=== PATIENT | female | born 1945 | race Caucasian/White ===

== ENCOUNTER 2018-03-21 14:32 | Inpatient (IN) ==
--- NOTE | 2018-03-21 14:42 | Emergency Department Note ---
Disposition Clinical Impression: Elevated troponin, Pulmonary edema, Pleural effusion CHF (congestive heart failure) Qualifiers: Heart failure type: unspecified Heart failure chronicity: acute Qualified Code( s): I50.9 - Heart failure, unspecified Renal failure Qualifiers: Renal failure chronicity: acute on chronic Acute renal failure type: unspecified Chronic kidney disease stage: unspecified stage Qualified Code(s): N17.9 - Acute kidney failure, unspecified; N18.9 - Chronic kidney disease, unspecified; N18.9 - Chronic kidney disease, unspecified Disposition: Admitted As Inpatient Condition: Fair Referrals: Fausto Gao DO [Primary Care Provider] - Time of Disposition: 16:29 SOB HPI - General Stated Complaint: LILIAM Time Seen by Provider: 03/21/18 14:34 Source: patient Mode of arrival: ambulatory Limitations: no limitations Nursing Notes Reviewed: Yes Vital Signs Reviewed: Yes - History of Present Illness Patient presents to the ED with the chief complaint of dyspnea. States that she has a history of COPD and it is been flaring up for about a month. States her shortness of breath worsened today and she has gotten to the point where she is having exertional symptoms, which she had not previously. Nonproductive cough. No fever, chest pain, abdominal pain, vomiting or diarrhea. Does complain of some chest tightness associated with her difficulty breathing. No history of DVT, PE or malignancy. States that she is on Plavix for some sort of aortic valve surgery, but she is unsure if this was a replacement or not and states that was many years ago. - Related Data Home Medications Medication Instructions Recorded Confirmed Aspirin [Lo-Dose Aspirin EC] 81 mg PO DAILY 06/15/16 06/15/16 Atenolol 100 mg PO DAILY 06/15/16 06/15/16 Clopidogrel [Plavix] 75 mg PO DAILY 06/15/16 06/15/16 Ergocalciferol (VITAMIN D2) 50,000 unit PO 3XW MDD mon, wed, 06/15/16 06/15/16 [Vitamin D2 (50,000 UNIT)] fri Isosorbide MONOnitrate (24 HR) 30 mg PO DAILY 06/15/16 06/15/16 [Imdur] Simvastatin [Zocor] 40 mg PO HS 06/15/16 06/15/16 amLODIPine [Norvasc] 10 mg PO DAILY 06/15/16 06/15/16 Previous Rx's Medication Instructions Recorded HYDROcodone/Acet 5/325 mg [[place] 1 tab PO Q6H PRN #14 tab 06/15/16 5-325 mg] Allergies Allergy/AdvReac Type Severity Reaction Status Date / Time Iodinated Contrast- Oral and AdvReac Nausea Verified 03/21/18 14:52 IV Dye Review of Systems: As reviewed in the HPI. All other systems reviewed are negative or normal. Past Medical History - Past Medical History Attestation: Yes The following information was validated with the patient. Source: patient Medical history: Reports: hyperlipidemia, hypertension, renal disease, valvular heart disease, other Surgical history: Reports: cholecystectomy, other Psychiatric history: Reports: no psych history - Social History Smoking Status: Never smoker Alcohol use: Reports: none Drug use: Reports: none Physical Exam - General Limitations: no limitations General appearance: alert, in distress (resp) - Head Head exam: atraumatic, normocephalic, normal inspection - ENT ENT exam: mucous membranes dry - Neck Neck exam: Present: normal inspection, full ROM, trachea midline - Chest Chest inspection: Present: normal inspection, symmetric chest wall rise - Respiratory Respiratory exam: Present: respiratory distress, accessory muscle use. Absent: normal lung sounds bilaterally, wheezes - Cardiovascular Cardiovascular exam: Present: tachycardia, normal heart sounds - Abdominal Exam Abdominal exam: Present: soft, Non-Tender. Absent: tenderness, distention, guarding, rebound, rigidity - Extremities Exam Extremities exam: Present: normal inspection, full ROM, normal capillary refill. Absent: tenderness, pedal edema - Neurological Exam Neurological exam: Present: alert, oriented X3 - Psychiatric Psychiatric exam: Present: normal affect, normal mood - Skin Skin exam: Present: warm, dry, intact, normal color Course Course Narrative: Patient presenting with dyspnea. Having chest tightness but no chest pain. States she has a history of COPD, but is not wheezing. We will check labs, EKG , chest x-ray. - Reevaluation(s) Reevaluation #1: Patient's family is now present and states that she is on peritoneal dialysis and has been for several years. She is followed by Dr. Lai. Her labs are coming back and does look like she is in acute congestive heart failure with pulmonary edema and a left-sided pleural effusion. Her lungs remained clear. There are no Rales, but her breath sounds are decreased at the bases. Her work of breathing. Has significantly improved. Her renal functions worse than usual , so I spoke with the on-call general accounting clerk, Dr. Cowan and we both agreed that the patient may eventually need temporary HD but that in the meantime, we should give her dose of Lasix. I also started her on a nitroglycerin drip due to her hypertension and congestive heart failure. We will admit to the hospitalist service for further workup. I do not think the patient needs BiPAP at this time, but a 2 North bed would likely be the best place for her in case she does not improve with IV medications. Patient family agreeable to plan. Vital Signs O2 Sat by Pulse Oximetry 98 03/21/18 14:52 Temperature 97.4 F L 03/21/18 14:57 Pulse Rate 93 03/21/18 15:00 Respiratory Rate 24 03/21/18 15:00 Blood Pressure 190/105 03/21/18 15:00 O2 Sat by Pulse Oximetry 98 03/21/18 15:00 Oxygen Delivery Oxygen Delivery Room Air Shortness of Breath/Dyspnea - Medical Records Medical records reviewed: Yes I reviewed the patient's medical records. - Lab Data Lab results reviewed: Yes I reviewed the patient's lab results. Result diagrams: 03/21/18 14:49 03/21/18 14:49 Lab Results 03/21/18 03/21/18 03/21/18 Range/Units 14:37 14:49 14:49 WBC 6.5 (4.3-11.1) K/mcL RBC 3.91 (3.82-4.97) M/mcL Hgb 11.8 (11.5-15.4) g/dL Hct 39.0 (35.3-44.9) % MCV 99.7 (83.0-100.0) fL MCH 30.2 (28.0-33.3) pg MCHC 30.3 L (31.6-35.5) g/dL RDW 15.7 H (11.5-14.5) % Plt Count 222 (140-400) K/mcL MPV 9.6 (9.4-12.4) fL Immature Gran % 0.3 (0-4) % Seg Neutrophils % 73.3 % Lymphocytes % 16.6 % Monocytes % 7.4 % Eosinophils % 1.6 % Basophils % 0.8 % Neutrophils # 4.7 (1.6-8.9) K/mcL Lymphocytes # 1.1 (0.6-4.6) K/mcL Monocytes # 0.5 (0.0-1.3) K/mcL Eosinophils # 0.1 (0.0-0.6) K/mcL Basophils # 0.1 (0.0-0.2) K/mcL PT 11.1 (9.4-12.1) Seconds INR 1.0 APTT 32.2 (26.0-36.0) Seconds Sodium 138 (136-145) mEq/L Potassium 5.9 H (3.5-5.1) mEq/L Chloride 112 H (98-107) mEq/L Carbon Dioxide 13 L (23-29) mEq/L BUN 79 H (8-23) mg/dL Creatinine 7.16 H (0.60-1.20) mg/dL Est GFR ( Amer) 7 L (> 60) Est GFR (Non-Af Amer) 6 L (> 60) BUN/Creatinine Ratio 11 (6-26) Glucose 98 (70-105) mg/dL Calculated Osmolality 310 H (280-300) Lactic Acid (0.5-2.2) mmol/L Calcium 9.2 (8.6-10.3) mg/dL Troponin I 0.18 H* (< 0.04) ng/mL B-Natriuretic Peptide (Less than 100) pg/mL 03/21/18 03/21/18 Range/Units 14:49 14:49 WBC (4.3-11.1) K/mcL RBC (3.82-4.97) M/mcL Hgb (11.5-15.4) g/dL Hct (35.3-44.9) % MCV (83.0-100.0) fL MCH (28.0-33.3) pg MCHC (31.6-35.5) g/dL RDW (11.5-14.5) % Plt Count (140-400) K/mcL MPV (9.4-12.4) fL Immature Gran % (0-4) % Seg Neutrophils % % Lymphocytes % % Monocytes % % Eosinophils % % Basophils % % Neutrophils # (1.6-8.9) K/mcL Lymphocytes # (0.6-4.6) K/mcL Monocytes # (0.0-1.3) K/mcL Eosinophils # (0.0-0.6) K/mcL Basophils # (0.0-0.2) K/mcL PT (9.4-12.1) Seconds INR APTT (26.0-36.0) Seconds Sodium (136-145) mEq/L Potassium (3.5-5.1) mEq/L Chloride (98-107) mEq/L Carbon Dioxide (23-29) mEq/L BUN (8-23) mg/dL Creatinine (0.60-1.20) mg/dL Est GFR ( Amer) (> 60) Est GFR (Non-Af Amer) (> 60) BUN/Creatinine Ratio (6-26) Glucose (70-105) mg/dL Calculated Osmolality (280-300) Lactic Acid 0.9 (0.5-2.2) mmol/L Calcium (8.6-10.3) mg/dL Troponin I (< 0.04) ng/mL B-Natriuretic Peptide 4901 H (Less than 100) pg/mL - Radiology Data Radiology results reviewed: Yes I reviewed the patient's radiology results. - EKG Data EKG attestation: Yes I reviewed and interpreted this EKG. EKG results narrative: Sinus rhythm, rate 99, NV interval 189, QRS 86, QTC 383, normal axis Critical Care Time Critical Care Time: Yes Total Critical Care Time: 30 Attestation: I personally spent ____30__ minutes devoted to the care of this critically ill patient. This time excludes the time for billable procedures.
[2018-03-21 14:59] LABS: Basophils # 0.1 K/mcL (0.0-0.2); Basophils % 0.8 %; Eosinophils # 0.1 K/mcL (0.0-0.6); Eosinophils % 1.6 %; Hemoglobin 11.8 g/dL (11.5-15.4); Immature Granulocytes % 0.3 % (0-4); Lymphocytes # 1.1 K/mcL (0.6-4.6); Lymphocytes % 16.6 %; Mean Corpuscular HGB Conc 30.3 g/dL (31.6-35.5); Mean Corpuscular Hemoglobin 30.2 pg (28.0-33.3); Mean Corpuscular Volume 99.7 fL (83.0-100.0); Mean Platelet Volume 9.6 fL (9.4-12.4); Monocytes # 0.5 K/mcL (0.0-1.3); Monocytes % 7.4 %; Neutrophils # 4.7 K/mcL (1.6-8.9); Platelet Count 222 K/mcL (140-400); Red Blood Count 3.91 M/mcL (3.82-4.97); Red Cell Distribution Width 15.7 % (11.5-14.5); Segmented Neutrophils % 73.3 %
[2018-03-21 15:07] LABS: Prothrombin Time 11.1 Seconds (9.4-12.1)
[2018-03-21 15:09] LABS: Activated Partial Thrombo Time 32.2 Seconds (26.0-36.0)
[2018-03-21 15:23] LABS: Calcium 9.2 mg/dL (8.6-10.3); Potassium 5.9 mEq/L (3.5-5.1)
[2018-03-21 15:30] LABS: Troponin I 0.18 ng/mL (< 0.04)
[2018-03-21] MEDS ORDERED: Aspirin 325 MG TABLET PO ONE (15:31)
[2018-03-21] MEDS ORDERED: Furosemide 40 MG/4 ML VIAL IVP ONE (15:48)
[2018-03-21] MEDS: Nitroglycerin 25 MG/250 ML INFUS..BTL IVC SCH (16:01)
--- NOTE | 2018-03-21 16:18 | Emergency Department Note ---
Disposition Clinical Impression: Elevated troponin, Pleural effusion CHF (congestive heart failure) Qualifiers: Heart failure type: unspecified Heart failure chronicity: acute Qualified Code( s): I50.9 - Heart failure, unspecified Renal failure Qualifiers: Renal failure chronicity: acute on chronic Acute renal failure type: unspecified Chronic kidney disease stage: unspecified stage Qualified Code(s): N17.9 - Acute kidney failure, unspecified Pulmonary edema Qualifiers: Qualified Code(s): J81.0 - Disposition: Admitted As Inpatient Condition: Fair General Adult HPI - General Stated complaint: LILIAM Time Seen by Provider: 03/21/18 14:34 Source: patient Mode of arrival: ambulatory Limitations: no limitations - History of Present Illness HPI Narrative: 72-year-old female with history of renal insufficiency presents ED because of difficulty breathing. She has had a to 3 progression of increasing dyspnea and orthopnea. Dyspnea is worse with exertion. Denies associated pain. She was seen today by her installation helper who sent her to the emergency department. Denies fevers, chills or rigors. No productive cough. No abdominal pain. No peripheral edema. She does do home peritoneal dialysis and has been doing so without any issues. Onset (ago): week(s) Location: chest Pain Severity: moderate Pain Scale: 0 Consistency: intermittent Improves with: immobilization Worsens with: other (Exertion) Associated symptoms: Denies: chest pain, cough - Related Data Home Medications Medication Instructions Recorded Confirmed Clopidogrel [Plavix] 75 mg PO DAILY 06/15/16 03/21/18 Ergocalciferol (VITAMIN D2) 50,000 unit PO 3XW MDD sat, sat, 06/15/16 03/21/18 [Vitamin D2 (50,000 UNIT)] fri Isosorbide MONOnitrate (24 HR) 60 mg PO DAILY 06/15/16 03/21/18 [Imdur] Simvastatin [Zocor] 40 mg PO HS 06/15/16 03/21/18 amLODIPine [Norvasc] 10 mg PO BID 06/15/16 03/21/18 Calcitriol [Rocaltrol] 0.25 mcg PO DAILY 03/21/18 03/21/18 Calcium Acetate [Phos-LO] 2 cap PO TID 03/21/18 03/21/18 Furosemide [Lasix] 40 mg PO 4XW 03/21/18 03/21/18 [place]-3/Dha/Epa/Fish Oil [Fish Oil 1 cap PO TID 03/21/18 03/21/18 1,000 mg Softgel] Sodium Bicarbonate 1,300 mg PO BID 03/21/18 03/21/18 hydrALAZINE [HydrALAZINE] 25 mg PO BID 03/21/18 03/21/18 Allergies Allergy/AdvReac Type Severity Reaction Status Date / Time Iodinated Contrast- Oral and AdvReac Nausea Verified 03/21/18 14:52 IV Dye All systems ED: reviewed and negative except as stated. Constitutional: Denies: fever Cardiovascular: Denies: chest pain Past Medical History - Past Medical History Attestation: Yes The following information was validated with the patient. Medical history: Reports: hyperlipidemia, hypertension, renal disease, valvular heart disease, other Surgical history: Reports: cholecystectomy, other Psychiatric history: Reports: no psych history - Social History Smoking Status: Never smoker Smokeless Tobacco Status: No Alcohol use: Reports: none Drug use: Reports: none Physical Exam - General Limitations: no limitations General appearance: alert, in distress (resp) - Eye Eye exam: Present: normal appearance - ENT ENT exam: normal exam, normal oropharynx - Neck Neck exam: Present: trachea midline - Chest Chest inspection: Present: symmetric chest wall rise - Respiratory Respiratory exam: Present: other (Breath sounds are diminished in the bases.) - Cardiovascular Cardiovascular exam: Present: irregular rhythm - Abdominal Exam Abdominal exam: Present: soft, Non-Tender - Extremities Exam Extremities exam: Absent: tenderness - Expanded Lower Extremity Exam Lower leg exam: Absent: tenderness, erythema Neurovascular/Tendon exam: Present: normal capillary refill - Back Exam Back exam: Present: normal inspection. Absent: CVA tenderness (R), CVA tenderness (L) - Neurological Exam Neurological exam: Present: alert, oriented X3 - Psychiatric Psychiatric exam: Present: normal affect, normal mood - Skin Skin exam: Present: warm, dry Course Course Narrative: Patient has a history of renal failure with a decline in her baseline renal function now with metabolic acidosis and a bicarbonate of 13. Potassium is 5.9 but without any hemodynamic effect or any widening of her cardiac complexes. She presents with pulmonary edema and bilateral pleural effusions. Case was discussed with nephrology. She will be admitted for attempts at diuresis and may require hemodialysis. Vital Signs O2 Sat by Pulse Oximetry 98 04/20/18 14:52 Temperature 97.4 F L 03/21/18 14:57 Pulse Rate 87 03/21/18 18:30 Respiratory Rate 24 03/21/18 18:30 Blood Pressure 181/108 03/21/18 18:30 O2 Sat by Pulse Oximetry 97 03/21/18 18:30 Oxygen Delivery Oxygen Delivery Room Air Medical Decision Making - Lab Data Result diagrams: 03/21/18 14:49 03/21/18 14:49 Lab Results 03/21/18 03/21/18 03/21/18 Range/Units 14:37 14:49 14:49 WBC 6.5 (4.3-11.1) K/mcL RBC 3.91 (3.82-4.97) M/mcL Hgb 11.8 (11.5-15.4) g/dL Hct 39.0 (35.3-44.9) % MCV 99.7 (83.0-100.0) fL MCH 30.2 (28.0-33.3) pg MCHC 30.3 L (31.6-35.5) g/dL RDW 15.7 H (11.5-14.5) % Plt Count 222 (140-400) K/mcL MPV 9.6 (9.4-12.4) fL Immature Gran % 0.3 (0-4) % Seg Neutrophils % 73.3 % Lymphocytes % 16.6 % Monocytes % 7.4 % Eosinophils % 1.6 % Basophils % 0.8 % Neutrophils # 4.7 (1.6-8.9) K/mcL Lymphocytes # 1.1 (0.6-4.6) K/mcL Monocytes # 0.5 (0.0-1.3) K/mcL Eosinophils # 0.1 (0.0-0.6) K/mcL Basophils # 0.1 (0.0-0.2) K/mcL PT 11.1 (9.4-12.1) Seconds INR 1.0 APTT 32.2 (26.0-36.0) Seconds Sodium 138 (136-145) mEq/L Potassium 5.9 H (3.5-5.1) mEq/L Chloride 112 H (98-107) mEq/L Carbon Dioxide 13 L (23-29) mEq/L BUN 79 H (8-23) mg/dL Creatinine 7.16 H (0.60-1.20) mg/dL Est GFR ( Amer) 7 L (> 60) Est GFR (Non-Af Amer) 6 L (> 60) BUN/Creatinine Ratio 11 (6-26) Glucose 98 (70-105) mg/dL Calculated Osmolality 310 H (280-300) Lactic Acid (0.5-2.2) mmol/L Calcium 9.2 (8.6-10.3) mg/dL Troponin I 0.18 H* (< 0.04) ng/mL B-Natriuretic Peptide (Less than 100) pg/mL Urine Color (Yellow) Urine Clarity (Clear) Urine pH (5.0-8.0) pH Units Ur Specific [place] (1.010-1.025) Urine Protein (Neg-Trace) mg/dL Urine Glucose (UA) (Normal) mg/dL Urine Ketones (Negative) mg/dL Urine Blood (Negative) Urine Nitrite (Negative) Urine Bilirubin (Negative) Urine Urobilinogen (Normal) mg/dL Ur Leukocyte Esterase (Negative) Urine Microscopic RBC (0-3) per hpf Urine Microscopic WBC (0-3) per hpf Ur Squamous Epith Cells (None-Few) per lpf Urine Bacteria (None-Few) per hpf Hyaline Casts (None-Few) per lpf Ur Culture Indicated? (NO) 03/21/18 03/21/18 03/21/18 Range/Units 14:49 14:49 16:47 WBC (4.3-11.1) K/mcL RBC (3.82-4.97) M/mcL Hgb (11.5-15.4) g/dL Hct (35.3-44.9) % MCV (83.0-100.0) fL MCH (28.0-33.3) pg MCHC (31.6-35.5) g/dL RDW (11.5-14.5) % Plt Count (140-400) K/mcL MPV (9.4-12.4) fL Immature Gran % (0-4) % Seg Neutrophils % % Lymphocytes % % Monocytes % % Eosinophils % % Basophils % % Neutrophils # (1.6-8.9) K/mcL Lymphocytes # (0.6-4.6) K/mcL Monocytes # (0.0-1.3) K/mcL Eosinophils # (0.0-0.6) K/mcL Basophils # (0.0-0.2) K/mcL PT (9.4-12.1) Seconds INR APTT (26.0-36.0) Seconds Sodium (136-145) mEq/L Potassium (3.5-5.1) mEq/L Chloride (98-107) mEq/L Carbon Dioxide (23-29) mEq/L BUN (8-23) mg/dL Creatinine (0.60-1.20) mg/dL Est GFR ( Amer) (> 60) Est GFR (Non-Af Amer) (> 60) BUN/Creatinine Ratio (6-26) Glucose (70-105) mg/dL Calculated Osmolality (280-300) Lactic Acid 0.9 (0.5-2.2) mmol/L Calcium (8.6-10.3) mg/dL Troponin I (< 0.04) ng/mL B-Natriuretic Peptide 4901 H (Less than 100) pg/mL Urine Color Yellow (Yellow) Urine Clarity Cloudy A (Clear) Urine pH 6.0 (5.0-8.0) pH Units Ur Specific [place] 1.015 (1.010-1.025) Urine Protein 100 H (Neg-Trace) mg/dL Urine Glucose (UA) Normal (Normal) mg/dL Urine Ketones Negative (Negative) mg/dL Urine Blood Small H (Negative) Urine Nitrite Negative (Negative) Urine Bilirubin Negative (Negative) Urine Urobilinogen Normal (Normal) mg/dL Ur Leukocyte Esterase Moderate H (Negative) Urine Microscopic RBC 0-3 (0-3) per hpf Urine Microscopic WBC 50-100 H (0-3) per hpf Ur Squamous Epith Cells None Seen (None-Few) per lpf Urine Bacteria Many H (None-Few) per hpf Hyaline Casts None Seen (None-Few) per lpf Ur Culture Indicated? YES A (NO) Attestation Statement - Attestation Attestation: I examined this patient and my medical decision-making was reviewed with the Resident Physician. I agree with the documented findings, disposition and treatment plan as described except to the extent set forth below.
[2018-03-21 17:16] LABS: Bilirubin,Urine Negative (Negative); Blood,Urine Small (Negative); Clarity,Urine Cloudy (Clear); Color,Urine Yellow (Yellow); Glucose,Urine (UA) Normal (Normal); Ketones,Urine Negative (Negative); Leukocyte Esterase,Urine Moderate (Negative); Nitrite,Urine Negative (Negative); Protein,Urine 100 mg/dL (Neg-Trace); Specific Gravity,Urine 1.015 (1.010-1.025); Urobilinogen,Urine Normal (Normal)
[2018-03-21 17:18] LABS: Bacteria,Urine Many per hpf (None-Few); Hyaline Casts,Urine None Seen per lpf (None-Few); RBC,Urine 0-3 per hpf (0-3); Squamous Epithelial Cell,Urine None Seen per lpf (None-Few); WBC,Urine 50-100 per hpf (0-3)
--- NOTE | 2018-03-21 17:45 | Nephrology Consult Note ---
Date of Encounter: 03/21/18 Time of Encounter: 17:30 Assessment and Plan (1) ESRD on peritoneal dialysis Current Visit: Yes Status: Chronic She has a hx of ESRD on PD for about 6-8 months and follows with my colleague Dr. Lai. PD has been via manual exchanges of 3 times per day, according to the pt, and was recently determined to be insufficient so she is being prepared for a home cycler, which has not yet occurred, she said. Due to her worsened volume status, she will need increased UF. PD can help achieve significant fluid removal by using 4.25% dextrose especially if she were to have 4 exchanges per 24hr. Plus to continue loop diuretics such as Lasix 40mg IV daily while hospitalized. I'll recommend starting this approach since she still makes urine. However, if she does not adequately respond to diuretics and / or have sufficient UF with PD, then she may need to be switched temporary to HD. I discussed this with the patient and her daughter was present in the ER room during the discussion. Hyperkalemia: diuretic will help and so will PD, which should provide clearance for correcting the hyperkalemia. I found outside labs from [facility] in their mobile [facility] EHR in which her SCr has been in the 6-7 range and her serum K+ has been near 5 if not sometimes higher. CHF: see above regarding fluid status recommendations. Should hold an JASON or ARB d/t the hyperkalemia. HTN: agree with the nitro gtt. The reported that she has had a long hx of elevated / uncontrolled BP and I also noted this in the [facility] EHR with typical BPs during visits with Dr. Lai near 160s-180s. Agree with nitro. Thank you for consulting the [facility] group. Will continue to follow with you. (2) CHF (congestive heart failure) Current Visit: Yes Status: Acute Qualifiers: Heart failure type: unspecified Heart failure chronicity: acute Qualified Code(s): I50.9 - Heart failure, unspecified (3) Pulmonary edema Current Visit: Yes Status: Acute Qualifiers: Qualified Code(s): J81.0 - Acute pulmonary edema (4) Hyperkalemia Current Visit: Yes Status: Acute History of Present Illness - Reason for Consult Consult date: 03/21/18 end stage renal disease Requesting physician: Frandy Billings - Chief Complaint ESRD, Edema/acute CHF - History of Present Illness Vera Norman is a very pleasant 72 y/o WF with a pmh of longstanding HTN, hx of Aortic dissection with resultant advanced CKD that recently progressed to ESRD requiring PD about 6-8 months ago, according to the patient while being interviewed and examined in the ER. Her primary nephrology is Dr. Lai, and this is the first time I've evaluated the pt. She affirmed that the etiology of he ESRD was primarily related to renovascular, and she denied having a hx of diabetic nephropathy. She has been receiving PD by manual exchanges about 3 times per day she said. Starting back in Nov, she and her daughter said that her shortness of breath was first noted, but has progressively worsened and culminated in the last few days to being severe. I logged into the [facility] EHR and then learned that the pt was seen by Dr. Lai today for a routine PD appt at [facility], and that she has instructed the pt to go to the ER. She voiced no new N/V/D, abd pain or problems with PD. She denied any recent PD problems such as blood in the PD drained fluid or fibrin in the PD fluid. She voiced that she's never had Peritonitis and not recent PD exit site problems either she affirmed. She affirmed that she still makes urine without any problem. She said that she does not have a PD dwelling currently instilled. Past Med Surg Social Fam HX - Past Medical History Medical history: hyperlipidemia, hypertension, renal disease, valvular heart disease, other Psychiatric history: no psych history - Past Surgical History Surgical History: cholecystectomy, other - Social History Smoking Status: Never smoker Smokeless Tobacco Status: No Alcohol use: none Drug use: none Medications and Allergies Clopidogrel [Plavix] 75 mg PO DAILY 06/15/16 [History] Ergocalciferol (VITAMIN D2) [Vitamin D2 (50,000 UNIT)] 50,000 unit PO 3XW MDD mon, wed, fri 06/15/16 [History] Isosorbide MONOnitrate (24 HR) [Imdur] 60 mg PO DAILY 06/15/16 [History] Simvastatin [Zocor] 40 mg PO HS 06/15/16 [History] amLODIPine [Norvasc] 10 mg PO BID 06/15/16 [History] Calcitriol [Rocaltrol] 0.25 mcg PO DAILY 03/21/18 [History] Calcium Acetate [Phos-LO] 2 cap PO TID 03/21/18 [History] Furosemide [Lasix] 40 mg PO 4XW 03/21/18 [History] [place]-3/Dha/Epa/Fish Oil [Fish Oil 1,000 mg Softgel] 1 cap PO TID 03/21/18 [ History] Sodium Bicarbonate 1,300 mg PO BID 03/21/18 [History] hydrALAZINE [HydrALAZINE] 25 mg PO BID 03/21/18 [History] 3 Allergy/AdvReac Type Severity Reaction Status Date / Time Iodinated Contrast- Oral and AdvReac Nausea Verified 03/21/18 14:52 IV Dye Review of Systems All Systems: reviewed and no additional remarkable complaints except as stated Exam - Vital Signs Vital signs: Initial Vital Signs Pulse Ox 98 03/21/18 14:52 Vital Signs - Last 8 Hours Temp Pulse Resp BP Pulse Ox 03/21/18 17:30 90 24 197/116 98 03/21/18 17:00 101 24 189/105 98 03/21/18 16:30 89 24 192/107 98 03/21/18 16:00 90 24 198/108 98 03/21/18 15:30 94 26 186/103 97 03/21/18 15:00 93 24 190/105 98 03/21/18 14:57 97.4 F L 97 28 191/111 98 03/21/18 14:52 98 Intake and Output 03/21/18 03/21/18 03/21/18 07:59 15:59 23:59 Other: Weight 63.957 kg Patient Weight 03/21/18 23:59 Weight 63.957 kg - General Appearance General appearance: well-developed, well-nourished, appears started age, obese EENT: ATNC, PERRL, mucous membranes moist Neck: no JVD, supple Respiratory: rales, course breath sounds Cardiology: edema (tense trace to 1+ pretibial pitting edema bilaterally), regular rate, regular rhythm, normal S1, normal S2 - Dialysis Access Additional Comments: PD catheter was C/D/I Gastrointestinal: normoactive bowel sounds, no tenderness, no guarding, obese Integumentary: no rash, warm and dry Neurologic: no focal deficit, no asterixis, alert and oriented x3 Musculoskeletal: no deformities, no erythema, no cyanosis, no clubbing Psychiatric: mood/affect appropriate, cooperative Results - Lab Results 03/21/18 14:49 03/21/18 14:49 Most recent lab results Calcium 9.2 mg/dL (8.6-10.3) 03/21/18 14:49 I reviewed the labs, med lists, vitals, imaging and progress notes of both inpt and outpt PD notes in the mobile [facility] [facility] EHR. Consult Discharge Plan - Plan Referrals: Fausto Gao DO [Primary Care Provider] -
[2018-03-21] MEDS ORDERED: Dextrose 50 % in Water (Vial) 110 ML in Perit. Dialysis with Dex 1.5 % 2,000 ML PERITONEAL SCH (20:00)
--- NOTE | 2018-03-21 22:10 | Internal Med History&Physical ---
Date of Encounter: 03/21/18 Time of Encounter: 22:00 Internal Medicine - H&P: HPI Chief complaint: shortness of breath Admitted From: Home History of present illness: Ms. Austin is a 72 year old female with prior medical history end-stage renal disease on peritoneal dialysis, hypertension, aortic dissection with resultant advanced chronic kidney disease requiring peritoneal dialysis 6-8 months ago, renovascular etiology of ESRD was seen for a routine appointment at the [facility] by Dr. Lai and advised to go to the emergency room. Apparently patient had chest x-ray in the emergency room suggestive of pulmonary edema and labs suggestive of decompensated renal failure with hyperkalemia and metabolic acidosis. Nephrology evaluated patient and made recommendations to change peritoneal dialysate and diuretics diuresis. Patient denies any other symptoms at this time. She wishes to go home soon. Past Med Surg Social Fam HX - Past Medical History Medical history: hyperlipidemia, hypertension, renal disease, valvular heart disease, other Psychiatric history: no psych history - Past Surgical History Surgical History: cholecystectomy, other - Social History Smoking Status: Never smoker Smokeless Tobacco Status: No Alcohol use: none Drug use: none Internal Medicine - H&P: Meds Clopidogrel [Plavix] 75 mg PO DAILY 06/15/16 [History] Ergocalciferol (VITAMIN D2) [Vitamin D2 (50,000 UNIT)] 50,000 unit PO 3XW MDD mon, wed, fri 06/15/16 [History] Isosorbide MONOnitrate (24 HR) [Imdur] 60 mg PO DAILY 06/15/16 [History] Simvastatin [Zocor] 40 mg PO HS 06/15/16 [History] amLODIPine [Norvasc] 10 mg PO BID 06/15/16 [History] Calcitriol [Rocaltrol] 0.25 mcg PO DAILY 03/21/18 [History] Calcium Acetate [Phos-LO] 2 cap PO TID 03/21/18 [History] Furosemide [Lasix] 40 mg PO 4XW 03/21/18 [History] Oreana-3/Dha/Epa/Fish Oil [Fish Oil 1,000 mg Softgel] 1 cap PO TID 03/21/18 [ History] Sodium Bicarbonate 1,300 mg PO BID 03/21/18 [History] hydrALAZINE [HydrALAZINE] 25 mg PO BID 03/21/18 [History] 3 Allergy/AdvReac Type Severity Reaction Status Date / Time Iodinated Contrast- Oral and AdvReac Nausea Verified 03/21/18 14:52 IV Dye All Systems PM: A 10-system review of systems was performed and is negative for pertinent findings except as documented above in the HPI. Review of systems: Negative except above - Constitutional Vitals: Temp Pulse Resp BP Pulse Ox 98.3 F 88 16 167/101 96 03/21/18 20:42 03/21/18 20:42 03/21/18 20:42 03/21/18 20:42 03/21/18 21:27 General appearance: Present: A&O X 3 Exam: Physical exam Gen: Comfortable, laying in bed, in no visible distress HEENT: Normocephalic, atraumatic. No conjunctival icterus. Moist oral mucosa. Neck: Supple Lungs: Clear to auscultation, no foreign sounds Heart: Normal S1-S2, no murmurs rubs or gallops Abdomen: Normoactive bowel sounds, no guarding rigidity or tenderness Extremities: No edema clubbing or cyanosis Neuro: Alert oriented 3, no focal deficits Skin: No skin lesions Internal Med - H&P Results - Labs CBC & Chem 7: 03/21/18 14:49 03/21/18 14:49 - Assessment and plan (1) Pulmonary edema Current Visit: Yes Status: Acute Assessment and plan: Pulmonary edema likely related to volume overload from decompensated renal failure and uncontrolled blood pressure causing diastolic heart failure. - Diuresis and peritoneal dialysis per nephrology recommendations (2) CHF (congestive heart failure) Current Visit: Yes Status: Acute Assessment and plan: Peritoneal dialysis and diuresis. Control blood pressure Qualifiers: Heart failure type: diastolic Heart failure chronicity: acute Qualified Code(s): I50.31 - Acute diastolic (congestive) heart failure (3) Elevated troponin Current Visit: Yes Status: Acute Assessment and plan: Likely from ESRD, will cycle. (4) Hyperkalemia Current Visit: Yes Status: Acute Assessment and plan: Likely from ESRD. (5) Renal failure Current Visit: Yes Status: Acute Qualifiers: Renal failure chronicity: acute on chronic Acute renal failure type: unspecified Chronic kidney disease stage: unspecified stage Qualified Code(s ): N17.9 - Acute kidney failure, unspecified; N18.9 - Chronic kidney disease, unspecified; N18.9 - Chronic kidney disease, unspecified (6) ESRD on peritoneal dialysis Current Visit: Yes Status: Chronic (7) Advance directive discussed with patient Current Visit: Yes Status: Acute Assessment and plan: Full code POA: daughter and son - Time Spent With Patient Total time spent is greater than 50% in coordination of care (as documented) at patient's floor/unit and/or counseling patient: 25 - 35 minutes
[2018-03-21] MEDS ORDERED: Naloxone 0.4 MG/ML INJ IVP PRN (22:13)
[2018-03-21] MEDS: Calcium Acetate 667 MG CAPSULE PO SCH (23:10)
[2018-03-21] MEDS: amLODIPine 5 MG TABLET PO SCH (23:10)
[2018-03-21] MEDS: Isosorbide MONOnitrate (24 HR) 30 MG TAB.ER.24H PO SCH (23:10)
[2018-03-21] MEDS: hydrALAZINE 25 MG TABLET PO SCH (23:11)
[2018-03-22] MEDS: Dextrose 50 % in Water (Vial) 110 ML in Perit. Dialysis with Dex 1.5 % 2,000 ML PERITONEAL SCH ×3 (00:19→12:34)
[2018-03-22 04:16] LABS: Basophils % 0.9 %; Eosinophils # 0.2 K/mcL (0.0-0.6); Eosinophils % 3.6 %; Hematocrit 31.2 % (35.3-44.9); Immature Granulocytes % 0.5 % (0-4); Lymphocytes # 0.9 K/mcL (0.6-4.6); Lymphocytes % 19.3 %; Mean Corpuscular HGB Conc 30.8 g/dL (31.6-35.5); Mean Corpuscular Hemoglobin 29.7 pg (28.0-33.3); Mean Corpuscular Volume 96.6 fL (83.0-100.0); Mean Platelet Volume 9.6 fL (9.4-12.4); Monocytes # 0.4 K/mcL (0.0-1.3); Monocytes % 9.3 %; Neutrophils # 2.9 K/mcL (1.6-8.9); Platelet Count 186 K/mcL (140-400); Red Blood Count 3.23 M/mcL (3.82-4.97); Red Cell Distribution Width 15.5 % (11.5-14.5); Segmented Neutrophils % 66.4 %
[2018-03-22 04:28] LABS: Hemoglobin 9.6 g/dL (11.5-15.4)
[2018-03-22 04:33] LABS: Albumin 3.3 g/dL (3.5-5.7); Calcium 8.5 mg/dL (8.6-10.3); Magnesium 1.7 mg/dL (1.6-2.6); Phosphorous 5.8 mg/dL (2.7-4.5); Potassium 5.1 mEq/L (3.5-5.1)
[2018-03-22] MEDS: amLODIPine 5 MG TABLET PO SCH ×2 (08:23→20:28)
[2018-03-22] MEDS: Isosorbide MONOnitrate (24 HR) 30 MG TAB.ER.24H PO SCH (08:23)
[2018-03-22] MEDS: hydrALAZINE 25 MG TABLET PO SCH ×2 (08:23→20:28)
[2018-03-22] MEDS: [Fish Oil 1,000 Mg PO SCH ×3 (08:24→20:34)
[2018-03-22] MEDS: Calcium Acetate 667 MG CAPSULE PO SCH ×3 (08:24→17:08)
[2018-03-22] MEDS ORDERED: Furosemide 40 MG/4 ML VIAL IVP SCH (09:00)
--- NOTE | 2018-03-22 10:14 | Nephrology Progress Note ---
Date of Encounter: 03/22/18 Time of Encounter: 08:30 - Assessment and Plan (1) ESRD on peritoneal dialysis Current Visit: Yes Status: Chronic Continue manual PD (she has never been on a Cycler according to the p), and to use 4.25% for added UF with each exchange. I also recommend continuing diuretics , and I will increase her to 40mg IV BID. After this admission, she will need to take Lasix 40mg po bid until she can be trained on a PD cycler. Would recommend a fluid restriction of <2L per day and sodium restriction. I do not think there is any acute renal decline, as I reviewed her outside labs dating back several weeks and months in the [facility] and she has been ESRD for about 6-8 months; her SCr and serum CO2 and serum K+ are at present within these ranges. Also, the SCr baseline is not relevant after patients progress into ESRD, just Kt/V. Hyperkalemia: trending better. Recommend a renal diet (i.e., now K+ and low Phos ) Hyperphosphatemia: counseled her to avoid foods that are rich in Phos. Continue to follow a renal protective strategy and dose renally cleared Rx by GFR. Will follow with you. (2) CHF (congestive heart failure) Current Visit: Yes Status: Acute As per primary. Does she need an Echo or the elevated trops addressed? Will defer to primary. In the meantime, from a volume perspective, I will continue UF via high dextrose based PD to remove more fluid than her standard PD, plus increase Lasix to 40mg IV BID. Qualifiers: Heart failure type: diastolic Heart failure chronicity: acute Qualified Code(s): I50.31 - Acute diastolic (congestive) heart failure (3) Pulmonary edema Current Visit: Yes Status: Acute She remains dyspneic, so see above. Qualifiers: Chronicity: acute Qualified Code(s): J81.0 - Acute pulmonary edema (4) Hyperkalemia Current Visit: Yes Status: Chronic See above. (5) Hyperphosphatemia Current Visit: Yes Status: Chronic see above Subjective Principal diagnosis: ESRD on PD, Acute CHF/dyspnea Interval history: Pt was s/e this AM, and she affirmed that she has made "lots" of UOP (though it was not captured and recorded in the I/Os it appears). She also reported no abd pain or fibrin or other problems with the PD manual exchanges. She said that she remains very short of breath. Objective - Vital Signs Vital signs: Vital Signs Temp Pulse Resp BP Pulse Ox 03/22/18 08:05 97.4 F L 94 21 136/80 97 03/22/18 07:44 94 03/22/18 04:04 97.5 F L 76 16 101/64 94 03/22/18 03:03 108/64 03/21/18 23:57 98 F 90 16 166/85 96 Intake and Output 03/21/18 03/22/18 03/22/18 23:59 07:59 15:59 Intake Total 150 / 150 Balance 150 / 150 Intake: IV Fluids 150 / 150 Nitroglycerin Premix 25 MG/250 150 / 150 ML 25 mg In 250 ml @ 10 MCG/MIN 6 mls/hr IVC .Q24H SRUTHI Rx#: [id number] Other: Total Peritoneal Dialysis -540 Output # Voids 1 Weight 65.68 kg Patient Weight 03/22/18 23:59 Weight 65.68 kg - General Appearance General appearance: Present: well-developed, well-nourished, appears started age , obese EENT: Present: ATNC, PERRL, mucous membranes moist Neck: Present: supple Respiratory: Present: course breath sounds Cardiology: Present: regular rate, regular rhythm, normal S1, normal S2 Additional Comments: PD catheter site was nontender to palpation. Gastrointestinal: Present: normoactive bowel sounds, no tenderness, no guarding Integumentary: Present: no rash, warm and dry Neurologic: Present: no focal deficit, no asterixis, alert and oriented x3 Musculoskeletal: Present: no deformities, no erythema, no clubbing Psychiatric: Present: mood/affect appropriate, cooperative - Lab 03/22/18 03:45 03/22/18 03:45 Most recent lab results Calcium 8.5 mg/dL (8.6-10.3) L 03/22/18 03:45 Phosphorus 5.8 mg/dL (2.7-4.5) H 03/22/18 03:45 Magnesium 1.7 mg/dL (1.6-2.6) 03/22/18 03:45 Consult Discharge Plan - Plan Referrals: Fausto Gao DO [Primary Care Provider] -
[2018-03-22] MEDS: Nitroglycerin 25 MG/250 ML INFUS..BTL IVC SCH (15:30)
--- NOTE | 2018-03-22 17:13 | Internal Med Progress Note ---
Date of Encounter: 03/22/18 Time of Encounter: 16:00 - Assessment and plan (1) ESRD on peritoneal dialysis Current Visit: Yes Status: Chronic (2) Pulmonary edema Current Visit: Yes Status: Acute Assessment and plan: Pulmonary edema likely related to volume overload from decompensated renal failure and uncontrolled blood pressure causing diastolic heart failure. - Diuresis and peritoneal dialysis per nephrology recommendations -Repeat EKG and echo (3) CHF (congestive heart failure) Current Visit: Yes Status: Acute Assessment and plan: Peritoneal dialysis and diuresis. Control blood pressure repeat EKG and echo.. Qualifiers: Heart failure type: diastolic Heart failure chronicity: acute Qualified Code(s): I50.31 - Acute diastolic (congestive) heart failure (4) Elevated troponin Current Visit: Yes Status: Acute Assessment and plan: Likely from ESRD, will stop cycling. (5) Hyperkalemia Current Visit: Yes Status: Chronic Assessment and plan: Improved with changes in peritoneal dialysate. (6) Renal failure Current Visit: Yes Status: Chronic Qualifiers: Renal failure chronicity: acute on chronic Acute renal failure type: unspecified Chronic kidney disease stage: unspecified stage Qualified Code(s ): N17.9 - Acute kidney failure, unspecified; N18.9 - Chronic kidney disease, unspecified; N18.9 - Chronic kidney disease, unspecified (7) Advance directive discussed with patient Current Visit: Yes Status: Acute Assessment and plan: Full code POA: daughter and son - Time Spent With Patient Total time spent is greater than 50% in coordination of care (as documented) at patient's floor/unit and/or counseling patient: 25 - 35 minutes - Subjective Interval history: No interval developments. She reports no new symptoms. - Constitutional Vitals: Temp Pulse Resp BP Pulse Ox 98.0 F 84 17 97/58 98 03/22/18 16:25 03/22/18 16:25 03/22/18 16:25 03/22/18 16:25 03/22/18 16:25 General appearance: Present: A&O X 3 Exam: Physical exam Gen: Comfortable, laying in bed, in no visible distress HEENT: Normocephalic, atraumatic. No conjunctival icterus. Moist oral mucosa. Neck: Supple Lungs: Clear to auscultation, no foreign sounds Heart: Normal S1-S2, no murmurs rubs or gallops Abdomen: Normoactive bowel sounds, no guarding rigidity or tenderness Extremities: No edema clubbing or cyanosis Neuro: Alert oriented 3, no focal deficits Skin: No skin lesions Internal Medicine: Result - Labs CBC & Chem 7: 03/22/18 03:45 03/22/18 03:45 Labs: Short CBC 03/22/18 Range/Units 03:45 WBC 4.4 (4.3-11.1) K/mcL Hgb 9.6 L D (11.5-15.4) g/dL Hct 31.2 L (35.3-44.9) % Plt Count 186 (140-400) K/mcL Neutrophils # 2.9 (1.6-8.9) K/mcL BMP 03/22/18 03:45 Sodium 140 Potassium 5.1 Chloride 113 H Carbon Dioxide 16 L BUN 70 H Creatinine 6.98 H Glucose 140 H Calcium 8.5 L Cardiac Enzymes 03/22/18 03/22/18 Range/Units 03:45 15:55 Troponin I 0.15 H* 0.13 H* (< 0.04) ng/mL Liver Function 03/22/18 Range/Units 03:45 Albumin 3.3 L (3.5-5.7) g/dL - ABG Interpretation ABG results: PT/INR, D-dimer PT 11.1 Seconds (9.4-12.1) 03/21/18 14:37 Consult Discharge Plan - Plan Referrals: Fausto Gao DO [Primary Care Provider] -
[2018-03-22] MEDS: WATER PERITONEAL SCH (18:03)
[2018-03-22] MEDS: DEX PERITONEAL SCH (18:03)
[2018-03-22] MEDS: PERIT DIALYSIS PERITONEAL SCH (18:03)
[2018-03-22] MEDS: DEXTROSE 50% PERITONEAL SCH (18:03)
[2018-03-22] MEDS: *HR* Heparin 5,000 UNIT/ML VIAL SQ SCH (18:03)
[2018-03-22] MEDS: Furosemide 40 MG/4 ML VIAL IVP SCH (20:29)
[2018-03-23] MEDS: DEXTROSE 50% PERITONEAL SCH ×4 (00:22→18:03)
[2018-03-23] MEDS: WATER PERITONEAL SCH ×4 (00:22→18:03)
[2018-03-23] MEDS: PERIT DIALYSIS PERITONEAL SCH ×4 (00:22→18:03)
[2018-03-23] MEDS: DEX PERITONEAL SCH ×4 (00:22→18:03)
[2018-03-23 04:49] LABS: Basophils % 0.8 %; Eosinophils # 0.2 K/mcL (0.0-0.6); Hematocrit 33.5 % (35.3-44.9); Hemoglobin 10.5 g/dL (11.5-15.4); Immature Granulocytes % 0.2 % (0-4); Lymphocytes % 19.2 %; Mean Corpuscular HGB Conc 31.3 g/dL (31.6-35.5); Mean Corpuscular Hemoglobin 29.7 pg (28.0-33.3); Mean Corpuscular Volume 94.9 fL (83.0-100.0); Mean Platelet Volume 9.7 fL (9.4-12.4); Monocytes # 0.6 K/mcL (0.0-1.3); Monocytes % 11.6 %; Neutrophils # 3.3 K/mcL (1.6-8.9); Platelet Count 199 K/mcL (140-400); Red Blood Count 3.53 M/mcL (3.82-4.97); Red Cell Distribution Width 15.7 % (11.5-14.5); Segmented Neutrophils % 65.2 %
[2018-03-23 05:11] LABS: Calcium 9.1 mg/dL (8.6-10.3)
[2018-03-23] MEDS: *HR* Heparin 5,000 UNIT/ML VIAL SQ SCH ×2 (06:15→18:19)
[2018-03-23] MEDS: amLODIPine 5 MG TABLET PO SCH (08:16)
[2018-03-23] MEDS: Isosorbide MONOnitrate (24 HR) 30 MG TAB.ER.24H PO SCH (08:16)
[2018-03-23] MEDS: hydrALAZINE 25 MG TABLET PO SCH ×2 (08:16→20:38)
[2018-03-23] MEDS: Furosemide 40 MG/4 ML VIAL IVP SCH ×2 (08:17→16:56)
[2018-03-23] MEDS: Calcium Acetate 667 MG CAPSULE PO SCH ×3 (08:17→16:55)
[2018-03-23] MEDS: [Fish Oil 1,000 Mg PO SCH ×3 (08:18→20:57)
--- NOTE | 2018-03-23 08:34 | Nephrology Progress Note ---
Date of Encounter: 03/23/18 Time of Encounter: 07:45 - Assessment and Plan (1) ESRD on peritoneal dialysis Current Visit: Yes Status: Chronic Continue manual PD 2L every 4 times per day with the 4.25% dextrat for added UF with each exchange. After this discharge, I recommend her oral Lasix be changed to Lasix 40mg PO BID. Additionally, now that her volume status is improving her dyspnea persists (she rated it today as a 6 out of 10 in terms of feeling short of breath), I recommend work up for other forms of dyspnea. 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 Consider starting a work up for COPD vs ILD vs other. I'll order a Pa/Lat CXR, which would give a better view than the initial one-view CXR as take when she was first admitted in the ER. I'll also start prn breathing treatments. CHF: her BNP is much improved. Will defer TTE if indicated to the primary team Hyperkalemia: trending better. Recommend a renal diet (i.e., now K+ and low Phos ) Hyperphosphatemia: counseled her to avoid foods that are rich in Phos. Continue the phos binder Phoslo. Continue to follow a renal protective strategy and dose renally cleared Rx by GFR. Will follow with you. (2) CHF (congestive heart failure) Current Visit: Yes Status: Acute As per primary. See above Qualifiers: Heart failure type: diastolic Heart failure chronicity: acute Qualified Code(s): I50.31 - Acute diastolic (congestive) heart failure (3) Pulmonary edema Current Visit: Yes Status: Acute She remains dyspneic, so see above. However, her volume status is improving. Also consider other DDx for the dyspnea. Qualifiers: Chronicity: acute Qualified Code(s): J81.0 - Acute pulmonary edema (4) Hyperkalemia Current Visit: Yes Status: Chronic See above. Improving. (5) Hyperphosphatemia Current Visit: Yes Status: Chronic see above. Subjective Principal diagnosis: ESRD on PD, Acute CHF/dyspnea Interval history: Pt was s/e this AM and I discussed her UF with PD exchanges with both the night and day shift RNs. The pt said her level of shortness of breath was rated today at "6" out of 10 in terms of severity. She did not affirm CP or N/V/F/C or dysuria; however, she voiced that she has a diminished appetite. 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 Objective - Vital Signs Vital signs: Vital Signs Temp Pulse Resp BP Pulse Ox 03/23/18 07:56 98.6 F 99 23 111/69 98 03/23/18 07:51 96 03/23/18 04:04 97.6 F 86 18 120/72 96 03/23/18 00:23 98 F 93 18 103/70 96 03/22/18 20:59 98.6 F 99 18 106/70 99 03/22/18 20:38 98 03/22/18 20:27 106/70 03/22/18 16:25 98.0 F 84 17 97/58 98 03/22/18 11:35 98.0 F 96 18 95/60 98 Intake and Output 03/22/18 03/23/18 03/23/18 23:59 07:59 15:59 Intake Total 120 / 120 Balance 120 / 120 Intake: Oral 120 / 120 Other: Meal Dinner Percent of Meal Consumed 25% Total Peritoneal Dialysis -220 50 Output Weight 65.8 kg 65.431 kg Patient Weight 03/23/18 23:59 Weight 65.431 kg - General Appearance General appearance: Present: well-developed, well-nourished, appears started age EENT: Present: ATNC, PERRL, mucous membranes moist Respiratory: Present: course breath sounds Cardiology: Present: no edema, normal S1, normal S2 Additional Comments: PD catheter with dressing C/D/I. Gastrointestinal: Present: normoactive bowel sounds, no tenderness, no guarding , distended (with PD fluid dwelling in place) Integumentary: Present: no rash, warm and dry Neurologic: Present: no focal deficit, no asterixis, alert and oriented x3 Musculoskeletal: Present: no deformities, no erythema, no clubbing Psychiatric: Present: mood/affect appropriate, cooperative - Lab 03/23/18 04:18 03/23/18 04:18 Most recent lab results Calcium 9.1 mg/dL (8.6-10.3) 03/23/18 04:18 Phosphorus 5.8 mg/dL (2.7-4.5) H 03/22/18 03:45 Magnesium 1.7 mg/dL (1.6-2.6) 03/22/18 03:45 Consult Discharge Plan - Plan Referrals: Fausto Gao DO [Primary Care Provider] -
[2018-03-23] MEDS ORDERED: Albuterol 2.5 MG/3 ML NEBULIZER IH PRN (08:39)
[2018-03-23] MEDS: Nitroglycerin 25 MG/250 ML INFUS..BTL IVC SCH (15:12)
--- NOTE | 2018-03-23 15:38 | Internal Med Progress Note ---
Date of Encounter: 03/23/18 Time of Encounter: 15:35 - Assessment and plan (1) ESRD on peritoneal dialysis Current Visit: Yes Status: Chronic Assessment and plan: Improving with adjustment of peritoneal dialysis and IV diuresis. Likely discharge tomorrow or day after. Acidemia has improved, so has hyperkalemia. (2) Pulmonary edema Current Visit: Yes Status: Acute Assessment and plan: Improved with diuresis and change in dialysate. With BNP of 1500+, her dyspnea is still due to volume overload. We should hold off on looking for COPD and other etiologies. X-ray shows persistent congestion and pleural effusion. (3) CHF (congestive heart failure) Current Visit: Yes Status: Acute Assessment and plan: Peritoneal dialysis and diuresis. Control blood pressure and follow echo results. Qualifiers: Heart failure type: diastolic Heart failure chronicity: acute Qualified Code(s): I50.31 - Acute diastolic (congestive) heart failure (4) Elevated troponin Current Visit: Yes Status: Acute Assessment and plan: Likely from ESRD (5) Hyperkalemia Current Visit: Yes Status: Resolved (6) Renal failure Current Visit: Yes Status: Chronic Qualifiers: Renal failure chronicity: acute on chronic Acute renal failure type: unspecified Chronic kidney disease stage: unspecified stage Qualified Code(s ): N17.9 - Acute kidney failure, unspecified; N18.9 - Chronic kidney disease, unspecified; N18.9 - Chronic kidney disease, unspecified (7) Advance directive discussed with patient Current Visit: Yes Status: Acute Assessment and plan: Full code POA: daughter and son - Time Spent With Patient Total time spent is greater than 50% in coordination of care (as documented) at patient's floor/unit and/or counseling patient: 25 - 35 minutes - Subjective Interval history: No interval developments. She reports no new symptoms. Dyspnea has improved - Constitutional Vitals: Temp Pulse Resp BP Pulse Ox 98.7 F 95 23 98/61 96 03/23/18 11:22 03/23/18 11:22 03/23/18 11:22 03/23/18 11:22 03/23/18 11:22 General appearance: Present: A&O X 3 Exam: Physical exam Gen: Comfortable, laying in bed, in no visible distress HEENT: Normocephalic, atraumatic. No conjunctival icterus. Moist oral mucosa. Neck: Supple Lungs: crackles Heart: Normal S1-S2, no murmurs rubs or gallops Abdomen: Normoactive bowel sounds, no guarding rigidity or tenderness Extremities: No edema clubbing or cyanosis Neuro: Alert oriented 3, no focal deficits Skin: No skin lesions Internal Medicine: Result - Labs CBC & Chem 7: 03/23/18 04:18 03/23/18 04:18 Labs: Short CBC 03/23/18 Range/Units 04:18 WBC 5.0 (4.3-11.1) K/mcL Hgb 10.5 L (11.5-15.4) g/dL Hct 33.5 L (35.3-44.9) % Plt Count 199 (140-400) K/mcL Neutrophils # 3.3 (1.6-8.9) K/mcL BMP 03/23/18 04:18 Sodium 138 Potassium 4.0 Chloride 106 Carbon Dioxide 20 L BUN 57 H Creatinine 6.33 H Glucose 129 H Calcium 9.1 Cardiac Enzymes 03/22/18 Range/Units 15:55 Troponin I 0.13 H* (< 0.04) ng/mL - ABG Interpretation ABG results: PT/INR, D-dimer PT 11.1 Seconds (9.4-12.1) 03/21/18 14:37 - Impressions Impressions Chest X-Ray 03/23/18 08:38 IMPRESSION: Improved appearance demonstrating decreased pulmonary vascular congestion. Persistent opacification the left lung base could represent a left pleural effusion and possibly atelectasis or pneumonia D/ / Ambrocio Medina MD / Ambrocio Medina MD Interpreting Provider: Ambrocio Medina MD Consult Discharge Plan - Plan Referrals: Fausto Gao DO [Primary Care Provider] -
[2018-03-24] MEDS: WATER PERITONEAL SCH ×3 (00:24→12:19)
[2018-03-24] MEDS: DEXTROSE 50% PERITONEAL SCH ×3 (00:24→12:19)
[2018-03-24] MEDS: DEX PERITONEAL SCH ×3 (00:24→12:19)
[2018-03-24] MEDS: PERIT DIALYSIS PERITONEAL SCH ×3 (00:24→12:19)
[2018-03-24 04:42] LABS: Calcium 8.9 mg/dL (8.6-10.3); Magnesium 1.4 mg/dL (1.6-2.6); Phosphorous 4.2 mg/dL (2.7-4.5); Potassium 3.7 mEq/L (3.5-5.1)
[2018-03-24] MEDS: *HR* Heparin 5,000 UNIT/ML VIAL SQ SCH (06:21)
--- NOTE | 2018-03-24 08:55 | Nephrology Progress Note ---
Date of Encounter: 03/24/18 Time of Encounter: 08:30 - Assessment and Plan (1) ESRD on peritoneal dialysis Current Visit: Yes Status: Chronic Her volume status is tato with cramping now. Will plan to add oral Mg. Cont lasix, but would change her to Lasix 40mg po BID at discharge. Will defer her systolic CHF to the primary team. LLL ?Pneumonia vs Atelectasis and E. coli UTI: will defer to primary. Okay to discharge from a PD perspective, and would have her resume her typical PD manual exchanges (but to change to four times per day instead of just thee times per day) until she can be trained for a cycler. Hyperkalemia has improved. Continue to follow a renal protective strategy and dose renally cleared Rx by GFR. Will follow with you. (2) CHF (congestive heart failure) Current Visit: Yes Status: Acute As per primary. I reviewed the echo demonstrating an LVEF of 25-30%, so this would be an acute on chronic Systolic CHF event. Will defer to the primary team. Qualifiers: Heart failure type: diastolic Heart failure chronicity: acute Qualified Code(s): I50.31 - Acute diastolic (congestive) heart failure (3) Pulmonary edema Current Visit: Yes Status: Acute She remains dyspneic, so see above. However, her volume status is improving. Also consider other DDx for the dyspnea. Qualifiers: Chronicity: acute Qualified Code(s): J81.0 - Acute pulmonary edema (4) Hyperkalemia Current Visit: Yes Status: Resolved See above. Improving. (5) Hyperphosphatemia Current Visit: Yes Status: Chronic see above. (6) Hypomagnesemia Current Visit: Yes Status: Acute Likely from the excellent Clearance provided this weekend. I recommend she start Mag oxide 400mg po bid, and to continue this for 1 month, to be reassessed by her outside eligibility examiner. (7) Hypertension Current Visit: Yes Status: Chronic Generally I would not recommend amlodipine with simvastatin, but since this pt was on it chronically, I'll defer it to her primary eligibility examiner. Qualifiers: Hypertension type: renovascular hypertension Qualified Code(s): I15.0 - Renovascular hypertension Subjective Principal diagnosis: ESRD on PD, Acute CHF/dyspnea Interval history: Pt was s/e this AM. She reported that her appetite was starting to improve and that she has more strength for walking to the restroom, and that her level of shortness of breath was described as "4" out of 10. She voiced having discomfort of the left lung base, that she thinks has been there for weeks. She did not affirm any problems with her PD fluid: i.e., she denied fibrin and blood , or abd pain with the PD exchanges. She voiced having a "twing" of urinary discomfort chronically, but denied flank pains, urgency or burning. Objective - Vital Signs Vital signs: Vital Signs Temp Pulse Resp BP Pulse Ox 03/24/18 04:53 98.1 F 78 16 93/53 94 03/23/18 23:56 98.3 F 89 17 111/73 96 03/23/18 20:04 98.1 F 91 17 97/67 90 03/23/18 16:11 98.6 F 83 20 106/68 96 03/23/18 11:22 98.7 F 95 23 98/61 96 Intake and Output 03/23/18 03/24/18 03/24/18 23:59 07:59 15:59 Other: Total Peritoneal Dialysis -80 -40 Output # Voids 1 Weight 65.7 kg 65.7 kg Patient Weight 03/24/18 23:59 Weight 65.7 kg - General Appearance General appearance: Present: well-developed, well-nourished, appears started age EENT: Present: ATNC, PERRL, mucous membranes moist Neck: Present: supple Additional Comments: left baslilar rhonchi Cardiology: Present: no edema, regular rate, regular rhythm, normal S1, normal S2 Additional Comments: PD catheter was nontender to palpation. Gastrointestinal: Present: no tenderness, no guarding Integumentary: Present: warm and dry Neurologic: Present: no focal deficit, no asterixis Musculoskeletal: Present: no erythema, no cyanosis, no clubbing Psychiatric: Present: depressed, cooperative - Lab 03/23/18 04:18 03/24/18 04:09 Most recent lab results Calcium 8.9 mg/dL (8.6-10.3) 03/24/18 04:09 Phosphorus 4.2 mg/dL (2.7-4.5) 03/24/18 04:09 Magnesium 1.4 mg/dL (1.6-2.6) L 03/24/18 04:09 Consult Discharge Plan - Plan Referrals: Fausto Gao DO [Primary Care Provider] -
[2018-03-24] MEDS ORDERED: amLODIPine 5 MG TABLET PO SCH (09:00)
[2018-03-24] MEDS: Isosorbide MONOnitrate (24 HR) 30 MG TAB.ER.24H PO SCH (09:16)
[2018-03-24] MEDS: Calcium Acetate 667 MG CAPSULE PO SCH ×2 (09:17→12:17)
[2018-03-24] MEDS: Furosemide 40 MG/4 ML VIAL IVP SCH (09:17)
[2018-03-24] MEDS: hydrALAZINE 25 MG TABLET PO SCH (09:18)
[2018-03-24] MEDS ORDERED: Magnesium Oxide 400 MG TABLET PO SCH (10:45)
--- NOTE | 2018-03-24 11:11 | Discharge Summary ---
- NOTES TO OUTPATIENT PROVIDER Notes to Outpatient Provider: Follow up with PCP in 2-3 days after discharge. Check BMP (hyperkalemia) and Mag (hypomagnesemia) at that time. Adjust lasix and magnesium oxide supplementation as needed. Follow up with nephrology as directed. Orders not resulted at time of discharge: Pending orders 03/22/18 15:44 EKG [ECG 12 lead ECG] [ECG] Routine 03/25/18 04:00 BMP [Basic Metabolic Panel] AM 0400 Date of Encounter: 03/24/18 Time of Encounter: 11:09 - Discharge Diagnosis (1) CHF (congestive heart failure) Priority: Primary Status: Acute Qualifiers: Heart failure type: diastolic Heart failure chronicity: acute Qualified Code(s): I50.31 - Acute diastolic (congestive) heart failure (2) Elevated troponin Priority: Secondary Status: Acute (3) Pulmonary edema Priority: Secondary Status: Acute (4) Renal failure Priority: Secondary Status: Chronic Qualifiers: Renal failure chronicity: acute on chronic Acute renal failure type: unspecified Chronic kidney disease stage: unspecified stage Qualified Code(s ): N17.9 - Acute kidney failure, unspecified; N18.9 - Chronic kidney disease, unspecified; N18.9 - Chronic kidney disease, unspecified (5) ESRD on peritoneal dialysis Priority: Secondary Status: Chronic (6) Hyperkalemia Priority: Secondary Status: Resolved (7) Advance directive discussed with patient Priority: Secondary Status: Acute (8) Hypomagnesemia Priority: Secondary Status: Acute Hospital course: Ms. Austin is a 72 year old white female admitted for CHF/pulmonary edema, elevated troponin, and hyperkalemia. She was admitted to nephrology floor with telemetry. Nephrology was consulted. It was thought that her pulmonary edema was likely related to volume overload from decompensated renal failure and uncontrolled blood pressure causing diastolic heart failure. She was started on diuresis. She was continued on peritoneal dialysis. Her elevated troponin was thought to be from ESRD, and it trended down and stabilized. She remained chest pain-free throughout hospitalization. Hyperkalemia improved and normalized on day of discharged. Nephrology recommended that she be discharged home on lasix 40 mg PO BID and magnesium oxide 400 mg PO BID (for hypomagnesemia. On day of discharge, she states that she is feeling back to her normal self and wants to go home. She denies any SOB, chest pain, or other issues. She will follow up with PCP in 2-3 days after discharge, at which time BMP and magnesium can be rechecked. Lasix and magnesium oxide doses can then be adjusted as needed. She will keep follow up with nephrology as directed. Patient has met maximum benefit of this hospitalization and will be discharged home in stable condition. Discharge discussed with: patient, nurse - Time Spent with Patient Total time spent providing and/or coordinating discharge services: Greater than 30 minutes - Discharge Medications Prescriptions: RX: Furosemide [Lasix] 40 mg PO BID 7 Days #14 tablet RX: Magnesium Oxide [Mag-Ox] 400 mg PO BID 7 Days #14 tablet Home Medications: RX: Clopidogrel [Plavix] 75 mg PO DAILY 06/15/16 [History] RX: Ergocalciferol (VITAMIN D2) [Vitamin D2 (50,000 UNIT)] 50,000 unit PO 3XW MDD mon, wed, fri 06/15/16 [History] RX: Isosorbide MONOnitrate (24 HR) [Imdur] 60 mg PO DAILY 06/15/16 [History] RX: Simvastatin [Zocor] 40 mg PO HS 06/15/16 [History] RX: amLODIPine [Norvasc] 10 mg PO BID 06/15/16 [History] RX: Calcitriol [Rocaltrol] 0.25 mcg PO DAILY 03/21/18 [History] RX: Calcium Acetate [Phos-LO] 2 cap PO TID 03/21/18 [History] RX: [place]-3/Dha/Epa/Fish Oil [Fish Oil 1,000 mg Softgel] 1 cap PO TID 03/21/18 [ History] RX: Sodium Bicarbonate 1,300 mg PO BID 03/21/18 [History] RX: hydrALAZINE [HydrALAZINE] 25 mg PO BID 03/21/18 [History] RX: Furosemide [Lasix] 40 mg PO BID 7 Days #14 tablet 03/24/18 [Rx] RX: Magnesium Oxide [Mag-Ox] 400 mg PO BID 7 Days #14 tablet 03/24/18 [Rx] Allergies/Adverse Reactions: 3 Allergy/AdvReac Type Severity Reaction Status Date / Time Iodinated Contrast- Oral and AdvReac Nausea Verified 03/21/18 14:52 IV Dye Date of admission: 03/21/18 22:13 Primary care physician: Mallika Li Consults: Nephrology Discharging clinician: Scott Mejia Anticipated date of discharge: 03/24/18 - Constitutional Vitals: Temp Pulse Resp BP Pulse Ox 98.1 F 78 16 93/53 94 03/24/18 04:53 03/24/18 04:53 03/24/18 04:53 03/24/18 04:53 03/24/18 04:53 General appearance: Present: cooperative, A&O X 3, pleasant, no acute distress, answers questions appropriately - Respiratory Respiratory exam: Present: CTAB. Absent: accessory muscle use, rales, rhonchi, wheezes Additional comments: Normal WOB - Cardiovascular Cardiovascular exam: Present: RRR, +S1, +S2. Absent: diastolic murmur, gallop, rubs, systolic murmur Additional comments: No BLE edema - GI/Abdominal GI/Abdominal exam: Present: normal bowel sounds, soft. Absent: distended, hepatomegaly, mass, splenomegaly, tenderness - Psychiatric Psychiatric exam: Present: normal affect, normal mood. Absent: agitated, anxious, depressed - Skin Skin exam: Present: dry, intact, warm. Absent: cyanosis, rash - Patient Status Disposition: Home, Self-Care Condition: Good Functional capacity at discharge: independent ambulation Overall status at discharge: patient is progressing back to baseline - Discharge Instructions Follow Up With: Fausto Gao DO [Primary Care Provider] - Additional Instructions: Follow up with PCP in 2-3 days after discharge. Check BMP (hyperkalemia) and Mag (hypomagnesemia) at that time. Adjust lasix and magnesium oxide supplementation as needed. Follow up with nephrology as directed. - Diet and Activity Activity: resume usual activities as tolerated Diet: low fat, low cholesterol, low salt diet, other (Cardiac)
[2018-03-24 11:21] VITALS: BP 109/68
[2018-03-24] MEDS ORDERED: Furosemide 40 MG TABLET PO SCH (17:00)
--- NOTE | 2018-03-25 05:13 | Electrocardiograph Report ---
[address] [place] [address] Test Date: 2018-03-21 Pat Name: Ksenia Austin Department: 103 Room: 2A43 Gender: F [employer] Poultry: SUZETTE : 1945 Requested By: [id number] Order Number: [id number] Reading MD: Timothy Quick Measurements Intervals [place] Rate: 99 P: 65 VA: 189 QRS: -9 QRSD: 86 T: -26 QT: 327 QTc: 383 Interpretive Statements SINUS RHYTHM ANTEROSEPTAL MYOCARDIAL INFARCTION, OF INDETERMINATE AGE Electronically Signed On 03-25-2018 5:11:16 EDT by Timothy Quick
== END 2018-03-24 13:21 | disposition home or self-care (01) | DRG 291 ==
LOC: EMEROO 14:32 → 2ANU 14:32
PROVIDERS: ADMIT Family Medicine; ATTEND Family Medicine

== ENCOUNTER 2019-03-12 15:45 | Inpatient (IN) ==
[~2019-03-12 15:45] MED LIST: *HR* Heparin 5,000 UNIT/ML VIAL IVP ONE; Aspirin 325 MG TABLET PO ONE; HEPARIN 25000 UNIT/250 ML IVC ONE; [UNRECOGNIZED DRUG - OTHER] IVC ONE
--- NOTE | 2019-03-12 16:21 | Emergency Department Note ---
Disposition Clinical Impression: Elevated troponin, Hyperkalemia, ESRD (end stage renal disease), Uremia, ST segment changes on electrocardiogram Disposition: Admitted As Inpatient Condition: Fair General Adult HPI - General Chief complaint: ED Weakness Stated complaint: decreased intake,"uremic" Time Seen by Provider: 03/12/19 16:20 Source: family Limitations: no limitations - History of Present Illness Pain Scale: 0 - Related Data Home Medications Medication Instructions Recorded Confirmed Clopidogrel [Plavix] 75 mg PO DAILY 06/15/16 03/21/18 Ergocalciferol (VITAMIN D2) 50,000 unit PO 3XW MDD mon, sat, 06/15/16 03/21/18 [Vitamin D2 (50,000 UNIT)] fri Isosorbide MONOnitrate (24 HR) 60 mg PO DAILY 06/15/16 03/21/18 [Imdur] Simvastatin [Zocor] 40 mg PO HS 06/15/16 03/21/18 amLODIPine [Norvasc] 10 mg PO BID 06/15/16 03/21/18 Calcitriol [Rocaltrol] 0.25 mcg PO DAILY 03/21/18 03/21/18 Calcium Acetate [Phos-LO] 2 cap PO TID 03/21/18 03/21/18 [place]-3/Dha/Epa/Fish Oil [Fish Oil 1 cap PO TID 03/21/18 03/21/18 1,000 mg Softgel] Sodium Bicarbonate 1,300 mg PO BID 03/21/18 03/21/18 hydrALAZINE [HydrALAZINE] 25 mg PO BID 03/21/18 03/21/18 Previous Rx's Medication Instructions Recorded Furosemide [Lasix] 40 mg PO BID 7 Days #14 tablet 03/24/18 Magnesium Oxide [Mag-Ox] 400 mg PO BID 7 Days #14 tablet 03/24/18 Allergies Allergy/AdvReac Type Severity Reaction Status Date / Time Iodinated Contrast- Oral and AdvReac Nausea Verified 03/21/18 14:52 IV Dye Past Medical History - Past Medical History Medical history: Reports: hyperlipidemia, hypertension, renal disease, valvular heart disease, other Surgical history: Reports: cholecystectomy, other Psychiatric history: Reports: no psych history - Social History Smoking Status: Never smoker Smokeless Tobacco Status: No Alcohol use: Reports: none Drug use: Reports: none Physical Exam - General Limitations: no limitations General appearance: anxious Course Vital Signs Temperature 97.9 F 03/12/19 16:07 Pulse Rate 102 03/12/19 16:07 Respiratory Rate 16 03/12/19 16:07 Blood Pressure 116/69 03/12/19 16:07 O2 Sat by Pulse Oximetry 92 03/12/19 16:07 Temperature 97.9 F 03/12/19 16:07 Pulse Rate 102 03/12/19 16:07 Respiratory Rate 21 03/12/19 23:33 Blood Pressure 149/70 03/12/19 23:33 O2 Sat by Pulse Oximetry 92 03/12/19 16:07 Oxygen Delivery Oxygen Delivery Nasal Cannula Medical Decision Making - Lab Data Result diagrams: 03/12/19 20:30 03/12/19 20:30 Lab Results 03/12/19 03/12/19 03/12/19 Range/Units 16:38 16:38 17:22 WBC 15.8 H (4.3-11.1) K/mcL RBC 3.46 L (3.82-4.97) M/mcL Hgb 10.1 L (11.5-15.4) g/dL Hct 32.4 L (35.3-44.9) % MCV 93.6 (83.0-100.0) fL MCH 29.2 (28.0-33.3) pg MCHC 31.2 L (31.6-35.5) g/dL RDW 14.9 H (11.5-14.5) % Plt Count 369 (140-400) K/mcL MPV 9.3 L (9.4-12.4) fL Immature Gran % 0.7 (0-4) % Seg Neutrophils % 92.8 % Lymphocytes % 3.0 % Monocytes % 3.4 % Eosinophils % 0.0 % Basophils % 0.1 % Neutrophils # 14.7 H (1.6-8.9) K/mcL Lymphocytes # 0.5 L (0.6-4.6) K/mcL Monocytes # 0.5 (0.0-1.3) K/mcL Eosinophils # 0.0 (0.0-0.6) K/mcL Basophils # 0.0 (0.0-0.2) K/mcL Sodium 132 L (136-145) mEq/L Potassium 6.1 H (3.5-5.1) mEq/L Chloride 106 (98-107) mEq/L Carbon Dioxide 7 L* (23-29) mEq/L BUN > 130 H (8-23) mg/dL Creatinine 11.99 H (0.60-1.20) mg/dL Est GFR ( Amer) 4 L (> 60) Est GFR (Non-Af Amer) 3 L (> 60) BUN/Creatinine Ratio TNP Glucose 93 (70-105) mg/dL Calculated Osmolality TNP Calcium 9.1 (8.6-10.3) mg/dL Phosphorus 11.0 H (2.7-4.5) mg/dL Magnesium 1.8 (1.6-2.6) mg/dL Total Bilirubin 0.3 (0.3-1.0) mg/dL AST 14 (13-39) Units/L ALT 7 (7-52) Units/L Alkaline Phosphatase 146 H (34-104) Units/L Troponin I 5.73 H* (< 0.04) ng/mL B-Natriuretic Peptide 2110 H (Less than 100) pg/mL Serum Total Protein 5.7 L (6.4-8.9) g/dL Albumin 3.0 L (3.5-5.7) g/dL Globulin 2.7 (2.4-3.5) g/dL Albumin/Globulin Ratio 1.1 (1.1-2.2) Critical Care Time Critical Care Time: Yes Total Critical Care Time: 45 Attestation: Critical care performed: Time is exclusive of separately billable procedures. Time includes: direct patient care, patient reassessment, coordination of patient care, interpretation of data (laboratory data, radiology data, and respiratory data), review of patient's medical records, medical consultation and documentation of patient care. Procedures included in critical care time: Procedures excluded from critical care time: Attestation Statement - Attestation Attestation: I examined this patient and my medical decision-making was reviewed with the Resident Physician. I agree with the documented findings, disposition and treatment plan as described except to the extent set forth below. Patient was sent to the ED by her [place] driver. There are concern for worsening uremia. Patient is supposed to be doing peritoneal dialysis home. Family is unsure when she did it last. Patient was sent in for admission and likely starting on hemodialysis. Patient denies being in any pain she denies being short of breath. She is in no acute distress on examination. Lungs sounds diminished. Abdomen soft. Patient is noted to have erythematous areas under her breasts consistent with [place]. Plan. Uremia evaluation. Patient with elevations in her high lateral leads. Inferior inversions. Changes on EKG or chronic but worse. Patient denied chest pain. Dyspnea is chronic. Critical troponin called. Patient reevaluated. Patient again denies chest pain. She denies any worsening dyspnea. Patient states she is ready to go home. We will discuss with cardiology. Dr Ca states not a sleep lab technologist candidate at this time. Placing central line as nursing staff was unable to get any ultrasound-guided IVs. Patient is on Plavix, however I felt the benefit of IV access at this time outweighs the risk. Central line placed. Xray is abnormal. Will CT. Line in hemiazygous vein. WIll pull and place in groin. Line placed in right groin by Dr. Luis with my supervision. Chest X-Ray 03/12/19 16:38 IMPRESSION: 1. Interval improvement in the degree of aeration at the left lung base in comparison with the prior study from 03/23/2018. 2. Persistent blunting of the left costophrenic angle, either on the basis of atelectasis, pleural effusion or an infectious/inflammatory process. This could be further evaluated via dedicated PA and lateral views of the chest when the patient is better able to tolerate imaging. 3. Stable cardiomegaly. D/ / Tim Sterling / Tim Sterling Interpreting Provider: Tim Sterling Plan. Basic workup with troponin and EKG. Electrolytes. Chest X-Ray 03/12/19 19:52 IMPRESSION: Atypical appearance of the line, of uncertain depth. The tip is favored to be within the brachiocephalic vein at the midline but indeterminate. Correlate with the functionality of the catheter. A repeat/follow-up chest x-ray without rotation is recommended, and reposition of the catheter should be considered, by withdrawing the catheter 15 cm, and reinserting the same depth. D/ / Albert Carey MD / Albert Carey MD Interpreting Provider: Albert Carey MD
--- NOTE | 2019-03-12 16:34 | Emergency Department Note ---
Addendum entered and electronically signed by Wilner Bray DO 03/12/19 23:07: Insert ECG: Patient has [address] elevation in lead 1 that is new. She has [address] elevation in lead aVL, V2 has elevation that is unchanged. There is new ST depression in the inferior leads as well as lateral leads. I discussed these ECG findings with both Dr. Ca and Dr. Rivas. Original Note: Disposition Clinical Impression: Elevated troponin, Hyperkalemia, ESRD (end stage renal disease), Uremia, ST segment changes on electrocardiogram Disposition: Admitted As Inpatient Condition: Serious General Adult HPI - General Chief complaint: ED Weakness Stated complaint: decreased intake,"uremic" Time Seen by Provider: 03/12/19 16:20 Source: family Limitations: no limitations Nursing Notes Reviewed: Yes Vital Signs Reviewed: Yes - History of Present Illness HPI Narrative: 73-year-old female presents emergency department with concern for increased shortness of breath and fatigue over the last few days. Family brought patient in. States that she is not doing her peritoneal dialysis as she should. N ephrology sent her in for concern for increasing uremia. Patient supposed to do. The dialysis 4 times a day, she has been doing this 3 times a day for an unknown amount of time. Patient states that she does not have time for that. Patient denies any cough, fever, congestion, abdominal pain. She does report some increased abdominal swelling, but no lower extremity edema. Family reports that the patient is fluid overloaded, she never has lower extremity edema. Patient still makes urine, has no dysuria, urinary frequency or urgency. Pain Scale: 0 - Related Data Home Medications Medication Instructions Recorded Confirmed Clopidogrel [Plavix] 75 mg PO DAILY 06/15/16 03/21/18 Ergocalciferol (VITAMIN D2) 50,000 unit PO 3XW MDD mon, wed, 06/15/16 03/21/18 [Vitamin D2 (50,000 UNIT)] fri Isosorbide MONOnitrate (24 HR) 60 mg PO DAILY 06/15/16 03/21/18 [Imdur] Simvastatin [Zocor] 40 mg PO HS 06/15/16 03/21/18 amLODIPine [Norvasc] 10 mg PO BID 06/15/16 03/21/18 Calcitriol [Rocaltrol] 0.25 mcg PO DAILY 03/21/18 03/21/18 Calcium Acetate [Phos-LO] 2 cap PO TID 03/21/18 03/21/18 [place]-3/Dha/Epa/Fish Oil [Fish Oil 1 cap PO TID 03/21/18 03/21/18 1,000 mg Softgel] Sodium Bicarbonate 1,300 mg PO BID 03/21/18 03/21/18 hydrALAZINE [HydrALAZINE] 25 mg PO BID 03/21/18 03/21/18 Previous Rx's Medication Instructions Recorded Furosemide [Lasix] 40 mg PO BID 7 Days #14 tablet 03/24/18 Magnesium Oxide [Mag-Ox] 400 mg PO BID 7 Days #14 tablet 03/24/18 Allergies Allergy/AdvReac Type Severity Reaction Status Date / Time Iodinated Contrast- Oral and AdvReac Nausea Verified 03/21/18 14:52 IV Dye All systems ED: reviewed and negative except as stated. Review of Systems: As Per HPI Constitutional: Denies: fever Cardiovascular: Denies: chest pain Respiratory: Reports: dyspnea Gastrointestinal: Denies: nausea, vomiting Genitourinary: Denies: dysuria Neurological: Denies: headache Past Medical History - Past Medical History Medical history: Reports: hyperlipidemia, hypertension, renal disease, valvular heart disease, other Surgical history: Reports: cholecystectomy, other Psychiatric history: Reports: no psych history - Social History Smoking Status: Never smoker Smokeless Tobacco Status: No Alcohol use: Reports: none Drug use: Reports: none Physical Exam - General Limitations: no limitations General appearance: anxious - Head Head exam: normocephalic - Eye Eye exam: Present: EOMI - ENT ENT exam: mucous membranes moist - Neck Neck exam: Present: trachea midline - Chest Chest inspection: Present: symmetric chest wall rise - Respiratory Respiratory exam: Present: normal lung sounds bilaterally. Absent: respiratory distress, accessory muscle use - Cardiovascular Cardiovascular exam: Present: normal rhythm, tachycardia - Abdominal Exam Abdominal exam: Present: soft, Non-Tender. Absent: distention, guarding, rebound, rigidity - Extremities Exam Extremities exam: Present: full ROM - Back Exam Back exam: Present: full ROM - Neurological Exam Neurological exam: Present: alert, oriented X3 - Psychiatric Psychiatric exam: Present: normal affect, normal mood - Skin Skin exam: Present: warm, dry, intact, normal color. Absent: rash Course Vital Signs Temperature 97.9 F 0411/19 16:07 Pulse Rate 102 03/12/19 16:07 Respiratory Rate 16 03/12/19 16:07 Blood Pressure 116/69 03/12/19 16:07 O2 Sat by Pulse Oximetry 92 03/12/19 16:07 Temperature 97.9 F 03/12/19 16:07 Pulse Rate 102 03/12/19 16:07 Respiratory Rate 16 03/12/19 16:07 Blood Pressure 116/69 03/12/19 16:07 O2 Sat by Pulse Oximetry 92 03/12/19 16:07 Oxygen Delivery Oxygen Delivery Room Air Procedures - Central Line Placement Left IJ Central Line Inserted*: Yes Central Line Catheter Replacement*: Yes Central Line Insertion: emergent Consent Obtained: written consent Procedural Pause: verify patient name and date of , timeout performed per policy, beth and assess the site, assemble equipment and verify supplies, perform hand hygiene Patient Placed on Monitor/Pulse Ox: Yes During the Procedure: clinician is wearing sterile gloves, cap, mask,& gown during insertion, sterile field and sterile technique are maintained, patient's face is covered with drape or mask and wearing a cap, everyone in room is wearing a mask Central Line Prep: Chlorhexidine scrub Local Anesthetic: lidocaine 1% Ultrasound Used for Placement: Yes Central Line Lumen Inserted: triple Post Procedure: sutured in place, good blood return, all ports aspirated, flushed, capped, sterile dressing applied, guide wire removed and visualized Post Procedure X-Ray: other (Concern on chest x-ray that line was not in good position. We obtained chest CT that revealed that it was in a vein, but not a central vein. Line was removed. ) Name of Clinician Inserting Central Line: Adilene Morfin DO, Wilner Bray DO Clinician Assisting/Completing Checklist: Maren Fletcher DO Right Femoral Central Line Inserted*: Yes Central Line Catheter Replacement*: Yes Central Line Insertion: emergent Consent Obtained: written consent Procedural Pause: verify patient name and date of , timeout performed per policy, beth and assess the site, assemble equipment and verify supplies, perform hand hygiene Patient Placed on Monitor/Pulse Ox: Yes During the Procedure: clinician is wearing sterile gloves, cap, mask,& gown during insertion, sterile field and sterile technique are maintained Central Line Prep: Chlorhexidine scrub Ultrasound Used for Placement: Yes Central Line Lumen Inserted: triple Post Procedure: sutured in place, good blood return, all ports aspirated, flushed, capped, sterile dressing applied, guide wire removed and visualized Post Procedure X-Ray: tip of catheter in good position, no pneumothorax seen Patient Tolerated Procedure: well, no complications Name of Clinician Inserting Central Line: Wilner Bray D.O. Clinician Assisting/Completing Checklist: Maren Fletcher D.O. Medical Decision Making - [facility] Narrative Medical decision making narrative: 73-year-old female presents to the emergency department with concern from nephrology. Patient initially was hemodynamically stable not in acute distress. We did obtain labs, EKG, troponin. Electrocardiogram that we obtained revealed concern for elevation of lead 1, aVL, V2. Patient chronically has elevations in aVL and V2, however, he ones in lead 1 or new from previous. Patient also had ST depressions in the inferior leads that are new as well. Q waves were also noted. Spoke with both her congressional assistant and pocketed spring machine operator. He recommended both aspirin and heparin, but no heart catheterization at this time as patient did not have chest pain. I spoke to patient and family members again after her troponin came back elevated. They stated that she has not reported any symptoms of chest pain. Patient had elevated potassium of 6.1. I spoke with Dr. Hamilton, the [employer] portal consultant. He was okay with us providing an amp of sodium bicarbonate, albuterol, Kayexalate, and calcium gluconate. He also wanted an order for interventional radiology to place a hemodialysis catheter tomorrow. Patient had difficulty with vascular access. We placed a left internal jugular central venous catheter under ultrasound. There was reported atypical appearance of the central line via chest x-ray. We obtained a CT of the chest without contrast. It was reported to be in the azygous vein. Per radiology, this vein is not typically located in this anatomical space. There was also concern from radiology about structures within the aorta. Patient reported having an aortic dissection in the past that would explain this abnormality. Spoke with family simply at bedside regarding this. They agreed. Patient chest pain-free, hemodynamically stable, and not in any acute distress at time of admission from the emergency department. Chest X-Ray 03/12/19 19:52 IMPRESSION: Atypical appearance of the line, of uncertain depth. The tip is favored to be within the brachiocephalic vein at the midline but indeterminate. Correlate with the functionality of the catheter. A repeat/follow-up chest x-ray without rotation is recommended, and reposition of the catheter should be considered, by withdrawing the catheter 15 cm, and reinserting the same depth. D/ / Albert Carey MD / Albert Carey MD Interpreting Provider: Albert Carey MD - Lab Data Result diagrams: 03/12/19 20:30 03/12/19 20:30 Lab Results 03/12/19 03/12/19 03/12/19 Range/Units 16:38 16:38 17:22 WBC 15.8 H (4.3-11.1) K/mcL RBC 3.46 L (3.82-4.97) M/mcL Hgb 10.1 L (11.5-15.4) g/dL Hct 32.4 L (35.3-44.9) % MCV 93.6 (83.0-100.0) fL MCH 29.2 (28.0-33.3) pg MCHC 31.2 L (31.6-35.5) g/dL RDW 14.9 H (11.5-14.5) % Plt Count 369 (140-400) K/mcL MPV 9.3 L (9.4-12.4) fL Immature Gran % 0.7 (0-4) % Seg Neutrophils % 92.8 % Lymphocytes % 3.0 % Monocytes % 3.4 % Eosinophils % 0.0 % Basophils % 0.1 % Neutrophils # 14.7 H (1.6-8.9) K/mcL Lymphocytes # 0.5 L (0.6-4.6) K/mcL Monocytes # 0.5 (0.0-1.3) K/mcL Eosinophils # 0.0 (0.0-0.6) K/mcL Basophils # 0.0 (0.0-0.2) K/mcL Sodium 132 L (136-145) mEq/L Potassium 6.1 H (3.5-5.1) mEq/L Chloride 106 (98-107) mEq/L Carbon Dioxide 7 L* (23-29) mEq/L BUN > 130 H (8-23) mg/dL Creatinine 11.99 H (0.60-1.20) mg/dL Est GFR ( Amer) 4 L (> 60) Est GFR (Non-Af Amer) 3 L (> 60) BUN/Creatinine Ratio TNP Glucose 93 (70-105) mg/dL Calculated Osmolality TNP Calcium 9.1 (8.6-10.3) mg/dL Phosphorus 11.0 H (2.7-4.5) mg/dL Magnesium 1.8 (1.6-2.6) mg/dL Total Bilirubin 0.3 (0.3-1.0) mg/dL AST 14 (13-39) Units/L ALT 7 (7-52) Units/L Alkaline Phosphatase 146 H (34-104) Units/L Troponin I 5.73 H* (< 0.04) ng/mL B-Natriuretic Peptide 2110 H (Less than 100) pg/mL Serum Total Protein 5.7 L (6.4-8.9) g/dL Albumin 3.0 L (3.5-5.7) g/dL Globulin 2.7 (2.4-3.5) g/dL Albumin/Globulin Ratio 1.1 (1.1-2.2) - EKG Data EKG #1 EKG attestation: Yes I reviewed and interpreted this EKG.
[2019-03-12] MEDS ORDERED: Nystatin POWDER 30 GM BOTTLE TP STA (17:22)
[2019-03-12 17:41] LABS: Basophils % 0.1 %; Hematocrit 32.4 % (35.3-44.9); Hemoglobin 10.1 g/dL (11.5-15.4); Immature Granulocytes % 0.7 % (0-4); Lymphocytes # 0.5 K/mcL (0.6-4.6); Mean Corpuscular HGB Conc 31.2 g/dL (31.6-35.5); Mean Corpuscular Hemoglobin 29.2 pg (28.0-33.3); Mean Corpuscular Volume 93.6 fL (83.0-100.0); Mean Platelet Volume 9.3 fL (9.4-12.4); Monocytes # 0.5 K/mcL (0.0-1.3); Monocytes % 3.4 %; Neutrophils # 14.7 K/mcL (1.6-8.9); Platelet Count 369 K/mcL (140-400); Red Blood Count 3.46 M/mcL (3.82-4.97); Red Cell Distribution Width 14.9 % (11.5-14.5); Segmented Neutrophils % 92.8 %
[2019-03-12 18:02] LABS: Alanine Aminotransferase 7 Units/L (7-52); Albumin/Globulin Ratio 1.1 (1.1-2.2); Alkaline Phosphatase 146 Units/L (34-104); Aspartate Amino Transferase 14 Units/L (13-39); Bilirubin,Total 0.3 mg/dL (0.3-1.0); Blood Urea Nitrogen > 130 mg/dL (8-23); Calcium 9.1 mg/dL (8.6-10.3); Carbon Dioxide 7 mEq/L (23-29); Chloride 106 mEq/L (98-107); Globulin 2.7 g/dL (2.4-3.5); Glucose 93 mg/dL (70-105); Magnesium 1.8 mg/dL (1.6-2.6); Potassium 6.1 mEq/L (3.5-5.1); Sodium 132 mEq/L (136-145); Total Protein 5.7 g/dL (6.4-8.9); Troponin I 5.73 ng/mL (< 0.04); eGFR For Non-African Americans 3 (> 60)
[2019-03-12] MEDS ORDERED: Albuterol 2.5 MG/3 ML NEBULIZER IH ONE ×2 (18:10→22:00)
[2019-03-12] MEDS ORDERED: Sodium Bicarbonate 50 MEQ/50 ML VIAL IVP ONE (18:10)
[2019-03-12] MEDS ORDERED: Aspirin 325 MG TABLET PO ONE (18:18)
[2019-03-12] MEDS ORDERED: *HR* Heparin 5,000 UNIT/ML VIAL IVP ONE (20:00)
[2019-03-12] MEDS ORDERED: *HR* Heparin 5,000 UNIT/ML VIAL IVP PRN (20:00)
[2019-03-12 20:48] LABS: Hematocrit 29.7 % (35.3-44.9); Hemoglobin 9.2 g/dL (11.5-15.4); Mean Corpuscular Hemoglobin 29.6 pg (28.0-33.3); Mean Corpuscular Volume 95.5 fL (83.0-100.0); Mean Platelet Volume 9.4 fL (9.4-12.4); Platelet Count 348 K/mcL (140-400); Red Blood Count 3.11 M/mcL (3.82-4.97)
[2019-03-12 20:58] LABS: INR 1.2
[2019-03-12 21:00] LABS: VBG HCO3 6 mEq/L (21-27); VBG PCO2 22 mmHg (41-51); VBG PH 7.02 pH Units (7.32-7.42); VBG PO2 141 mmHg (25-50)
[2019-03-12 21:10] LABS: Potassium 6.3 mEq/L (3.5-5.1)
[2019-03-12 21:15] LABS: Troponin I 5.47 ng/mL (< 0.04)
[2019-03-12] MEDS ORDERED: *HR* Dextrose 50 % in Water (Syg) 50 ML SYRINGE IVP ONE (21:18)
[2019-03-12] MEDS ORDERED: Insulin Human Regular 10 UNIT in 0.9 % Sodium Chloride 10 ML IV ONE (21:18)
[2019-03-12] MEDS ORDERED: Furosemide 40 MG/4 ML VIAL IVP ONE (21:19)
[2019-03-12] MEDS ORDERED: Sodium Bicarbonate 150 MEQ in D5% in Water 1,000 ML IVC SCH (21:30)
[2019-03-12] MEDS ORDERED: Perflutren Lipid Microsphere 1.3 ML in 0.9 % Sodium Chloride 8.7 ML IVP ONE (22:22)
[2019-03-12] MEDS ORDERED: *HR* Heparin 5,000 UNIT/ML VIAL ONE (22:40)
[2019-03-12] MEDS ORDERED: Heparin 25,000 UNIT/250 ML D5W 25,000 UNIT/250 ML IV.SOLN IVC ONE (22:40)
[2019-03-12] MEDS ORDERED: Aspirin 325 MG TABLET ONE (22:40)
[2019-03-12] MEDS: Heparin 25,000 UNIT/250 ML D5W 25,000 UNIT/250 ML IV.SOLN IVC SCH (22:46)
[2019-03-13 00:47] LABS: Blood Urea Nitrogen > 130 mg/dL (8-23); Carbon Dioxide 6 mEq/L (23-29); Chloride 106 mEq/L (98-107); Glucose 110 mg/dL (70-105); Sodium 134 mEq/L (136-145); eGFR For Non-African Americans 3 (> 60)
--- NOTE | 2019-03-13 01:10 | Internal Med History&Physical ---
Date of Encounter: 03/13/19 Time of Encounter: 01:07 Internal Medicine - H&P: HPI Chief complaint: weakness Admitted From: Home Plans for Post Hospital Care: Home History of present illness: Ksenia Austin is a 73 year old woman with a history of aortic dissection with resultant advanced chronic kidney disease leading to peritoneal dialysis for the past 1 year, hypertension and heart failure with reduced ejection fraction who has been rather asthenic over the past few weeks with generalized malaise, fatigue and anorexia. As per family members she has been non-adherent to her home PD sessions and does them infrequently. Her chandelier maker was concerned that she may be becoming uremic and would need an alternative form of CHILDREN'S PROGRAM COORDINATOR and therefore recommended for evaluation. In the ER her labs revealed leuko cytosis, high anion gap metabolic acidosis, hyperkalemia and a significant troponin elevation. Her EKG did reveal anteroseptal lead ST elevations with lateral lead ST depressions which were discussed with the cardiology service. She denies chest pain or dyspnea however. She was started on heparin gtt and also given temporizing measures for hyperkalemia. She is admitted for further care. Family history reviewed and found non-contributory. Vitals: Reviewed General: Asthenic and fatigued appearing elderly woman Skin: Dry, warm HEENT: Dry mucous membranes. (+) conjunctivae pallor. Neck: No lymphadenopathy. No JVD. No carotid bruits. No palpable thyroid. Chest: Normal thoracic expansion. Normal breath sounds. Clear to auscultation. Heart: Normal S1 & S2; rhythmic. No rubs or murmurs. Abdomen: Non-distended, soft and non-tender to palpation. No peritoneal reaction. Extremities: No clubbing, cyanosis. Trace edema. No calf tenderness. Normal distal pulses. Neurological: Awake, alert and oriented to person, place and time. No focal deficits. Psych: Affect flat. Assessment/Plan Uremic syndrome: based on clinical presentation and findings of azotemia secondary to non-adherence to her CHILDREN'S PROGRAM COORDINATOR regimen. -Nephrology & interventional radiology consults placed as she will need an alternate access to begin regular hemodialysis. We discussed at length the current high risk state she is in with inadequate CHILDREN'S PROGRAM COORDINATOR. Hyperkalemia: Secondary to ESRD. -Calcium gluconate administered due to the EKG changes noted. -Will give 2 doses of kayexalate but in the interim administer high dose albuterol nebulizer, dextrose/insulin and furosemide. Unfortunately none of these measures were started in the ER and there was a significant delay in pharmacologic initiation. Hyperphosphatemia: Secondary to ESRD. -Will start high dose sevelamer. High anion gap metabolic acidosis: -Will start sodium bicarb drip to be given overnight. Troponin elevation: My concern is that it is more renal in etiology rather than cardiac given her lack of clinical symptoms suggesting otherwise although her EKG changes are rather notable and renal patients can have accelerated CAD. -Will give ASA loading dose and start heparin drip for now. -Obtain TTE for evaluation and cardiology consultation. Leukocytosis: No signs of infection present at this time. -Will order a UA for evaluation. Anemia: Likely of chronic disease. -Will check iron studies and start supplementation as needed. Past Med Surg Social Fam HX - Past Medical History Medical history: hyperlipidemia, hypertension, renal disease, valvular heart disease, other Psychiatric history: no psych history - Past Surgical History Surgical History: cholecystectomy, other Additional surgical history: 13 years ago aortic heart surgery - Social History Smoking Status: Never smoker Smokeless Tobacco Status: No Alcohol use: none Drug use: none - Family History Father Hx Family Respiratory Disorders: Yes Sister Hx Family Respiratory Disorders: Yes Internal Medicine - H&P: Meds Clopidogrel [Plavix] 75 mg PO DAILY 06/15/16 [History] Ergocalciferol (VITAMIN D2) [Vitamin D2 (50,000 UNIT)] 50,000 unit PO 3XW MDD mon, wed, fri 06/15/16 [History] Isosorbide MONOnitrate (24 HR) [Imdur] 60 mg PO DAILY 06/15/16 [History] Simvastatin [Zocor] 40 mg PO HS 06/15/16 [History] amLODIPine [Norvasc] 10 mg PO BID 06/15/16 [History] Calcitriol [Rocaltrol] 0.25 mcg PO DAILY 03/21/18 [History] Calcium Acetate [Phos-LO] 2 cap PO TID 03/21/18 [History] [place]-3/Dha/Epa/Fish Oil [Fish Oil 1,000 mg Softgel] 1 cap PO TID 03/21/18 [History] Sodium Bicarbonate 1,300 mg PO BID 03/21/18 [History] hydrALAZINE [HydrALAZINE] 25 mg PO BID 03/21/18 [History] Furosemide [Lasix] 40 mg PO BID 7 Days #14 tablet 03/24/18 [Rx] Magnesium Oxide [Mag-Ox] 400 mg PO BID 7 Days #14 tablet 03/24/18 [Rx] Allergy/AdvReac Type Severity Reaction Status Date / Time Iodinated Contrast- Oral and AdvReac Nausea Verified 03/21/18 14:52 IV Dye All Systems PM: A 10-system review of systems was performed and is negative for pertinent findings except as documented above in the HPI. - Constitutional Vitals: Temp Pulse Resp BP Pulse Ox 97.7 F 92 25 136/83 100 03/13/19 00:31 03/13/19 00:31 03/13/19 00:31 03/13/19 00:31 03/13/19 00:31 Exam: . Internal Med - H&P Results - Labs CBC & Chem 7: 03/12/19 20:30 03/13/19 00:13 Labs: Short CBC 03/12/19 03/12/19 Range/Units 17:22 20:30 WBC 15.8 H 14.8 H (4.3-11.1) K/mcL Hgb 10.1 L 9.2 L (11.5-15.4) g/dL Hct 32.4 L 29.7 L (35.3-44.9) % Plt Count 369 348 (140-400) K/mcL Neutrophils # 14.7 H (1.6-8.9) K/mcL BMP 03/12/19 03/12/19 03/13/19 16:38 20:30 00:13 Sodium 132 L 134 L Potassium 6.1 H 6.3 H 6.0 H Chloride 106 106 Carbon Dioxide 7 L* 6 L* BUN > 130 H > 130 H Creatinine 11.99 H 12.07 H Glucose 93 110 H Calcium 9.1 9.0 Cardiac Enzymes 03/12/19 03/12/19 Range/Units 16:38 20:30 Troponin I 5.73 H* 5.47 H* (< 0.04) ng/mL Liver Function 03/12/19 Range/Units 16:38 Total Bilirubin 0.3 (0.3-1.0) mg/dL AST 14 (13-39) Units/L ALT 7 (7-52) Units/L Alkaline Phosphatase 146 H (34-104) Units/L Albumin 3.0 L (3.5-5.7) g/dL - ABG Interpretation ABG results: 03/12/19 20:47 VBG pH 7.02 L* VBG pCO2 22 L VBG pO2 141 H VBG HCO3 6 L - Impressions ITS Impressions Chest X-Ray 03/12/19 16:38 IMPRESSION: 1. Interval improvement in the degree of aeration at the left lung base in comparison with the prior study from 03/23/2018. 2. Persistent blunting of the left costophrenic angle, either on the basis of atelectasis, pleural effusion or an infectious/inflammatory process. This could be further evaluated via dedicated PA and lateral views of the chest when the patient is better able to tolerate imaging. 3. Stable cardiomegaly. D/ / Tim Sterling / Tim Sterling Interpreting Provider: Tim Sterling Chest X-Ray 03/12/19 19:52 IMPRESSION: Atypical appearance of the line, of uncertain depth. The tip is favored to be within the brachiocephalic vein at the midline but indeterminate. Correlate with the functionality of the catheter. A repeat/follow-up chest x-ray without rotation is recommended, and reposition of the catheter should be considered, by withdrawing the catheter 15 cm, and reinserting the same depth. D/ / Albert Carey MD / Albert Carey MD Interpreting Provider: Albert Carey MD Chest CT 03/12/19 20:38 IMPRESSION: 1. The left internal jugular venous catheter courses into the accessory hemiazygous vein. This has already been removed. 2. Unusual contour of the ascending aorta and aortic arch, possibly postoperative. Correlation with surgical history is recommended. A repeat study with intravenous contrast may also be of benefit. Critical results were called by Dr. Abel Garcia MD to Wilner Bray on 03/12/2019 at 22:48. D/ / Abel Garcia MD / Abel Garcia MD Interpreting Provider: Abel Garcia MD X-Ray 03/12/19 22:00 IMPRESSION: Right femoral vascular catheter placement. D/ / Jaime Blankenship MD / Jaime Blankenship MD Interpreting Provider: Jaime Blankenship MD - Time Spent With Patient Total time spent is greater than 50% in coordination of care (as documented) at patient's floor/unit and/or counseling patient: Greater than 35 minutes
[2019-03-13] MEDS ORDERED: Sodium Bicarbonate 50 MEQ/50 ML VIAL IVP ONE (01:45)
[2019-03-13 04:49] LABS: Basophils % 0.2 %; Eosinophils % 0.1 %; Hematocrit 27.6 % (35.3-44.9); Hemoglobin 8.7 g/dL (11.5-15.4); Lymphocytes # 0.5 K/mcL (0.6-4.6); Lymphocytes % 3.4 %; Mean Corpuscular HGB Conc 31.5 g/dL (31.6-35.5); Mean Corpuscular Hemoglobin 29.7 pg (28.0-33.3); Mean Corpuscular Volume 94.2 fL (83.0-100.0); Mean Platelet Volume 9.6 fL (9.4-12.4); Monocytes # 0.8 K/mcL (0.0-1.3); Monocytes % 5.4 %; Platelet Count 349 K/mcL (140-400); Red Blood Count 2.93 M/mcL (3.82-4.97); Red Cell Distribution Width 14.7 % (11.5-14.5); Segmented Neutrophils % 89.9 %
[2019-03-13] MEDS: Ondansetron 4 MG/2 ML VIAL IVP PRN (05:06)
[2019-03-13 05:09] LABS: % Iron Saturation 74 % (15-50); Blood Urea Nitrogen > 130 mg/dL (8-23); Calcium 8.9 mg/dL (8.6-10.3); Carbon Dioxide 8 mEq/L (23-29); Chloride 105 mEq/L (98-107); Glucose 96 mg/dL (70-105); Iron 82 mcg/dL (50-170); Magnesium 1.8 mg/dL (1.6-2.6); Phosphorous 10.8 mg/dL (2.7-4.5); Sodium 139 mEq/L (136-145); Transferrin 79 mg/dL (203-362); eGFR For Non-African Americans 3 (> 60)
[2019-03-13 05:34] LABS: Ferritin > 1500 ng/mL (10-120)
[2019-03-13] MEDS ORDERED: 0.9 % Sodium Chloride 250 ML IVC PRN (07:16)
[2019-03-13] MEDS ORDERED: 0.9 % Sodium Chloride 1,000 ML PRIME SCH (07:30)
[2019-03-13] MEDS ORDERED: Calcium Acetate 667 MG CAPSULE PO SCH (09:00)
[2019-03-13] MEDS ORDERED: amLODIPine 5 MG TABLET PO SCH (09:00)
[2019-03-13] MEDS ORDERED: Furosemide 40 MG TABLET PO SCH (09:00)
[2019-03-13] MEDS ORDERED: (Fish Oil 1,000 Mg Softgel) PO SCH (09:00)
--- NOTE | 2019-03-13 11:24 | Nephrology Consult Note ---
Date of Encounter: 03/13/19 Time of Encounter: 07:30 Assessment and Plan (1) ESRD (end stage renal disease) Current Visit: Yes Status: Chronic 2 months ago as documented in the [facility] EHR, I had strongly recommended she be changed from PD to in-center HD; she had refused and then a family meeting was arranged with Dr. Lai and the pt continued on PD, albeit with continued non-adherence. Over the last few weeks, without adequately performing her PD at home, she has become very uremic. She will need to transition to HD going forward, and she has now consented for HD. I've made her NPO this Saturday morning and consulted with as well as and spoke with IR to request a Permcath. She will have her first HD today, which is highly medically necessary due to her uremic condition. Next HD will be planned for tomorrow. She will need a slow increase in the Qb and Qd flows with back to back dialysis to avoid dialysis disequilibrium. She will need an outpt referral to Dr. Lock for PD catheter removal after this hospitalization. She is very high risk, and though converting her to dialysis is necessary at this time, she still remains at high risk for potentially expiring. Thank you for consulting the [facility]. (2) Hyperkalemia Current Visit: Yes Status: Acute (3) Uremia Current Visit: Yes Status: Acute (4) Hypertension Current Visit: No Status: Chronic Qualifiers: Hypertension type: renovascular hypertension Qualified Code(s): I15.0 - Renovascular hypertension History of Present Illness - Reason for Consult Consult date: 03/13/19 end stage renal disease, hyperkalemia Requesting physician: Wilner Bray - Chief Complaint Uremia, PD noncompliance and need to transition to HD - History of Present Illness 73-year-old female with a past medical history of ESRD previously on PVD who presented with progressive fatigue, nausea and vomiting, and reported ongoing noncompliance with PD. She had previously informed me that she would "rather " than do hemodialysis. Today she reports a change of heart and wants hemodialysis. I spoke to the floor nurse regarding this issue very early this morning. Past Med Surg Social Fam HX - Past Medical History Medical history: hyperlipidemia, hypertension, renal disease, valvular heart disease, other Psychiatric history: no psych history - Past Surgical History Surgical History: cholecystectomy, other Additional surgical history: 13 years ago aortic heart surgery - Social History Smoking Status: Never smoker Smokeless Tobacco Status: No Alcohol use: none Drug use: none - Family History Father Hx Family Respiratory Disorders: Yes Sister Hx Family Respiratory Disorders: Yes Medications and Allergies Clopidogrel [Plavix] 75 mg PO DAILY 06/15/16 [History] Ergocalciferol (VITAMIN D2) [Vitamin D2 (50,000 UNIT)] 50,000 unit PO 3XW MDD mon, wed, fri 06/15/16 [History] Isosorbide MONOnitrate (24 HR) [Imdur] 60 mg PO DAILY 06/15/16 [History] Simvastatin [Zocor] 40 mg PO HS 06/15/16 [History] amLODIPine [Norvasc] 10 mg PO BID 06/15/16 [History] Calcitriol [Rocaltrol] 0.25 mcg PO DAILY 03/21/18 [History] Calcium Acetate [Phos-LO] 2 cap PO TID 03/21/18 [History] [place]-3/Dha/Epa/Fish Oil [Fish Oil 1,000 mg Softgel] 1 cap PO TID 03/21/18 [History] Sodium Bicarbonate 1,300 mg PO BID 03/21/18 [History] hydrALAZINE [HydrALAZINE] 25 mg PO BID 03/21/18 [History] Furosemide [Lasix] 40 mg PO BID 7 Days #14 tablet 03/24/18 [Rx] Magnesium Oxide [Mag-Ox] 400 mg PO BID 7 Days #14 tablet 03/24/18 [Rx] Allergy/AdvReac Type Severity Reaction Status Date / Time Iodinated Contrast- Oral and AdvReac Nausea Verified 03/21/18 14:52 IV Dye Review of Systems All Systems: reviewed and no additional remarkable complaints except as stated Exam - Vital Signs Vital signs: Initial Vital Signs Temp Pulse Resp BP Pulse Ox 97.9 F 102 16 116/69 92 03/12/19 16:07 03/12/19 16:07 03/12/19 16:07 03/12/19 16:07 03/12/19 16:07 Vital Signs - Last 8 Hours Temp Pulse Resp BP Pulse Ox 03/13/19 06:39 98.1 F 89 22 139/83 100 Intake and Output 03/12/19 03/13/19 03/13/19 23:59 07:59 15:59 Intake Total 39 / 39 0 / 0 Output Total 50 / 50 Balance - / -11 0 / 0 Intake: IV Fluids / 39 Heparin 25,000 UNIT/250 ML D5W / 39 25,000 unit In 250 ml @ 12 UNIT /KG/HR 6.389 mls/hr IVC .Q24H [facility] Rx#:[id number] Oral 0 / 0 0 / 0 Output: Urine 0 / 0 Emesis 50 / 50 Other: Meal NPO Stool Size Moderate Stool Consistency loose liquid Stool Characteristics Normal for Patient Stool Color Brown # Bowel Movements 2 Weight 53.24 kg 56.9 kg Patient Weight 03/13/19 23:59 Weight 56.9 kg - General Appearance General appearance: moderate distress, fatigue, frail EENT: ATNC, mucous membranes moist Neck: supple Respiratory: course breath sounds Cardiology: edema, regular rate, normal S1, normal S2 - Dialysis Access Additional Comments: LLQ PD catheter: exit site was not erythematous appearing Gastrointestinal: normoactive bowel sounds, no tenderness Integumentary: warm and dry Neurologic: alert and oriented x3 (but very fatigued and slowed conversation) Musculoskeletal: no cyanosis Psychiatric: mood/affect appropriate, cooperative Results - Lab Results 03/13/19 03:55 03/13/19 03:55 Most recent lab results Calcium 8.9 mg/dL (8.6-10.3) 03/13/19 03:55 Phosphorus 10.8 mg/dL (2.7-4.5) H 03/13/19 03:55 Magnesium 1.8 mg/dL (1.6-2.6) 03/13/19 03:55 Consult Discharge Plan - Plan Referrals: Fausto Gao DO [Primary Care Provider] -
[2019-03-13] MEDS: Isosorbide MONOnitrate (24 HR) 30 MG TAB.ER.24H PO SCH (11:31)
[2019-03-13] MEDS: Furosemide 40 MG TABLET PO SCH ×2 (11:31→18:02)
[2019-03-13] MEDS: hydrALAZINE 25 MG TABLET PO SCH ×2 (11:31→21:33)
[2019-03-13] MEDS: Folic Acid 1 MG TABLET PO SCH (11:31)
[2019-03-13 11:35] LABS: Hepatitis B Surface Antibody < 3.10 mIU/mL
[2019-03-13 11:46] LABS: Hepatitis B Surface Antigen Nonreactive (Nonreactive)
[2019-03-13] MEDS ORDERED: Heparin 1,000 UNITS/500 mL 500 ML ONE (15:32)
--- NOTE | 2019-03-13 15:35 | IR Procedure Note ---
Date of procedure: 03/13/19 Consent Obtained: Written consent Timeout: Correct patient and procedure verified, Correct site verified, Time out performed, Skin prep completed Local anesthetic: Lidocaine 1% Indications: needs dialysis Procedure Performed: right IJ tempcath Was there an insurance claims assistant present: Lilia Hot Pipe Gauger: Luis Barbosa Site/Technique: right IJ Results/Findings: 16 cm long tempcath Estimated blood loss (cc): 0 Complications: None; Tolerated procedure well Post Procedure Treatment Plan: ok to use. Specimen: NA
[2019-03-13] MEDS ORDERED: *HR* Heparin 5,000 UNIT/ML VIAL ONE (15:42)
[2019-03-13] MEDS: *HR* Heparin 5,000 UNIT/ML VIAL IVP PRN (19:29)
--- NOTE | 2019-03-13 20:59 | Event Note ---
Date of Encounter: 03/13/19 Time of Encounter: 20:40 In reviewing pts. chart, pts. troponin notably elevated w/initial at 5.73, second at 5.47, and third at 4.42. Troponin elevation likely d/t renal dysfunction status versus cardiac. Echocardiogram ordered today which showed LVEF 25-30% with no improvement compared to 03/23/18 study. Severe global and segmental left ventricular systolic dysfunction. Moderate concentric left ventricular hypertrophy. Normal right ventricular size and function. Mild tricuspid regurgitation. Mild pulmonic regurgitation. No pulmonary hypertension. Patient is currently ESRD on PD but is noncompliant in performing her PD at home with continued nonadherence according to family. Patient now uremic. Patient has consented to HD today with next HD plan for tomorrow. Due to concern for current increased troponin and reduced LVEF, consulted Cardiology and spoke with Dr. Gauri Brooks with recommendation that Cardiology is willing to see patient if needed given current status. No formal Cardiology consult has been placed yet and I appreciate the recommendations as always.
--- NOTE | 2019-03-13 23:44 | Internal Med Progress Note ---
Hospitalist Progress Note - Encounter Date of Encounter: 03/13/19 Time of Encounter: 19:00 - Subjective Interval History: SUBJECTIVE: The patient was admitted to the severe weakness secondary to uremic syndrome/ESRD. She was taking peritoneal dialysis at home. He developed severe hyperkalemia/metabolic acidosis. With phosphorus of 11.0. She got temporary hemodialysis today. She could not complete 100% of scheduled hemodialysis. Feels weak. Denies pain and difficulty breathing. OBJECTIVE: Skin: Free of rash and discoloration. ENMT: Oral/pharyngeal mucosa is normal in appearance. Eyes: Sclera is white. There is no discharge from eyes. Respiratory: Normal breath sounds; no crackles or wheezes. CV: Heart is regular; no gallop or murmur. GI: Abdomen is soft and not tender. There is no palpable mass or visceromegaly. Neuro: There is no focal deficits. The patient has low attention span. Falls asleep, shortly after stopping conversation. ADDITIONAL DATA: Echocardiogram from today shows ejection fraction of 25-30% with severe global and segmental left ventricular systolic dysfunction. She has moderate concentric left ventricular hypertrophy suggesting underlying diastolic dysfunction. The patient has elevated troponin. They are 5.73, 5.47 and 4.42. They may represent NSTEMI. They may be elevated due to congestive heart failure with end-stage renal disease/metabolic acidosis. Hemoglobin is 8.7 with WBC of 14.5 thousand and normal platelet count. Electrolytes are showing bicarb of 8 (with potassium of 5.0). One is 12.73. Fasting glucose is 96. ASSESSMENT AND PLAN: End-stage renal disease/uremic syndrome. Failed treatment at home with peritoneal dialysis. Has underlying severe systolic heart failure (likely is chemic cardiomyopathy). His elevated troponin due to CHF/ESRD/metabolic acidosis with superimposed NSTEMI. Hemodialysis, as ordered by renal service. I will keep her on IV heparin. The patient is not currently a candidate for any Cardiologic interventions. We will consult cardiology, when she is medically stable. She will get low-dose beta- eloy and low-dose aspirin. Dysphagia. Swallowing evaluation has been ordered. I will keep her on mechanical soft diet and honey consistency liquids. xxx. I had quite extensive conversation with the patients daughter about her mothers medical problems. I made her aware about the possibility of NSTEMI. I told her, that we will consult cardiology when the patient is stable. - Exam Vitals: Temp Pulse Resp BP Pulse Ox 98.5 F 88 20 99/58 99 03/13/19 23:06 03/13/19 23:06 03/13/19 23:06 03/13/19 23:06 03/13/19 23:06 Exam: xx - Assessment and Plan (1) Uremia Current Visit: Yes Status: Acute (2) ESRD on peritoneal dialysis Current Visit: No Status: Chronic (3) Hypertensive renal disease with renal failure Current Visit: Yes Status: Chronic (4) Chronic systolic heart failure Current Visit: Yes Status: Chronic (5) Elevated troponin Current Visit: Yes Status: Acute (6) Ischemic cardiomyopathy Current Visit: Yes Status: Acute - Time Spent with Patient Total time spent is greater than 50% in coordination of care (as documented) at patient's floor/unit and/or counseling patient: 25 - 35 minutes Plan of Care Discussed with: patient (and her daughter...) Internal Medicine: Result - Labs CBC & Chem 7: 03/13/19 03:55 03/13/19 03:55 Labs: Short CBC 03/13/19 Range/Units 03:55 WBC 14.5 H (4.3-11.1) K/mcL Hgb 8.7 L (11.5-15.4) g/dL Hct 27.6 L (35.3-44.9) % Plt Count 349 (140-400) K/mcL Neutrophils # 13.0 H (1.6-8.9) K/mcL BMP 03/13/19 03/13/19 00:13 03:55 Sodium 134 L 139 Potassium 6.0 H 5.0 Chloride 106 105 Carbon Dioxide 6 L* 8 L* BUN > 130 H > 130 H Creatinine 12.07 H 12.73 H Glucose 110 H 96 Calcium 9.0 8.9 Cardiac Enzymes 03/13/19 Range/Units 09:51 Troponin I 4.42 H* (< 0.04) ng/mL - ABG Interpretation ABG results: PT/INR, D-dimer PT 14.0 Seconds (9.4-12.1) H 03/12/19 20:30 - Impressions Impressions Guidance Ultrasound 03/13/19 00:00 FINDINGS/IMPRESSION: Successful ultrasound and fluoroscopy guided non tunneled dialysis catheter placement with catheter tip in the right atrium. Catheter is okay for use. D/ / William Gibson / William Gibson Interpreting Provider: William Gibson Insertion Non-Tunneled Catheter 03/13/19 00:00 FINDINGS/IMPRESSION: Successful ultrasound and fluoroscopy guided non tunneled dialysis catheter placement with catheter tip in the right atrium. Catheter is okay for use. D/ / William Gibson / William Gibson Interpreting Provider: William Gibson Echocardiogram 03/13/19 09:00 Impressions: LVEF 25-30%, no improvement compared to 03/23/2018 study. Severe global and segmental left ventricular systolic dysfunction. Moderate concentric left ventricular hypertrophy. Normal right ventricular size and function. Mild tricuspid regurgitation. Mild pulmonic regurgitation. No pulmonary hypertension. Left Ventricular Wall Motion: Rest Echo Findings The apical inferior, mid inferior, basal inferior, basal anterior, mid inferior septal, basal inferior septal, apical lateral, mid anterior lateral, basal anterior lateral, mid inferior lateral, basal anterior septal and basal inferior lateral jacobsen were hypokinetic. The apex, mid anterior, apical septal and mid anterior septal jacobsen were akinetic. The apical anterior wall was not visualized. Findings: Study Quality * Technically sub-optimal due to clinical status. ECG Findings * Sinus rhythm with PVCs. Left Ventricle * LVEF 25-30%. * Normal LV chamber size. * Severe global and segmental left ventricular systolic dysfunction. * Moderate concentric left ventricular hypertrophy. * Mild left ventricular diastolic dysfunction. Right Ventricle * Normal right ventricular structure and function. Left Atrium * Normal left atrial size. Right Atrium * Normal right atrial size. Interatrial Septum * Interatrial septum not well evaluated. Aortic Valve * Trileaflet aortic valve. * No aortic stenosis. * Mild aortic regurgitation. Mitral Valve * Moderate posterior mitral annular calcification * No mitral stenosis. * Trace mitral regurgitation. Tricuspid Valve * Normal tricuspid valve structure. * No tricuspid stenosis. * Mild tricuspid regurgitation. * Estimated RVSP is 27 mmHg. * Estimated RA pressure is 3 mmHg. * No pulmonary hypertension. Pulmonic Valve * Pulmonic valve is not well visualized. * No pulmonic stenosis. * Mild pulmonic regurgitation. Aorta * Normally sized aortic root. Pericardium * The pericardium appears normal. IVC * The IVC is not dilated. * > 50% respiratory change Consult Discharge Plan - Plan Referrals: Fausto Gao DO [Primary Care Provider] -
[2019-03-14 01:30] LABS: Basophils % 0.1 %; Eosinophils % 0.2 %; Hematocrit 21.8 % (35.3-44.9); Immature Granulocytes % 0.7 % (0-4); Lymphocytes # 0.3 K/mcL (0.6-4.6); Lymphocytes % 2.9 %; Mean Corpuscular HGB Conc 32.1 g/dL (31.6-35.5); Mean Corpuscular Hemoglobin 29.2 pg (28.0-33.3); Mean Corpuscular Volume 90.8 fL (83.0-100.0); Mean Platelet Volume 9.5 fL (9.4-12.4); Monocytes # 0.5 K/mcL (0.0-1.3); Monocytes % 4.3 %; Neutrophils # 10.6 K/mcL (1.6-8.9); Platelet Count 251 K/mcL (140-400); Red Cell Distribution Width 14.5 % (11.5-14.5); Segmented Neutrophils % 91.8 %
[2019-03-14 01:52] LABS: Blood Urea Nitrogen > 130 mg/dL (8-23); Calcium 7.7 mg/dL (8.6-10.3); Carbon Dioxide 18 mEq/L (23-29); Chloride 103 mEq/L (98-107); Glucose 118 mg/dL (70-105); Potassium 3.7 mEq/L (3.5-5.1); Sodium 140 mEq/L (136-145); eGFR For Non-African Americans 4 (> 60)
[2019-03-14 04:32] LABS: Hematocrit 21.3 % (35.3-44.9)
[2019-03-14] MEDS: Heparin 25,000 UNIT/250 ML D5W 25,000 UNIT/250 ML IV.SOLN IVC SCH (05:29)
[2019-03-14] MEDS ORDERED: 0.9 % Sodium Chloride 250 ML IVC PRN (07:06)
[2019-03-14] MEDS ORDERED: Albumin 25% 25gram/100mL 25 GM/100 ML IV.SOLN IVPB PRN (07:06)
[2019-03-14] MEDS: Folic Acid 1 MG TABLET PO SCH (08:29)
[2019-03-14 09:13] LABS: Hematocrit 24.9 % (35.3-44.9); Hemoglobin 8.2 g/dL (11.5-15.4)
[2019-03-14] MEDS ORDERED: Albumin 25% 12.5gm/50mL 25.0 GM/100 ML IV.SOLN ONE (09:40)
[2019-03-14] MEDS ORDERED: *HR* Heparin 10,000 UNIT/10 ML VIAL IV PRN (10:09)
--- NOTE | 2019-03-14 10:21 | Nephrology Progress Note ---
Date of Encounter: 03/14/19 Time of Encounter: 07:45 - Assessment and Plan (1) ESRD (end stage renal disease) Current Visit: Yes Status: Chronic Yesterday, she did not tolerate dialysis well. I have again ordered very gentle blood flows, cold dialysate, and minimal fluid removal, as well as use of 25 g of albumin to minimize intradialytic hypotension. I see on exam today a surprise. I had taken great efforts to work with the interventional radiology department yesterday early in the morning to have the patient get a Permacath for dialysis. However, there is a triple-lumen temporary dialysis catheter quite my surprise in the RIJ. Ultimately, she will need to have this upgraded to a Permacath, before discharge. Unclear why a temporary line was placed instead of the Permacath. I have also placed a director of social work consult, to help arrange a dialysis chair time, since she will no longer continue on PD. If she does not tolerate HD well enough again today, then she may need a palliative care/hospice consult. (2) Hyperkalemia Current Visit: Yes Status: Acute (3) Uremia Current Visit: Yes Status: Acute (4) Hypertension Current Visit: No Status: Chronic Qualifiers: Hypertension type: renovascular hypertension Qualified Code(s): I15.0 - Renovascular hypertension Subjective Principal diagnosis: ESRD, Switching from PD to HD Interval history: The patient was seen and examined earlier this morning. She reported feeling a good appetite, and was getting ready to eat breakfast. We discussed the events of dialysis yesterday, and now she did not tolerate it. Reported to her that we will again try very gentle dialysis today. She had no other major complaints. Objective - Vital Signs Vital signs: Vital Signs Temp Pulse Resp BP Pulse Ox 03/14/19 07:07 97.4 F L 92 18 109/58 99 03/14/19 03:51 97.8 F 90 18 106/61 100 03/13/19 23:06 98.5 F 88 20 99/58 99 03/13/19 19:45 98.8 F 98 25 111/56 100 03/13/19 17:00 96.2 F L 19 96/55 03/13/19 16:45 74/40 03/13/19 16:40 79/51 03/13/19 16:25 96.8 F L 18 99/47 03/13/19 11:26 97.6 F 86 22 129/77 100 Intake and Output 03/13/19 03/14/19 03/14/19 23:59 07:59 15:59 Intake Total 525 / 525 124 / 124 120 / 120 Output Total 321 / 321 0 / 0 Balance 204 / 204 124 / 124 120 / 120 Intake: IV Fluids 25 / 25 124 / 124 Heparin 25,000 UNIT/250 ML D5W 25 / 25 124 / 124 25,000 unit In 250 ml @ 12 UNIT /KG/HR 6.389 mls/hr IVC .Q24H SRUTHI Rx#:[id number] Oral 0 / 0 120 / 120 Intake, Rinseback and Flushes 500 / 500 Output: Urine 200 / 200 0 / 0 Total Dialysis (HD) Output 121 / 121 Other: Meal Breakfast Percent of Meal Consumed 30% Stool Size Small Large Stool Consistency soft loose Stool Color Brown Brown Yellow Chaves Green White # Voids 1 # Bowel Movements 1 # Bowel Movement Diapers 1 Weight 57.7 kg Hemodialysis Net Fluid Removed 0 (mL) Patient Weight 03/14/19 23:59 Weight 57.7 kg - General Appearance General appearance: Present: well-developed, appears started age, chronically ill, fatigue, frail EENT: Present: ATNC, PERRL, mucous membranes moist Neck: Present: supple Respiratory: Present: course breath sounds Cardiology: Present: no edema, regular rate, regular rhythm, normal S1, normal S2 Dialysis Vascular Access: Venous Catheter (actually a temporary HD triple lume HD catheter) Gastrointestinal: Present: normoactive bowel sounds, no guarding, obese Additional Comments: PD catheter without TTP Integumentary: Present: warm and dry Neurologic: Present: no focal deficit, no asterixis Musculoskeletal: Present: no cyanosis Psychiatric: Present: mood/affect appropriate, cooperative - Lab 03/14/19 08:48 03/14/19 01:15 Most recent lab results Calcium 7.7 mg/dL (8.6-10.3) L 03/14/19 01:15 Phosphorus 10.8 mg/dL (2.7-4.5) H 03/13/19 03:55 Magnesium 1.8 mg/dL (1.6-2.6) 03/13/19 03:55 Consult Discharge Plan - Plan Referrals: Fausto Gao DO [Primary Care Provider] -
[2019-03-14] MEDS: Isosorbide MONOnitrate (24 HR) 30 MG TAB.ER.24H PO SCH (13:45)
--- NOTE | 2019-03-14 15:46 | Electrocardiograph Report ---
[place] [id number] Test Date: 2019-03-12 Pat Name: Ksenia Austin Department: EXAM7 Room: 2A13 Gender: F [place] Hand: : 1945 Requested By: Maren See Order Number: [id number] Reading MD: Gauri Brooks Measurements Intervals [place] Rate: 91 P: 73 RI: 192 QRS: 58 QRSD: 117 T: -33 QT: 348 QTc: 429 Interpretive Statements Sinus rhythm Nonspecific intraventricular conduction delay Lateral infarct, recent Probable anteroseptal infarct, recent Electronically Signed On 03-14-2019 15:45:21 EDT by Gauri Brooks
[2019-03-14] MEDS: Ondansetron 4 MG/2 ML VIAL IVP PRN (15:52)
[2019-03-14] MEDS: *HR* Promethazine 25 MG/ML VIAL IVP PRN (19:45)
--- NOTE | 2019-03-14 22:44 | Internal Med Progress Note ---
Hospitalist Progress Note - Encounter Date of Encounter: 03/14/19 Time of Encounter: 19:00 - Subjective Interval History: SUBJECTIVE: The patient is stronger. She tolerated 2-hour hemodialysis today. Denies chest pain. Denies difficulty breathing. Denies coughing and wheezing. Denies abdominal pain, nausea and vomiting. The patient was admitted to the severe [facility] secondary to uremic syndrome/ESRD. She was taking peritoneal dialysis at home. He developed severe hyperkalemia/metabolic acidosis. With phosphorus of 11.0. OBJECTIVE: Skin: Free of rash and discoloration. ENMT: Oral/pharyngeal mucosa is normal in appearance. Eyes: Sclera is white. There is no discharge from eyes. Respiratory: Normal breath sounds; no crackles or wheezes. CV: Heart is regular; no gallop or murmur. GI: Abdomen is soft and not tender. There is no palpable mass or visceromegaly. Neuro: There is no focal deficits. The patient has low attention span. Falls asleep, shortly after stopping conversation. ADDITIONAL DATA: Echocardiogram from yesterday showed ejection fraction of 25-30% with severe global and segmental left ventricular systolic dysfunction. She has moderate concentric left ventricular hypertrophy suggesting underlying diastolic dysfunc tion. The patient has elevated troponin. They are 5.73, 5.47 and 4.42. They may represent NSTEMI. They may be elevated due to congestive heart failure with end-stage renal disease/metabolic acidosis. Hemoglobin is 7.0 (8.7 yesterday) with WBC of 11.5 thousand (14.5 thousand yesterday) and normal platelet count. She has normal sodium and potassium. Bicarb is 18; was 7 at admission. ASSESSMENT AND PLAN: End-stage renal disease/uremic syndrome. Failed treatment at home with peritoneal dialysis. Has underlying severe systolic heart failure (likely ischemic cardiomyopathy). His elevated troponin is due to CHF/ESRD/metabolic acidosis with likely superimposed NSTEMI. To continue hemodialysis, as ordered by renal service. I will keep her on IV heparin. The patient is not currently a candidate for any cardiologic interventions. We will consult cardiology, when she is medically stable. She is on Lopressor, Zocor and Plavix. Dysphagia. Swallowing evaluation has been ordered. I will keep her on mechanical soft diet and honey consistency liquids. She seems to be doing okay with that diet. Anemia. Secondary to end-stage renal disease. I will transfuse her, if needed. xxx. I had quite extensive conversation with the patients daughter about her mothers medical problems. I made her aware about the possibility of NSTEMI. I told her, that we will consult cardiology when the patient is stable. - Exam Vitals: Temp Pulse Resp BP Pulse Ox 98.6 F 92 16 123/69 99 03/14/19 18:44 03/14/19 18:44 03/14/19 18:44 03/14/19 18:44 03/14/19 18:44 Exam: xx - Assessment and Plan (1) Uremia Current Visit: Yes Status: Acute (2) ESRD on peritoneal dialysis Current Visit: No Status: Chronic (3) Hypertensive renal disease with renal failure Current Visit: Yes Status: Chronic (4) Chronic systolic heart failure Current Visit: Yes Status: Chronic (5) Elevated troponin Current Visit: Yes Status: Acute (6) Ischemic cardiomyopathy Current Visit: Yes Status: Acute (7) Dysphagia Current Visit: Yes Status: Acute - Time Spent with Patient Total time spent is greater than 50% in coordination of care (as documented) at patient's floor/unit and/or counseling patient: 25 - 35 minutes Plan of Care Discussed with: patient Internal Medicine: Result - Labs CBC & Chem 7: 03/14/19 08:48 03/14/19 01:15 Labs: Short CBC 03/14/19 03/14/19 03/14/19 Range/Units 01:15 04:10 08:48 WBC 11.5 H (4.3-11.1) K/mcL Hgb 7.0 L D 7.0 L 8.2 L (11.5-15.4) g/dL Hct 21.8 L 21.3 L 24.9 L (35.3-44.9) % Plt Count 251 (140-400) K/mcL Neutrophils # 10.6 H (1.6-8.9) K/mcL BMP 03/14/19 01:15 Sodium 140 Potassium 3.7 D Chloride 103 Carbon Dioxide 18 L BUN > 130 H Creatinine 9.79 H Glucose 118 H Calcium 7.7 L Cardiac Enzymes 03/14/19 Range/Units 15:56 Troponin I 3.51 H* (< 0.04) ng/mL - ABG Interpretation ABG results: PT/INR, D-dimer PT 14.0 Seconds (9.4-12.1) H 03/12/19 20:30 Consult Discharge Plan - Plan Referrals: Fausto Gao DO [Primary Care Provider] -
[2019-03-15 00:54] LABS: Hematocrit 20.3 % (35.3-44.9); Mean Corpuscular Hemoglobin 29.7 pg (28.0-33.3); Mean Corpuscular Volume 92.7 fL (83.0-100.0); Mean Platelet Volume 9.5 fL (9.4-12.4); Platelet Count 222 K/mcL (140-400); Red Blood Count 2.19 M/mcL (3.82-4.97); Red Cell Distribution Width 14.4 % (11.5-14.5)
[2019-03-15 01:02] LABS: Hemoglobin 6.5 g/dL (11.5-15.4)
[2019-03-15 01:07] LABS: Calcium 7.9 mg/dL (8.6-10.3); Potassium 3.1 mEq/L (3.5-5.1)
[2019-03-15 01:12] LABS: Troponin I 2.93 ng/mL (< 0.04)
[2019-03-15] MEDS ORDERED: 0.9 % Sodium Chloride 250 ML ONE ×2 (02:00→09:22)
--- NOTE | 2019-03-15 06:35 | Event Note ---
Date of Encounter: 03/15/19 Time of Encounter: 01:19 Alerted by patient's nurse GURWINDER marshall the patient's hemoglobin was now 6.5 this a.m. Transfusion order for 3 units of PBRCs placed and confirmed w/blood bank who stated pt. already had 3 units ready. Nurse reported patient resting comfortably in bed with no symptoms. Will transfuse the patient as ordered. Nurse instructed to continue monitoring patient very closely and keep me updated of any adverse changes.
[2019-03-15] MEDS: Heparin 25,000 UNIT/250 ML D5W 25,000 UNIT/250 ML IV.SOLN IVC SCH (07:59)
--- NOTE | 2019-03-15 08:01 | Nephrology Progress Note ---
Date of Encounter: 03/15/19 Time of Encounter: 08:30 - Assessment and Plan (1) ESRD (end stage renal disease) Current Visit: Yes Status: Chronic She tolerated HD much better yesterday. Will rest her today (Saturday) and plan for another treatment of HD on Saturday. Meanwhile, agree with transfusion, but monitor her respiratory status and volume status while getting the units. I am okay with just one unit of PRBCs of transfusion, which would limit the total volume burden in an ESRD patient. Awaiting SW to arrange for a dialysis chair time (she was previous on PD). See my note regarding the temporary HD catheter from yesterday; she will need to be made NPO tonight and again request a Permacath tomorrow. Okay to replace with oral KCl x1. (2) Uremia Current Visit: Yes Status: Resolved (3) Hypertension Current Visit: No Status: Chronic Qualifiers: Hypertension type: renovascular hypertension Qualified Code(s): I15.0 - Renovascular hypertension (4) Hypokalemia Current Visit: Yes Status: Acute She was hyperkalemic, but with HD both the uremia and hyperkalemia have corrected. Now slightly hypokalemic. See above. (5) Anemia Current Visit: Yes Status: Acute Worsening. See above. Qualifiers: Anemia type: unspecified type Qualified Code(s): D64.9 - Anemia, unspecified Subjective Principal diagnosis: ESRD, Switching from PD to HD Interval history: The patient was seen and examined earlier this morning. She affirmed having mild nausea. She was found to have worsened anemia. She reported ongoing shortness of breath. Objective - Vital Signs Vital signs: Vital Signs Temp Pulse Resp BP Pulse Ox 03/15/19 06:36 98.1 F 91 16 131/73 97 03/15/19 06:34 98.1 F 90 16 107/70 96 03/15/19 03:56 97.9 F 95 16 106/64 100 03/15/19 03:50 98.4 F 97 16 110/66 03/15/19 03:37 97.9 F 96 16 117/79 03/15/19 03:22 99.2 F 99 17 97/67 99 03/14/19 22:32 99 F 99 17 125/72 99 03/14/19 18:44 98.6 F 92 16 123/69 99 03/14/19 15:47 98.2 F 92 17 115/66 98 03/14/19 13:42 97 119/70 03/14/19 12:55 97 F L 18 120/64 03/14/19 12:40 100/59 03/14/19 12:25 106/60 03/14/19 12:10 98/58 03/14/19 11:55 102/61 03/14/19 11:40 100/65 03/14/19 11:25 93/59 03/14/19 11:10 87/53 03/14/19 10:55 97/57 03/14/19 10:40 97.6 F 23 110/55 Intake and Output 03/14/19 03/14/19 03/15/19 15:59 23:59 07:59 Intake Total 900 / 900 120 / 120 350 / 350 Output Total 275 / 275 Balance 625 / 625 120 / 120 350 / 350 Intake: IV Fluids 40 / 40 Heparin 25,000 UNIT/250 ML D5W 40 / 40 25,000 unit In 250 ml @ 12 UNIT /KG/HR 6.389 mls/hr IVC .Q24H [facility] Rx#:[id number] Oral 360 / 360 120 / 120 0 / 0 Blood Product 350 / 350 Rbcs Leuko Poor As-1 Unit 350 / 350 [id number] Intake, Rinseback and Flushes 500 / 500 Output: Urine 0 / 0 Total Dialysis (HD) Output 275 / 275 Other: Meal Lunch Dinner Percent of Meal Consumed 65% 5% Stool Size Large Moderate Stool Consistency loose loose Stool Color Brown Chaves # Voids 1 # Urine Diapers 1 # Bowel Movements 1 # Bowel Movement Diapers 1 1 Weight 58.1 kg Hemodialysis Net Fluid Removed 0 (mL) - General Appearance General appearance: Present: appears started age, chronically ill, fatigue, frail EENT: Present: ATNC, PERRL, mucous membranes moist Neck: Present: supple Respiratory: Present: course breath sounds Cardiology: Present: holosystolic murmur, no edema, irregular rhythm, normal S1, normal S2 Dialysis Vascular Access: Venous Catheter (Right IJ temporary HD catheter with dressing C/D/I and excellently applied) Gastrointestinal: Present: normoactive bowel sounds, no guarding Integumentary: Present: warm and dry Neurologic: Present: no focal deficit, no asterixis Musculoskeletal: Present: no cyanosis Psychiatric: Present: cooperative - Lab 03/15/19 00:30 03/15/19 00:14 Most recent lab results Calcium 7.9 mg/dL (8.6-10.3) L 03/15/19 00:14 Phosphorus 10.8 mg/dL (2.7-4.5) H 03/13/19 03:55 Magnesium 1.8 mg/dL (1.6-2.6) 03/13/19 03:55 Consult Discharge Plan - Plan Referrals: Fausto Gao DO [Primary Care Provider] -
[2019-03-15] MEDS: *HR* Promethazine 25 MG/ML VIAL IVP PRN (09:43)
[2019-03-15] MEDS: *HR* Heparin 5,000 UNIT/ML VIAL IVP PRN ×2 (10:22→23:57)
[2019-03-15] MEDS: Folic Acid 1 MG TABLET PO SCH (11:40)
[2019-03-15] MEDS: Isosorbide MONOnitrate (24 HR) 30 MG TAB.ER.24H PO SCH (11:40)
[2019-03-15 13:24] LABS: Hematocrit 34.4 % (35.3-44.9)
[2019-03-15] MEDS ORDERED: Potassium Chloride Elixir 20 MEQ/15 ML UDC PO ONE (17:56)
--- NOTE | 2019-03-15 21:25 | Internal Med Progress Note ---
Hospitalist Progress Note - Encounter Date of Encounter: 03/15/19 Time of Encounter: 19:00 - Subjective Interval History: SUBJECTIVE: The patient is getting stronger. She tolerated 2-hour hemodialysis yesterday. Denies chest pain. Denies difficulty breathing. Denies coughing and wheezing. Denies abdominal pain, nausea and vomiting. OBJECTIVE: Skin: Free of rash and discoloration. ENMT: Oral/pharyngeal mucosa is normal in appearance. Eyes: Sclera is white. There is no discharge from eyes. Respiratory: Normal breath sounds; no crackles or wheezes. CV: Heart is regular; no gallop or murmur. GI: Abdomen is soft and not tender. There is no palpable mass or visceromegaly. Neuro: There is no focal deficits. The patients attention span is good today. ADDITIONAL DATA: Echocardiogram from 03/13 showed ejection fraction of 25-30% with severe global and segmental left ventricular systolic dysfunction. She has moderate concentric left ventricular hypertrophy suggesting underlying diastolic dysfunction. The patient has elevated troponin. They are 5.73, 5.47 and 4.42, 3.51 and 2.93. They may represent NSTEMI. They may be elevated due to congestive heart failure with end-stage renal disease/metabolic acidosis. Her hemoglobin was only 6.5 today morning. We ordered 3 units of packed red blood cells. We checked her hemoglobin after the second unit of packed red blood cells. It was 11.0. Yesterday hemoglobin was 8.2. Her potassium is 3.1; 3.7 yesterday. Bicarb is 23; 18 yesterday and 7 at admission. ASSESSMENT AND PLAN: End-stage renal disease/uremic syndrome. Failed treatment at home with peritoneal dialysis. Has underlying severe systolic heart failure (likely ischemic cardiomyopathy). His elevated troponin is due to CHF/ESRD/metabolic acidosis with likely superimposed NSTEMI. To continue hemodialysis, as ordered by renal service. I will keep her on IV heparin. The patient is not currently a candidate for any cardiologic interventions. We will consult cardiology, when she is medically stable. She is on Lopressor and Zocor. I would substitute her Plavix with low-dose aspirin. She needs a permacath inserted. Dysphagia. Swallowing evaluation has been ordered. I will keep her on mechanical soft diet and honey consistency liquids. She seems to be doing okay with that diet. Anemia. Secondary to end-stage renal disease. He received 2 units of packed red blood cells. There is no evidence for GI bleeding GERD this time. Debility/deconditioning. I am ordering physical therapy. Xxx. I had quite extensive conversation with the patients daughter about her mothers medical problems. I made her aware about the possibility of NSTEMI. I told her, that we will consult cardiology, when the patient is stable. - Exam Vitals: Temp Pulse Resp BP Pulse Ox 100.6 F H 96 18 113/70 94 03/15/19 19:05 03/15/19 19:05 03/15/19 19:05 03/15/19 19:05 03/15/19 19:05 Exam: xx - Assessment and Plan (1) Uremia Current Visit: Yes Status: Resolved (2) ESRD on peritoneal dialysis Current Visit: No Status: Chronic (3) Hypertensive renal disease with renal failure Current Visit: Yes Status: Chronic (4) Chronic systolic heart failure Current Visit: Yes Status: Chronic (5) Elevated troponin Current Visit: Yes Status: Acute (6) Ischemic cardiomyopathy Current Visit: Yes Status: Acute (7) Dysphagia Current Visit: Yes Status: Acute (8) Debility Current Visit: Yes Status: Acute - Time Spent with Patient Total time spent is greater than 50% in coordination of care (as documented) at patient's floor/unit and/or counseling patient: 25 - 35 minutes Plan of Care Discussed with: patient Internal Medicine: Result - Labs CBC & Chem 7: 03/15/19 12:49 03/15/19 00:14 Labs: Short CBC 03/15/19 03/15/19 Range/Units 00:30 12:49 WBC 13.5 H (4.3-11.1) K/mcL Hgb 6.5 L D 11.0 L D (11.5-15.4) g/dL Hct 20.3 L 34.4 L (35.3-44.9) % Plt Count 222 (140-400) K/mcL BMP 03/15/19 00:14 Sodium 137 Potassium 3.1 L Chloride 101 Carbon Dioxide 23 BUN 80 H Creatinine 5.94 H Glucose 129 H Calcium 7.9 L Cardiac Enzymes 03/15/19 Range/Units 00:14 Troponin I 2.93 H* (< 0.04) ng/mL - ABG Interpretation ABG results: PT/INR, D-dimer PT 14.0 Seconds (9.4-12.1) H 03/12/19 20:30 Consult Discharge Plan - Plan Referrals: Fausto Gao DO [Primary Care Provider] -
[2019-03-16] MEDS: Heparin 25,000 UNIT/250 ML D5W 25,000 UNIT/250 ML IV.SOLN IVC SCH ×2 (05:45→21:20)
[2019-03-16] MEDS ORDERED: 0.9 % Sodium Chloride 250 ML IVC PRN (06:46)
[2019-03-16 06:58] LABS: Hematocrit 30.7 % (35.3-44.9); Hemoglobin 10.1 g/dL (11.5-15.4); Mean Corpuscular HGB Conc 32.9 g/dL (31.6-35.5); Mean Corpuscular Hemoglobin 29.5 pg (28.0-33.3); Mean Corpuscular Volume 89.8 fL (83.0-100.0); Mean Platelet Volume 9.7 fL (9.4-12.4); Platelet Count 201 K/mcL (140-400); Red Blood Count 3.42 M/mcL (3.82-4.97); Red Cell Distribution Width 14.8 % (11.5-14.5)
[2019-03-16 07:22] LABS: Calcium 8.1 mg/dL (8.6-10.3); Potassium 4.4 mEq/L (3.5-5.1)
[2019-03-16] MEDS ORDERED: 0.9 % Sodium Chloride 2,000 ML ONE (07:38)
[2019-03-16] MEDS: Folic Acid 1 MG TABLET PO SCH (08:07)
[2019-03-16] MEDS: Potassium Chloride Elixir 20 MEQ/15 ML UDC PO SCH ×2 (08:08→17:07)
[2019-03-16] MEDS: Isosorbide MONOnitrate (24 HR) 30 MG TAB.ER.24H PO SCH (08:08)
--- NOTE | 2019-03-16 08:58 | Electrocardiograph Report ---
[address] [place], [place] [address] Test Date: 2019-03-13 Pat Name: Ksenia Austin Department: 112 Room: 2A13 Gender: F [employer] Production Manager: SMITA : 1945 Requested By: Mulugeta Canales Order Number: [id number] Reading MD: Timothy Quick Measurements Intervals [place] Rate: 100 P: 51 NV: 171 QRS: 28 QRSD: 113 T: -32 QT: 366 QTc: 423 Interpretive Statements SINUS TACHYCARDIA WITH FREQUENT SUPRAVENTRICULAR PREMATURE COMPLEXES LEFT VENTRICULAR HYPERTROPHY AND ST-T CHANGE ANTEROSEPTAL MYOCARDIAL INFARCTION, POSSIBLY ACUTE LATERAL MYOCARDIAL INFARCTION, PROBABLY RECENT ACUTE NE Electronically Signed On 03-16-2019 8:56:53 EDT by Timothy Quick
--- NOTE | 2019-03-16 09:31 | Nephrology Progress Note ---
Date of Encounter: 03/16/19 Time of Encounter: 07:40 - Assessment and Plan (1) ESRD (end stage renal disease) Current Visit: Yes Status: Chronic HD today and now will plan for HD every MWF. Awaiting 5 days after the last dose of Plavix is given (see my addendum from yesterday to hold the Plavix, if able), which is the [facility] protocol to then allow for placement of a Permacath. Awaiting SW to help with HD chair assignment. I will be available tomorrow if needed, but I will plan to see her every MWF for her dialysis. Thank you. (2) Uremia Current Visit: Yes Status: Resolved (3) Hypertension Current Visit: No Status: Chronic Qualifiers: Hypertension type: renovascular hypertension Qualified Code(s): I15.0 - Renovascular hypertension (4) Hypokalemia Current Visit: Yes Status: Acute (5) Anemia Current Visit: Yes Status: Acute Qualifiers: Anemia type: unspecified type Qualified Code(s): D64.9 - Anemia, unspecified Subjective Principal diagnosis: ESRD, Switching from PD to HD Interval history: The patient was seen and examined earlier this morning. She affirmed having mild nausea but has been able to eat and drink, she said. Objective - Vital Signs Vital signs: Vital Signs Temp Pulse Resp BP Pulse Ox 03/16/19 08:16 90 03/16/19 06:54 98.0 F 88 18 130/79 90 03/16/19 04:17 97.9 F 86 18 127/75 94 03/15/19 23:21 99.9 F H 82 18 126/85 96 03/15/19 19:05 100.6 F H 96 18 113/70 94 03/15/19 15:25 99.0 F 82 18 119/69 94 03/15/19 12:33 98.2 F 92 20 154/90 99 03/15/19 10:42 97.5 F L 95 18 134/85 96 03/15/19 09:46 98.0 F 89 18 135/87 100 03/15/19 09:31 98.9 F 90 16 141/86 100 Intake and Output 03/15/19 03/16/19 03/16/19 23:59 07:59 15:59 Intake Total 263.4 / 263.4 84.5 / 84.5 290 / 290 Balance 263.4 / 263.4 84.5 / 84.5 290 / 290 Intake: IV Fluids 143.4 / 143.4 84.5 / 84.5 20 / 20 Heparin 25,000 UNIT/250 ML D5W 143.4 / 143.4 84.5 / 84.5 20 / 20 25,000 unit In 250 ml @ 12 UNIT /KG/HR 6.389 mls/hr IVC .Q24H [facility] Rx#:[id number] Oral 120 / 120 270 / 270 Other: Meal Dinner Breakfast Percent of Meal Consumed 10% 60% Stool Size Small Moderate # Urine Diapers 1 # Bowel Movements 1 1 Weight 58.3 kg Patient Weight 03/16/19 23:59 Weight 58.3 kg - General Appearance General appearance: Present: well-nourished, appears started age EENT: Present: ATNC, PERRL, mucous membranes moist Neck: Present: supple Respiratory: Present: rhonchi Cardiology: Present: edema (trace pedal edema b/l), regular rate, normal S1, normal S2 Dialysis Vascular Access: Venous Catheter (Rt IJ temporary HD catheter with trace bleeding at exit site) Gastrointestinal: Present: normoactive bowel sounds, no guarding Additional Comments: LLQ PD catheter without pt complaint of tenderness Integumentary: Present: warm and dry Neurologic: Present: no focal deficit, no asterixis, alert and oriented x3 Musculoskeletal: Present: no erythema, no cyanosis Psychiatric: Present: mood/affect appropriate, cooperative - Lab 03/16/19 06:50 03/16/19 06:50 Most recent lab results Calcium 8.1 mg/dL (8.6-10.3) L 03/16/19 06:50 Phosphorus 10.8 mg/dL (2.7-4.5) H 03/13/19 03:55 Magnesium 1.8 mg/dL (1.6-2.6) 03/13/19 03:55 Consult Discharge Plan - Plan Referrals: Fausto Gao DO [Primary Care Provider] -
--- NOTE | 2019-03-16 16:30 | Electrocardiograph Report ---
[address] [address] Test Date: 2019-03-15 Pat Name: Ksenia Austin Department: 112 Room: 2A13 Gender: F Manager Sign: : 1945 Requested By: Fausto Strickland Order Number: [id number] Reading MD: Timothy Quick Measurements Intervals [place] Rate: 101 P: 42 MS: 136 QRS: 19 QRSD: 113 T: -40 QT: 353 QTc: 411 Interpretive Statements SINUS TACHYCARDIA SEPTAL MYOCARDIAL INFARCTION, POSSIBLY RECENT LATERAL MYOCARDIAL INFARCTION, PROBABLY RECENT ACUTE [place] Electronically Signed On 03-16-2019 16:28:26 EDT by Timothy Quick
[2019-03-16] MEDS: *HR* Promethazine 25 MG/ML VIAL IVP PRN (21:16)
--- NOTE | 2019-03-16 22:30 | Internal Med Progress Note ---
Hospitalist Progress Note - Encounter Date of Encounter: 03/16/19 Time of Encounter: 19:00 - Subjective Interval History: SUBJECTIVE: I had a good conversation with the patient today. Her mental status is baseline (according to her family). She denies chest pain and difficulty breathing. Denies coughing and wheezing. He denies abdominal pain, nausea and vomiting. She gets hemodialysis. She got 2 units of packed red blood cells yesterday. OBJECTIVE: Skin: Free of rash and discoloration. ENMT: Oral/pharyngeal mucosa is normal in appearance. Eyes: Sclera is white. There is no discharge from eyes. Respiratory: Normal breath sounds; no crackles or wheezes. CV: Heart is regular; no gallop or murmur. GI: Abdomen is soft and not tender. There is no palpable mass or visceromegaly. Neuro: There is no focal deficits. The patients attention span is good today. ADDITIONAL DATA: Echocardiogram from 03/13 showed ejection fraction of 25-30% with severe global and segmental left ventricular systolic dysfunction. She has moderate concentric left ventricular hypertrophy suggesting underlying diastolic dysfunction. The patient elevated troponin at admission. They were 5.73, 5.47 and 4.42, 3.51 and 2.93. They may represent NSTEMI. They may be elevated due to congestive heart failure with end-stage renal disease/metabolic acidosis. Hemoglobin is 10.1; the lowest one from yesterday was 6.5. WBC is 15.8 thousand with normal platelet count. Her lites are normal. Creatinine 6.78. Calcium is 8.1. ASSESSMENT AND PLAN: End-stage renal disease/uremic syndrome. Failed treatment at home with peritoneal dialysis. Has underlying severe systolic heart failure (likely ischemic cardiomyopathy). His elevated troponin is due to CHF/ESRD/metabolic acidosis with likely superimposed NSTEMI. To continue hemodialysis, as ordered by renal service. I will keep her on IV heparin. She is on Lopressor and Zocor. Her Plavix is on hold due to pending permacath insertion. I decided to consult cardiology. Dysphagia. Evaluated by speech therapy. The patient was put on regular liquids. Anemia. Secondary to end-stage renal disease. She received 2 units of packed red blood cells. There is no evidence for GI bleeding GERD this time. - Exam Vitals: Temp Pulse Resp BP Pulse Ox 99.7 F H 101 16 106/64 93 03/16/19 19:27 03/16/19 19:27 03/16/19 19:27 03/16/19 19:27 03/16/19 19:27 Exam: xx - Assessment and Plan (1) Uremia Current Visit: Yes Status: Resolved (2) ESRD on peritoneal dialysis Current Visit: No Status: Chronic (3) Hypertensive renal disease with renal failure Current Visit: Yes Status: Chronic (4) Chronic systolic heart failure Current Visit: Yes Status: Chronic (5) Elevated troponin Current Visit: Yes Status: Acute (6) Ischemic cardiomyopathy Current Visit: Yes Status: Acute (7) Dysphagia Current Visit: Yes Status: Acute (8) Debility Current Visit: Yes Status: Acute - Time Spent with Patient Total time spent is greater than 50% in coordination of care (as documented) at patient's floor/unit and/or counseling patient: 25 - 35 minutes Plan of Care Discussed with: patient (and family) Internal Medicine: Result - Labs CBC & Chem 7: 03/16/19 06:50 03/16/19 06:50 Labs: Short CBC 03/16/19 Range/Units 06:50 WBC 15.8 H (4.3-11.1) K/mcL Hgb 10.1 L (11.5-15.4) g/dL Hct 30.7 L (35.3-44.9) % Plt Count 201 (140-400) K/mcL BMP 03/16/19 06:50 Sodium 137 Potassium 4.4 Chloride 102 Carbon Dioxide 24 BUN 95 H Creatinine 6.78 H Glucose 109 H Calcium 8.1 L - ABG Interpretation ABG results: PT/INR, D-dimer PT 14.0 Seconds (9.4-12.1) H 03/12/19 20:30 Consult Discharge Plan - Plan Referrals: Fausto Gao DO [Primary Care Provider] -
[2019-03-17] MEDS: Heparin 25,000 UNIT/250 ML D5W 25,000 UNIT/250 ML IV.SOLN IVC SCH ×2 (04:00→20:00)
[2019-03-17 04:33] LABS: Hematocrit 32.6 % (35.3-44.9); Hemoglobin 10.4 g/dL (11.5-15.4); Mean Corpuscular HGB Conc 31.9 g/dL (31.6-35.5); Mean Corpuscular Hemoglobin 29.6 pg (28.0-33.3); Mean Corpuscular Volume 92.9 fL (83.0-100.0); Mean Platelet Volume 9.7 fL (9.4-12.4); Platelet Count 214 K/mcL (140-400); Red Blood Count 3.51 M/mcL (3.82-4.97); Red Cell Distribution Width 14.9 % (11.5-14.5)
[2019-03-17 04:53] LABS: Calcium 8.2 mg/dL (8.6-10.3); Potassium 4.5 mEq/L (3.5-5.1)
[2019-03-17] MEDS: Isosorbide MONOnitrate (24 HR) 30 MG TAB.ER.24H PO SCH (09:30)
[2019-03-17] MEDS: Folic Acid 1 MG TABLET PO SCH (09:30)
[2019-03-17] MEDS: Potassium Chloride Elixir 20 MEQ/15 ML UDC PO SCH ×2 (09:30→17:06)
--- NOTE | 2019-03-17 13:12 | Cardiology Consult Note ---
<Gauri Broderick - Last Filed: 03/17/19 13:55> Date of Encounter: 03/17/19 Time of Encounter: 13:01 Assessment and Plan (1) Elevated troponin Current Visit: Yes Status: Acute Patient presented with complaint of uremia from nephrology office after noncompliance with peritoneal dialysis Denies chest pain at presentation or during hospitalization Suspect secondary to CHF, ESRD, metabolic acidosis vs NSTEMI EKG showed sinus tachycardia, HR 101, normal axis, AR 136, QRS 113, QT 351, QTC 411, septal TX possibly acute, lateral TX probably recent. Troponins decreasing- 5.73, 5.47, 4.42, 3.51, 2.93 Continue heparin drip Plavix on hold in anticipation of permacath placement Continue lopressor, simvastatin Begin aspirin Recommend lisinopril 2.5 mg if nephrology in agreement Will continue to follow peripherally, patient undecided on further evaluation with LHC, unable to do LHC until after permacath placement as will need to restart plavix. We will see and reevaluate patient at that time. If patient does decide on LHC, she will need to be premedicated as she has a history of allergy to dye. (2) CHF (congestive heart failure) Current Visit: Yes Status: Acute History of reduced ejection fraction heart failure ECHO: LVEF 25-30%, severe global and segmental LV systolic dysfunction and moderate concentric LV hypertrophy. Mild tricuspid and pulmonic dysfunction ECHO is unchanged from prior done 03/23/18. Clinically, not fluid overloaded Continue hemodialysis Continue lopressor, simvastatin, start aspirin, recommend 2.5 mg lisinopril if nephrology agrees Qualifiers: Heart failure type: combined systolic and diastolic Heart failure chronicity: chronic Qualified Code(s): I50.42 - Chronic combined systolic (congestive) and diastolic (congestive) heart failure (3) Coronary artery disease Current Visit: Yes Status: Acute History of CAD, s/p stenting to LAD in 2002 Home medications: plavix, imdur, simvastatin Plavix currently on hold as permacath pending Unclear reason why she is not on aspirin, however will start aspirin now as plavix on hold Unclear reason why she is not on acei/arb Recommend starting lisinopril 2.5 mg qd if nephrology is in agreement Qualifiers: Coronary Disease-Associated Artery/Lesion type: [place] artery [place] vs. transplanted heart: [place] heart Associated angina: without angina Qualified Code(s): I25.10 - Atherosclerotic heart disease of [place] coronary artery without angina pectoris (4) Hypertension Current Visit: Yes Status: Chronic History of hypertension Continue lopressor Qualifiers: Hypertension type: renovascular hypertension Qualified Code(s): I15.0 - Renovascular hypertension (5) ESRD (end stage renal disease) Current Visit: Yes Status: Chronic History of non compliance with peritoneal dialysis Has now been transitioned to hemodialysis with temporary catheter Plavix on hold for 5 day duration before permacath can be placed, believe it will be placed on Saturday As unable to take plavix until after permacath is placed, will have patient consider LHC which will have to be done after permacath placed in order to restart plavix at that time Continue hemodialysis- managment per nephrology (6) Anemia in chronic kidney disease (CKD) Current Visit: Yes Status: Acute History of anemia secondary to chronic kidney disease S/P 2 units PRBCs Continue to monitor Qualifiers: Chronic kidney disease stage: on chronic dialysis Qualified Code(s): N18.6 - End stage renal disease; D63.1 - Anemia in chronic kidney disease; Z99.2 - Dependence on renal dialysis (7) DVT prophylaxis Current Visit: Yes Status: Acute Heparin drip Discussion w patient/family: The assessment and plan as outlined above was discussed with the patient and/or family members who expressed understanding and agreement. All questions were answered. Thank you for involving us in the care of your patient. Please call with any questions. History of Present Illness Consult date: 03/17/19 Consult reason: Elevated troponins Chief complaint: Uremia History of present illness: Ms. Austin is a 73 year old female who presented several days ago from cashier host/hostess office due to concern for uremia. She has a past medical history o f CAD s/p stenting to LAD in 2002 on plavix, Type A aortic dissection which occurred in 2004, ESRD with non compliance of peritoneal dialysis, heart failure with reduced ejection fraction of 25-30%, HTN, ESRD, and anemia. Upon presentation, she had hyperkalemia, hyperphosphatemia, anion gap metabolic acidosis, leukocytosis, anemia and elevated troponins. She was not a candidate upon presentation for [facility] for further evaluation of elevated troponins. She has been transitioned from peritoneal dialysis to hemodialysis and currently has triple lumen temporary dialysis catheter in [facility]. She has her plavix held in order to do permacath placement possibly on Saturday. She states that she will think about LHC and will discuss it further with daughter. If she decides to have LHC then it must be after permacath placement as she will need to be back on plavix if any intervention is performed. She states that she is doing well today. She states that she is no longer feeling weak and denies chest pain during presentation or while hospitalized. She denies nausea, vomiting, fever, chills, dysphagia, chest pain, palpitations, orthopnea, shortness of breath, cough, pleuritic pain, abdominal pain, diarrhea, constipation, melena, hematochezia, dysuria, hematuria, calf pain, parasthesias, lightheadedness. Past Med Surg Social Fam HX - Past Medical History Medical history: hyperlipidemia, hypertension, renal disease, valvular heart disease, other Psychiatric history: no psych history - Past Surgical History Surgical History: cholecystectomy, other Additional surgical history: 13 years ago aortic heart surgery - Social History Smoking Status: Never smoker Smokeless Tobacco Status: No Alcohol use: none Drug use: none - Family History Father Hx Family Respiratory Disorders: Yes Sister Hx Family Respiratory Disorders: Yes Medications and Allergies Clopidogrel [Plavix] 75 mg PO DAILY 06/15/16 [History] Ergocalciferol (VITAMIN D2) [Vitamin D2 (50,000 UNIT)] 50,000 unit PO 3XW MDD mon, wed, fri 06/15/16 [History] Isosorbide MONOnitrate (24 HR) [Imdur] 60 mg PO DAILY 06/15/16 [History] Simvastatin [Zocor] 40 mg PO HS 06/15/16 [History] amLODIPine [Norvasc] 10 mg PO BID 06/15/16 [History] Calcitriol [Rocaltrol] 0.25 mcg PO DAILY 03/21/18 [History] Calcium Acetate [Phos-LO] 2 cap PO TID 03/21/18 [History] [place]-3/Dha/Epa/Fish Oil [Fish Oil 1,000 mg Softgel] 1 cap PO TID 03/21/18 [ History] Sodium Bicarbonate 1,300 mg PO BID 03/21/18 [History] hydrALAZINE [HydrALAZINE] 25 mg PO BID 03/21/18 [History] Magnesium Oxide [Mag-Ox] 400 mg PO BID 7 Days #14 tablet 03/24/18 [Rx] Ascorbate Calcium [Vitamin C] 500 mg PO DAILY 03/14/19 [History] Furosemide [Lasix] 40 mg PO 4XW 03/14/19 [History] Allergy/AdvReac Type Severity Reaction Status Date / Time Iodinated Contrast- Oral and AdvReac Nausea Verified 03/21/18 14:52 IV Dye All Systems Review: The remainder of the systems were reviewed and are negative - Constitutional Constitutional: no chills, no fatigue, no fever(s), no frequent falls, no weakness - EENT Eyes: no blurred vision Nose, mouth and throat: no dysphagia - Cardiovascular Cardiovascular: no chest pain at rest, no chest pain with exertion, no diaphoresis, no dyspnea at rest, no dyspnea on exertion, no leg edema, no lightheadedness, no orthopnea, no palpitations - Respiratory Respiratory: no cough, no dyspnea - Gastrointestinal Gastrointestinal: no abdominal pain, no constipation, no diarrhea, no hematochezia, no melena, no nausea - Genitourinary Genitourinary: no dysuria, no hematuria - Musculoskeletal Musculoskeletal: no arthralgias, no myalgias - Integumentary Integumentary: no erythema, no rash - Neurological Neurological: no dizziness, no focal weakness, no numbness, no syncope - Psychiatric Psychiatric: no anxiety, no depression - Hematological/Lymphatic Hematologic/Lymphatic: easy bleeding, easy bruising Physical Examination Vital Signs, Last 4 Hours Temp Pulse Resp BP Pulse Ox 03/17/19 11:00 98.0 F 75 16 115/73 93 03/17/19 09:35 90 General: Conversant, No Apparent Distress HEENT: Atraumatic, Normocephaly, Mucus Membranes Moist Neck: No JVD, Normal carotid pulses Cardiac: Reg Rate and Rhythm, Normal S1 and S2, No Murmur Lungs: No Wheeze, Rales, Rhonchi, Other (diminished breath sounds bilaterally) Neuro: Alert and responsive, No focal deficits noted Abdomen: Soft, Non-Tender Skin: Other (eccymosis noted on extremities, no bleeding) Musculoskeletal: No Chest Wall Tenderness Extremities: No Clubbing, No Cyanosis, No Edema, Normal Pulses Results 03/17/19 04:10 03/17/19 04:10 Lab Results 03/17/19 03/17/19 04:10 04:10 WBC 16.1 H Hgb 10.4 L Hct 32.6 L Plt Count 214 Sodium 135 L Potassium 4.5 Chloride 99 Carbon Dioxide 28 BUN 46 H Creatinine 4.33 H Glucose 108 H Calcium 8.2 L Consult Discharge Plan - Plan Referrals: Fausto Gao DO [Primary Care Provider] - <Ben Soriano - Last Filed: 03/17/19 14:53> Date of Encounter: 03/17/19 - Attending Attestation Patient was seen and evaluated independently by me. Findings, assessment and plan were discussed at length with patient, questions answered. Agree with nurse practitioner's/resident's documentation. Addition as follows, 73 yoCF ho LAD stent 2002, type A aortic dissection repair 2004, ESRD non- complaint with PD, HFrEF, HTN. P/w weakness. IMP TX, trop up 5s, ECG anteroseptal and lateral TX, TTE EF 25-30% with anteroseptal WMA. Pt refused LHC initially. After starting HD, pt is open for LHC now. No chest pain, O2 requirement, BP ok, CTA, RR, no LE edema. Leukocytosis, chronic naemia Plan for tunneled HD catheter (Saturday) and plavix held. Ho iodinated contrast allergy. A: Subacute TX, regional WMA HFrEF EF 25-30% close to euvolemia CAD remote LAD stent ESRD on HD via temp HD catheter Iodinated contrast allergy Ho type A Ao dissection repair P: - Discussed with pt regarding LHC with possible PCI after placement of tunneled HD catheter, pt agreeable to plan. - Please contact cardiology consult team again when HD catheter in place and can be placed back on plavix. - Will need pre-medication for IVP contrast allergy prior to LHC - Start ASA 81, c/w heparin drip - Resume plavix after HD catheter placement - Start lisinopril 2.5 if ok from nephrology - c/w BB Ben Soriano MD, PhD Assessment and Plan Discussion w patient/family: The assessment and plan as outlined above was discussed with the patient and/or family members who expressed understanding and agreement. All questions were answered. Thank you for involving us in the care of your patient. Please call with any questions. History of Present Illness History of present illness: Ms. Austin is a 73 year old female All Systems Review: The remainder of the systems were reviewed and are negative Physical Examination Vital Signs, Last 4 Hours Temp Pulse Resp BP Pulse Ox 03/17/19 11:00 98.0 F 75 16 115/73 93 Results 03/17/19 04:10 03/17/19 04:10 Lab Results 03/17/19 03/17/19 04:10 04:10 WBC 16.1 H Hgb 10.4 L Hct 32.6 L Plt Count 214 Sodium 135 L Potassium 4.5 Chloride 99 Carbon Dioxide 28 BUN 46 H Creatinine 4.33 H Glucose 108 H Calcium 8.2 L
[2019-03-17] MEDS: Aspirin 81 MG TAB.CHEW PO SCH (15:25)
[2019-03-17] MEDS: *HR* Promethazine 25 MG/ML VIAL IVP PRN (20:21)
--- NOTE | 2019-03-17 23:23 | Internal Med Progress Note ---
Hospitalist Progress Note - Encounter Date of Encounter: 03/17/19 Time of Encounter: 19:00 - Subjective Interval History: SUBJECTIVE: I found this patient sitting next to her bed today afternoon. She feels good. Denies chest pain and difficulty breathing. Her last hemodialysis her heparin therapy yesterday. She has had total of 3. She was transfused with 2 units of regular blood cells the day before yesterday. OBJECTIVE: Skin: Free of rash and discoloration. ENMT: Oral/pharyngeal mucosa is normal in appearance. Eyes: Sclera is white. There is no discharge from eyes. Respiratory: Normal breath sounds; no crackles or wheezes. CV: Heart is regular; no gallop or murmur. GI: Abdomen is soft and not tender. There is no palpable mass or visceromegaly. Neuro: There is no focal deficits. The patients attention span is good today. ADDITIONAL DATA: Echocardiogram from 03/13 showed ejection fraction of 25-30% with severe global and segmental left ventricular systolic dysfunction. She has moderate concentric left ventricular hypertrophy suggesting underlying diastolic dysfunction. The patient had elevated troponins at admission. They were 5.73, 5.47 and 4.42, 3.51 and 2.93. They may represent NSTEMI. They may be elevated due to alicja estive heart failure with end-stage renal disease/metabolic acidosis. Hemoglobin is 10.4; 10.1 yesterday. WBC 16.1 thousand; 15.8 thousand yesterday. Her electrolyte are normal. Creatinine 4.33. Calcium is 8.2. ASSESSMENT AND PLAN: End-stage renal disease/uremic syndrome. Failed treatment at home with peritoneal dialysis. Has underlying severe systolic heart failure (likely ischemic cardiomyopathy). His elevated troponins is due to CHF/ESRD/metabolic acidosis with likely superimposed NSTEMI. To continue hemodialysis, as ordered by renal service. I will keep her on IV heparin. She is on Lopressor and Zocor. Her Plavix is on hold due to pending permacath insertion. Cardiology consult has been obtained. They will reevaluate this patient after permacath placement. Dysphagia. Evaluated by speech therapy. The patient is on cardiac/renal diet Anemia. Secondary to end-stage renal disease. She received 2 units of packed red blood cells. There is no evidence for GI bleeding at this time. xxx. Her permacath will be likely inserted on Saturday. - Exam Vitals: Temp Pulse Resp BP Pulse Ox 98.9 F 82 16 121/78 93 03/17/19 19:36 03/17/19 19:36 03/17/19 19:36 03/17/19 19:36 03/17/19 20:25 Exam: xx - Assessment and Plan (1) Uremia Current Visit: Yes Status: Resolved (2) ESRD on peritoneal dialysis Current Visit: No Status: Chronic (3) Hypertensive renal disease with renal failure Current Visit: Yes Status: Chronic (4) Chronic systolic heart failure Current Visit: Yes Status: Chronic (5) Elevated troponin Current Visit: Yes Status: Acute (6) Ischemic cardiomyopathy Current Visit: Yes Status: Acute (7) Dysphagia Current Visit: Yes Status: Acute (8) Debility Current Visit: Yes Status: Acute - Time Spent with Patient Total time spent is greater than 50% in coordination of care (as documented) at patient's floor/unit and/or counseling patient: 25 - 35 minutes Plan of Care Discussed with: patient Internal Medicine: Result - Labs CBC & Chem 7: 03/17/19 04:10 03/17/19 04:10 Labs: Short CBC 03/17/19 Range/Units 04:10 WBC 16.1 H (4.3-11.1) K/mcL Hgb 10.4 L (11.5-15.4) g/dL Hct 32.6 L (35.3-44.9) % Plt Count 214 (140-400) K/mcL BMP 03/17/19 04:10 Sodium 135 L Potassium 4.5 Chloride 99 Carbon Dioxide 28 BUN 46 H Creatinine 4.33 H Glucose 108 H Calcium 8.2 L - ABG Interpretation ABG results: PT/INR, D-dimer PT 14.0 Seconds (9.4-12.1) H 03/12/19 20:30 Consult Discharge Plan - Plan Referrals: Fausto Gao DO [Primary Care Provider] -
[2019-03-18] MEDS: Heparin 25,000 UNIT/250 ML D5W 25,000 UNIT/250 ML IV.SOLN IVC SCH (03:22)
[2019-03-18 04:09] LABS: Hematocrit 31.4 % (35.3-44.9); Hemoglobin 9.9 g/dL (11.5-15.4); Mean Corpuscular HGB Conc 31.5 g/dL (31.6-35.5); Mean Corpuscular Hemoglobin 29.6 pg (28.0-33.3); Mean Platelet Volume 10.2 fL (9.4-12.4); Platelet Count 214 K/mcL (140-400); Red Blood Count 3.34 M/mcL (3.82-4.97); Red Cell Distribution Width 14.7 % (11.5-14.5)
[2019-03-18 04:13] LABS: Calcium 8.5 mg/dL (8.6-10.3); Potassium 5.3 mEq/L (3.5-5.1)
[2019-03-18] MEDS ORDERED: 0.9 % Sodium Chloride 250 ML IVC PRN (07:00)
--- NOTE | 2019-03-18 07:03 | Nephrology Progress Note ---
Date of Encounter: 03/18/19 Time of Encounter: 09:30 - Assessment and Plan (1) ESRD (end stage renal disease) Current Visit: Yes Status: Chronic HD today (Saturday). Next HD planned for Saturday. Awaiting 5 days after the last dose of Plavix is given (see my addendum from yesterday to hold the Plavix, if able), which is the [facility] protocol to then allow for placement of a Permacath. Awaiting SW to help with HD chair assignment. Will flush the PD catheter (with Cell count/diff and Cx) I will be available tomorrow if needed, but I will plan to see her every MWF for her dialysis. Thank you. (2) Uremia Current Visit: Yes Status: Resolved (3) Hypertension Current Visit: Yes Status: Chronic Qualifiers: Hypertension type: renovascular hypertension Qualified Code(s): I15.0 - Renovascular hypertension (4) Hypokalemia Current Visit: Yes Status: Acute (5) Anemia Current Visit: Yes Status: Acute Qualifiers: Anemia type: unspecified type Qualified Code(s): D64.9 - Anemia, unspecified Subjective Principal diagnosis: ESRD, Switching from PD to HD Interval history: The patient was seen and examined while on HD. She affirmed having mild nausea but has been able to eat and drink, she said. Objective - Vital Signs Vital signs: Vital Signs Temp Pulse Resp BP Pulse Ox 03/18/19 04:09 98 F 87 16 109/68 92 03/17/19 23:39 98.7 F 77 16 126/77 94 03/17/19 20:25 93 03/17/19 19:36 98.9 F 82 16 121/78 93 03/17/19 15:21 98.1 F 85 16 122/78 94 03/17/19 11:00 98.0 F 75 16 115/73 93 03/17/19 09:35 90 Intake and Output 03/17/19 03/17/19 03/18/19 15:59 23:59 07:59 Intake Total 540 / 540 290 / 290 320 / 320 Output Total 100 / 100 Balance 440 / 440 290 / 290 320 / 320 Intake: IV Fluids 50 / 50 200 / 200 Heparin 25,000 UNIT/250 ML D5W 50 / 50 200 / 200 25,000 unit In 250 ml @ 12 UNIT /KG/HR 6.389 mls/hr IVC .Q24H SRUTHI Rx#:[id number] Oral 540 / 540 240 / 240 120 / 120 Output: Urine 100 / 100 Other: Meal Lunch Dinner Percent of Meal Consumed 25% 60% # Voids 1 1 Weight 57.8 kg - General Appearance Exam: General appearance: Present: well-nourished, appears started age EENT: Present: ATNC, PERRL, mucous membranes moist Neck: Present: supple Respiratory: Present: rhonchi Cardiology: Present: edema (trace pedal edema b/l), regular rate, normal S1, normal S2 Dialysis Vascular Access: Venous Catheter (Rt IJ temporary HD catheter with trace bleeding at exit site) Gastrointestinal: Present: normoactive bowel sounds, no guarding Additional Comments: LLQ PD catheter without pt complaint of tenderness Integumentary: Present: warm and dry Neurologic: Present: no focal deficit, no asterixis, alert and oriented x3 Musculoskeletal: Present: no erythema, no cyanosis Psychiatric: Present: mood/affect appropriate, cooperative - Lab 03/18/19 03:40 03/18/19 03:40 Most recent lab results Calcium 8.5 mg/dL (8.6-10.3) L 03/18/19 03:40 Phosphorus 10.8 mg/dL (2.7-4.5) H 03/13/19 03:55 Magnesium 1.8 mg/dL (1.6-2.6) 03/13/19 03:55 Consult Discharge Plan - Plan Referrals: Fausto Gao DO [Primary Care Provider] -
[2019-03-18] MEDS: Folic Acid 1 MG TABLET PO SCH (08:33)
[2019-03-18] MEDS: Aspirin 81 MG TAB.CHEW PO SCH (08:33)
[2019-03-18] MEDS ORDERED: 0.9 % Sodium Chloride 1,000 ML ONE (09:13)
[2019-03-18] MEDS: *HR* Promethazine 25 MG/ML VIAL IVP PRN (09:15)
--- NOTE | 2019-03-18 13:00 | Internal Med Progress Note ---
Hospitalist Progress Note - Encounter Date of Encounter: 03/18/19 Time of Encounter: 10:45 - Subjective Interval History: Evaluated patient during hemodialysis. She was lying down in bed. Complains of feeling hungry. Denies any fevers or chills overnight. Does have some cough. No nausea or vomiting. - Exam Vitals: Temp Pulse Resp BP Pulse Ox 98.3 F 88 22 139/88 91 03/18/19 12:54 03/18/19 07:05 03/18/19 12:54 03/18/19 12:54 03/18/19 07:05 Exam: General: Patient is alert, mild distress, oriented x 2 ENT: Mucous membranes moist Respiratory: Decreased breath sounds at both bases Cardiovascular: Regular rate and rhythm. s1 and s2 normal No clicks, rubs, gallops, or murmurs. No pedal edema Abdomen: Abdomen is soft, nontender. Bowel sounds are present Musculoskeletal: Spontaneously moving all extremities Skin: warm, dry, intact. Neuro: Alert oriented x 2 normal cranial nerves, no focal deficits - Assessment and Plan (1) ESRD on peritoneal dialysis Current Visit: Yes Status: Chronic Assessment and Plan: Patient was previously on peritoneal dialysis but has now been switched to hemodialysis. She is currently getting dialysis through a temporary dialysis catheter. Plan is to place a permanent dialysis catheter on Saturday 5 days since last dose of Plavix. (2) Elevated troponin Current Visit: Yes Status: Acute Assessment and Plan: evaluated by cardiology. Recommend left heart catheterization after permanent catheter for dialysis has been placed so that patient can be placed back on Plavix. On IV heparin per cardiology recommendations. (3) Uremia Current Visit: Yes Status: Resolved Assessment and Plan: Improving. Due to failed peritoneal dialysis as outpatient (4) Hypertensive renal disease with renal failure Current Visit: Yes Status: Chronic Assessment and Plan: Blood pressure remains elevated intermittently. Continue metoprolol. Recommended by cardiology and will start this medication. will start lisinopril at low-dose. (5) Chronic systolic heart failure Current Visit: Yes Status: Chronic Assessment and Plan: Volume management to hemodialysis. Echocardiogram shows 25-30% EF with severe global and segmental LV systolic dysfunction. Cardiology following. Plan to do cardiac catheterization after permanent dialysis catheter has been placed. (6) Ischemic cardiomyopathy Current Visit: Yes Status: Acute Assessment and Plan: Plavix on hold currently. Continue aspirin. (7) Dysphagia Current Visit: Yes Status: Acute Assessment and Plan: Evaluated by speech therapy. Evaluated by speech therapy. Diet adjusted according to the recommendations. (8) Debility Current Visit: Yes Status: Acute Assessment and Plan: Recommended placement to skilled rehabilitation by physical therapy. However patient adamantly does not want to go to [facility]. She does not want home health either. DVT Prophylaxis: Patient currently on IV heparin - Time Spent with Patient Total time spent is greater than 50% in coordination of care (as documented) at patient's floor/unit and/or counseling patient: Internal Medicine: Result - Labs CBC & Chem 7: 03/18/19 03:40 03/18/19 03:40 Labs: Short CBC 03/18/19 Range/Units 03:40 WBC 16.4 H (4.3-11.1) K/mcL Hgb 9.9 L (11.5-15.4) g/dL Hct 31.4 L (35.3-44.9) % Plt Count 214 (140-400) K/mcL BMP 03/18/19 03:40 Sodium 135 L Potassium 5.3 H Chloride 98 Carbon Dioxide 28 BUN 54 H Creatinine 5.37 H Glucose 96 Calcium 8.5 L - ABG Interpretation ABG results: PT/INR, D-dimer PT 14.0 Seconds (9.4-12.1) H 03/12/19 20:30 Consult Discharge Plan - Plan Referrals: Fausto Gao DO [Primary Care Provider] - __ (7) Dysphagia Qualifiers: Dysphagia type: oropharyngeal phase Qualified Code(s): R13.12 - Dysphagia, oropharyngeal phase
[2019-03-18] MEDS: Isosorbide MONOnitrate (24 HR) 30 MG TAB.ER.24H PO SCH (13:42)
[2019-03-18] MEDS: Perit. Dialysis with Dex 1.5 % 2,000 ML PERITONEAL SCH ×3 (13:43→20:29)
[2019-03-18] MEDS: Ondansetron 4 MG/2 ML VIAL IVP PRN (13:55)
[2019-03-18 15:42] LABS: Appearance of Body Fluid Hazy (Clear); Volume of Body Fluid 15 mL
[2019-03-18] MEDS ORDERED: Levofloxacin 750 MG/150 ML 750 MG/150 ML BAG IVPB ONE (17:30)
[2019-03-18] MEDS ORDERED: OXYCODONE Oral CONC 10 MG/0.5 ML ORAL.SYG SL ONE (17:36)
[2019-03-18] MEDS ORDERED: Vancomycin 0 MG in 0.9 % Sodium Chloride 250 ML IVPB SCH (18:00)
[2019-03-19] MEDS: Heparin 25,000 UNIT/250 ML D5W 25,000 UNIT/250 ML IV.SOLN IVC SCH (01:29)
[2019-03-19 04:40] LABS: Hematocrit 34.8 % (35.3-44.9); Hemoglobin 10.5 g/dL (11.5-15.4); Mean Corpuscular HGB Conc 30.2 g/dL (31.6-35.5); Mean Corpuscular Hemoglobin 29.5 pg (28.0-33.3); Mean Corpuscular Volume 97.8 fL (83.0-100.0); Mean Platelet Volume 10.4 fL (9.4-12.4); Platelet Count 199 K/mcL (140-400); Red Blood Count 3.56 M/mcL (3.82-4.97); Red Cell Distribution Width 14.8 % (11.5-14.5)
[2019-03-19 04:58] LABS: Calcium 8.1 mg/dL (8.6-10.3)
[2019-03-19] MEDS: Perit. Dialysis with Dex 1.5 % 2,000 ML PERITONEAL SCH ×3 (05:41→20:43)
[2019-03-19] MEDS: Folic Acid 1 MG TABLET PO SCH (08:35)
[2019-03-19] MEDS: Aspirin 81 MG TAB.CHEW PO SCH (08:36)
[2019-03-19] MEDS: Isosorbide MONOnitrate (24 HR) 30 MG TAB.ER.24H PO SCH (08:36)
[2019-03-19] MEDS: Piperacillin/Tazobactam 3.375 GM in 0.9 % Sodium Chloride Mini Bag 100 ML IVPB SCH ×2 (08:37→17:15)
[2019-03-19] MEDS ORDERED: Vancomycin 500 MG in 0.9 % Sodium Chloride Mini Bag 100 ML IVPB ONE (08:44)
[2019-03-19] MEDS ORDERED: Vancomycin 1 EACH in EMPTY BAG 1 EACH IVPB SCH ×2 (09:00→23:44)
[2019-03-19] MEDS ORDERED: Isovue-370 500 ML BOTTLE IVP ONE (11:01)
--- NOTE | 2019-03-19 11:49 | Nephrology Progress Note ---
Date of Encounter: 03/19/19 Time of Encounter: 11:30 - Assessment and Plan (1) ESRD (end stage renal disease) Current Visit: Yes Status: Chronic She was converted to Hemodialyis earlier in this admission due to very poor compliance with PD prior to arrival. I was going to request an outpt PD catheter removal, but now that she has developed a Leukocytosis of unclear source, yesterday I screened her PD catheter for cell count w/diff plus PD fluid culture, and the Preliminary PD fluid culture has already started to grow GPC. Therefore, she will need her infection treated (agree with broad spectrum systemic antibiotics) with source control (i.e., removal of the PD catheter). After this and likely next week, then I'll request IR to have a Permacath placed (she currently has a temporary / non- tunneled HD catheter). I spoke with the Hospitalist and Acute Care Surgery; I've made her NPO. Appreciate Surgery. My colleague Dr. Hamilton will be on-call tomorrow, and I've already ordered her standard HD treatment for tomorrow as well. Thank you. (2) Uremia Current Visit: Yes Status: Resolved (3) Hypertension Current Visit: Yes Status: Chronic Qualifiers: Hypertension type: renovascular hypertension Qualified Code(s): I15.0 - Renovascular hypertension (4) Hypokalemia Current Visit: Yes Status: Acute (5) Anemia Current Visit: Yes Status: Acute Qualifiers: Anemia type: unspecified type Qualified Code(s): D64.9 - Anemia, unspecified (6) PD catheter dysfunction Current Visit: Yes Status: Acute Infected. Recommend removal. She will not be remaining on PD d/t very poor self-care/compliance with PD, so I recommend systemic Abx instead of intraperitoneal Abx. Qualifiers: Encounter type: initial encounter Qualified Code(s): T85.611A - Breakdown (mechanical) of intraperitoneal dialysis catheter, initial encounter Subjective Principal diagnosis: ESRD, Switching from PD to HD Interval history: The patient was seen and examined while on HD. She affirmed having mild nausea but has been able to eat and drink, she said. Objective - Vital Signs Vital signs: Vital Signs Temp Pulse Resp BP Pulse Ox 03/19/19 09:10 98.7 F 85 14 99/62 98 03/19/19 08:35 99.7 F H 93 15 105/66 91 03/19/19 03:15 98.9 F 73 16 99/59 97 03/18/19 23:54 99.2 F 81 16 100/61 98 03/18/19 23:50 104 24 106/60 92 03/18/19 19:09 99.5 F 100 15 96/58 90 03/18/19 15:44 98.2 F 90 19 131/83 91 03/18/19 12:54 98.3 F 22 139/88 03/18/19 12:20 98.3 F 22 145/96 03/18/19 12:05 161/97 03/18/19 11:50 158/95 Intake and Output 03/18/19 03/19/19 03/19/19 23:59 07:59 15:59 Intake Total 170 / 170 80 / 80 380 / 380 Output Total 0 / 0 Balance 170 / 170 80 / 80 380 / 380 Intake: IV Fluids 170 / 170 80 / 80 Heparin 25,000 UNIT/250 ML D5W 170 / 170 80 / 80 25,000 unit In 250 ml @ 12 UNIT /KG/HR 6.389 mls/hr IVC .Q24H SRUTHI Rx#:[id number] Oral 380 / 380 Output: Urine 0 / 0 Other: Meal Breakfast Percent of Meal Consumed 40% Weight 57 kg - General Appearance General appearance: Present: appears started age, chronically ill, fatigue, frail EENT: Present: ATNC, PERRL, mucous membranes moist Neck: Present: supple Respiratory: Present: clear Cardiology: Present: edema (trace to 1+ pretibial edema), normal S1, normal S2 Dialysis Vascular Access: Venous Catheter (RIJ temporary HD catheter; PD catheter exitsite without erythema or tenderness to palpation) Integumentary: Present: chronic venous stasis Neurologic: Present: no focal deficit, no asterixis, alert and oriented x3 Musculoskeletal: Present: no cyanosis, no clubbing Psychiatric: Present: depressed, cooperative - Lab 03/19/19 04:02 03/19/19 04:02 Most recent lab results Calcium 8.1 mg/dL (8.6-10.3) L 03/19/19 04:02 Phosphorus 10.8 mg/dL (2.7-4.5) H 03/13/19 03:55 Magnesium 1.8 mg/dL (1.6-2.6) 03/13/19 03:55 Consult Discharge Plan - Plan Referrals: Fausto Gao DO [Primary Care Provider] -
--- NOTE | 2019-03-19 12:24 | AcuteCare Surgery Consult Note ---
Date of Encounter: 03/19/19 Time of Encounter: 12:15 Assessment and Plan (1) Peritoneal dialysis catheter infection Current Visit: Yes Status: Acute The patient has persistent leukocytosis. Removal of the peritoneal dialysis catheter is requested. We will proceed later today. I discussed the risks and benefits with the patient and her family. Qualifiers: Encounter type: initial encounter Qualified Code(s): T85.71XA - Infection and inflammatory reaction due to peritoneal dialysis catheter, initial encounter History of Present Illness Consult date: 03/19/19 Reason for consult: other (Infected peritoneal dialysis catheter) Requesting physician: Charly Cowan History of present illness: The patient had peritoneal dialysis catheter placed in 2016. She now presents with persistent leukocytosis. Removal of the peritoneal dialysis catheter is requested. I reviewed the records from Dr. Lock who placed the catheter in 2015. We will plan on peritoneal dialysis catheter removal and culture later today. The patient is made nothing by mouth. Past Med Surg Social Fam HX - Past Medical History Medical history: hyperlipidemia, hypertension, renal disease, valvular heart disease, other Psychiatric history: no psych history - Past Surgical History Surgical History: cholecystectomy, other Additional surgical history: 13 years ago aortic heart surgery - Social History Smoking Status: Never smoker Smokeless Tobacco Status: No Alcohol use: none Drug use: none - Family History Father Hx Family Respiratory Disorders: Yes Sister Hx Family Respiratory Disorders: Yes Medications and Allergies Clopidogrel [Plavix] 75 mg PO DAILY 06/15/16 [History] Ergocalciferol (VITAMIN D2) [Vitamin D2 (50,000 UNIT)] 50,000 unit PO 3XW MDD mon, wed, fri 06/15/16 [History] Isosorbide MONOnitrate (24 HR) [Imdur] 60 mg PO DAILY 06/15/16 [History] Simvastatin [Zocor] 40 mg PO HS 06/15/16 [History] amLODIPine [Norvasc] 10 mg PO BID 06/15/16 [History] Calcitriol [Rocaltrol] 0.25 mcg PO DAILY 03/21/18 [History] Calcium Acetate [Phos-LO] 2 cap PO TID 03/21/18 [History] [place]-3/Dha/Epa/Fish Oil [Fish Oil 1,000 mg Softgel] 1 cap PO TID 03/21/18 [History] Sodium Bicarbonate 1,300 mg PO BID 03/21/18 [History] hydrALAZINE [HydrALAZINE] 25 mg PO BID 03/21/18 [History] Magnesium Oxide [Mag-Ox] 400 mg PO BID 7 Days #14 tablet 03/24/18 [Rx] Ascorbate Calcium [Vitamin C] 500 mg PO DAILY 03/14/19 [History] Furosemide [Lasix] 40 mg PO 4XW 03/14/19 [History] Allergy/AdvReac Type Severity Reaction Status Date / Time Iodinated Contrast- Oral and AdvReac Nausea Verified 03/21/18 14:52 IV Dye Review of Systems All systems PM: The remainder of the systems were reviewed and are negative General Surgery Exam Initial Vital Signs Temp Pulse Resp BP Pulse Ox 97.9 F 102 16 116/69 92 03/12/19 16:07 03/12/19 16:07 03/12/19 16:07 03/12/19 16:07 03/12/19 16:07 - General physical appearance well developed, well nourished, no distress, chronically ill - Respiratory normal expansion, normal respiratory effort, clear to percussion, clear to auscultation - Cardiovascular Cardiovascular exam: Present: RRR, no murmurs/rubs/gallops - Abdomen Abdomen general surgery: Present: bowel sounds present (Peritoneal dialysis catheters in place. There is no evidence of cellulitis in the midline or at the exit site), soft, non tender - Integumentary Integumentary general surgery: Present: warm and dry, no abnormal pigmentation - Neurologic Present: CN 2-12 grossly intact, normal coordination, normal sensation - Psychiatric Psychiatric general surgery: Present: appropriate, oriented to person, oriented to place, oriented to time, speech is normal, memory intact Exam Initial Vital Signs Temp Pulse Resp BP Pulse Ox 97.9 F 102 16 116/69 92 03/12/19 16:07 03/12/19 16:07 03/12/19 16:07 03/12/19 16:07 03/12/19 16:07 Results - Labs 03/19/19 04:02 03/19/19 04:02 Abnormal lab results WBC 23.5 K/mcL (4.3-11.1) H 03/19/19 04:02 RBC 3.56 M/mcL (3.82-4.97) L 03/19/19 04:02 Hgb 10.5 g/dL (11.5-15.4) L 03/19/19 04:02 Hct 34.8 % (35.3-44.9) L 03/19/19 04:02 MCHC 30.2 g/dL (31.6-35.5) L 03/19/19 04:02 RDW 14.8 % (11.5-14.5) H 03/19/19 04:02 Neutrophils # 10.6 K/mcL (1.6-8.9) H 03/14/19 01:15 Lymphocytes # 0.3 K/mcL (0.6-4.6) L 03/14/19 01:15 PT 14.0 Seconds (9.4-12.1) H 03/12/19 20:30 VBG pH 7.02 pH Units (7.32-7.42) L* 03/12/19 20:47 VBG pCO2 22 mmHg (41-51) L 03/12/19 20:47 VBG pO2 141 mmHg (25-50) H 03/12/19 20:47 VBG HCO3 6 mEq/L (21-27) L 03/12/19 20:47 Chloride 96 mEq/L (98-107) L 03/19/19 04:02 Carbon Dioxide 30 mEq/L (23-29) H 03/19/19 04:02 BUN 27 mg/dL (8-23) H 03/19/19 04:02 Creatinine 3.39 mg/dL (0.60-1.20) H 03/19/19 04:02 Est GFR ( Amer) 16 (> 60) L 03/19/19 04:02 Est GFR (Non-Af Amer) 13 (> 60) L 03/19/19 04:02 Glucose 117 mg/dL (70-105) H 03/19/19 04:02 Calcium 8.1 mg/dL (8.6-10.3) L 03/19/19 04:02 Phosphorus 10.8 mg/dL (2.7-4.5) H 03/13/19 03:55 % Saturation 74 % (15-50) H 03/13/19 03:55 Transferrin 79 mg/dL (203-362) L 03/13/19 03:55 Ferritin > 1500 ng/mL (10-120) H 03/13/19 03:55 Alkaline Phosphatase 146 Units/L (34-104) H 03/12/19 16:38 Troponin I 2.93 ng/mL (< 0.04) H* 03/15/19 00:14 B-Natriuretic Peptide 2110 pg/mL (Less than 100) H 03/12/19 16:38 Serum Total Protein 5.7 g/dL (6.4-8.9) L 03/12/19 16:38 Albumin 3.0 g/dL (3.5-5.7) L 03/12/19 16:38 Fluid Appearance Hazy (Clear) A 03/18/19 13:00 Hep Bs Antibody < 3.10 mIU/mL (10.00-) L 03/13/19 09:51 Diabetes panel 03/19/19 Range/Units 04:02 Sodium 140 (136-145) mEq/L Potassium 5.0 (3.5-5.1) mEq/L Chloride 96 L (98-107) mEq/L Carbon Dioxide 30 H (23-29) mEq/L BUN 27 H (8-23) mg/dL Creatinine 3.39 H (0.60-1.20) mg/dL Glucose 117 H (70-105) mg/dL Calcium 8.1 L (8.6-10.3) mg/dL Calcium panel 03/19/19 Range/Units 04:02 Calcium 8.1 L (8.6-10.3) mg/dL Pituitary panel 03/19/19 Range/Units 04:02 Sodium 140 (136-145) mEq/L Potassium 5.0 (3.5-5.1) mEq/L Chloride 96 L (98-107) mEq/L Carbon Dioxide 30 H (23-29) mEq/L BUN 27 H (8-23) mg/dL Creatinine 3.39 H (0.60-1.20) mg/dL Glucose 117 H (70-105) mg/dL Calcium 8.1 L (8.6-10.3) mg/dL Adrenal panel 03/19/19 Range/Units 04:02 Sodium 140 (136-145) mEq/L Potassium 5.0 (3.5-5.1) mEq/L Chloride 96 L (98-107) mEq/L Carbon Dioxide 30 H (23-29) mEq/L BUN 27 H (8-23) mg/dL Creatinine 3.39 H (0.60-1.20) mg/dL Glucose 117 H (70-105) mg/dL Calcium 8.1 L (8.6-10.3) mg/dL All other labs normal. Consult Discharge Plan - Plan Referrals: Fausto Gao DO [Primary Care Provider] -
[2019-03-19 13:37] LABS: INR 1.4
--- NOTE | 2019-03-19 16:33 | Cardiothoracic Consult Note ---
Date of Encounter: 03/19/19 Time of Encounter: 16:31 Assessment and Plan (1) Renal failure Current Visit: No Status: Chronic The assessment and plan as outlined above was discussed with the patient and/or family members who expressed understanding and agreement. All questions were answered. 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 This would require a open repair and would be high risk due to her numerous comorbidities. I discussed this with the patient and her daughter. This would need to be done after her acute problems are resolved and would need to be done possibly at [place] again or at [facility] or the [facility]. They are undecided and will consider. Qualifiers: Renal failure chronicity: acute on chronic Acute renal failure type: unspecified Chronic kidney disease stage: unspecified stage Qualified Code(s): N17.9 - Acute kidney failure, unspecified; N18.9 - Chronic kidney disease, unspecified; N18.9 - Chronic kidney disease, unspecified - History of Present Illness History of present illness: Ms. Austin is a 73 year old female The patient is a 73-year-old female who presented with an aortic dissection approximately 14 years ago. This was repaired at [facility] in [place] through a median sternotomy. For the last 2 years, she has had renal failure. She has been on peritoneal dialysis. She was admitted with anorexia and fatigue. She has been placed on hemodialysis and is due to have her peritoneal dialysis catheter removed today. She has a history of congestive heart failure and decreased ejection fraction. CT scan of the chest revealed a complex 8.8 cm aneurysm of the distal ascending aorta just proximal to the transverse arch. Past Med Surg Social Fam HX - Past Medical History Medical history: hyperlipidemia, hypertension, renal disease, valvular heart disease, other Psychiatric history: no psych history - Past Surgical History Surgical History: cholecystectomy, other Additional surgical history: 13 years ago aortic heart surgery - Social History Smoking Status: Never smoker Smokeless Tobacco Status: No Alcohol use: none Drug use: none - Family History Father Hx Family Respiratory Disorders: Yes Sister Hx Family Respiratory Disorders: Yes Medications and Allergies Clopidogrel [Plavix] 75 mg PO DAILY 06/15/16 [History] Ergocalciferol (VITAMIN D2) [Vitamin D2 (50,000 UNIT)] 50,000 unit PO 3XW MDD mon, wed, fri 06/15/16 [History] Isosorbide MONOnitrate (24 HR) [Imdur] 60 mg PO DAILY 06/15/16 [History] Simvastatin [Zocor] 40 mg PO HS 06/15/16 [History] amLODIPine [Norvasc] 10 mg PO BID 06/15/16 [History] Calcitriol [Rocaltrol] 0.25 mcg PO DAILY 03/21/18 [History] Calcium Acetate [Phos-LO] 2 cap PO TID 03/21/18 [History] [place]-3/Dha/Epa/Fish Oil [Fish Oil 1,000 mg Softgel] 1 cap PO TID 03/21/18 [History] Sodium Bicarbonate 1,300 mg PO BID 03/21/18 [History] hydrALAZINE [HydrALAZINE] 25 mg PO BID 03/21/18 [History] Magnesium Oxide [Mag-Ox] 400 mg PO BID 7 Days #14 tablet 03/24/18 [Rx] Ascorbate Calcium [Vitamin C] 500 mg PO DAILY 03/14/19 [History] Furosemide [Lasix] 40 mg PO 4XW 03/14/19 [History] Allergy/AdvReac Type Severity Reaction Status Date / Time Iodinated Contrast- Oral and AdvReac Nausea Verified 03/21/18 14:52 IV Dye All Systems Review: The remainder of the systems were reviewed and are negative Physical Examination Pupils are equal, round and reactive to light and accommodation. No oral lesions. Neck is supple. Trachea in the midline. No thyromegaly or carotid bruits. Lungs are clear to percussion and auscultation. Heart is in a regular rate and rhythm. She has a well-healed median sternotomy scar and the sternum is stable. Abdomen is benign. No tenderness, rebound or guarding. Extremities without edema. Cranial nerves, motor and sensory intact. Results 03/19/19 04:02 03/19/19 04:02 Lab Results, Last 24 hours 03/19/19 03/19/19 03/19/19 04:02 04:02 13:01 WBC 23.5 H Hgb 10.5 L Hct 34.8 L Plt Count 199 INR 1.4 Sodium 140 Potassium 5.0 Chloride 96 L Carbon Dioxide 30 H BUN 27 H Creatinine 3.39 H Glucose 117 H Calcium 8.1 L Consult Discharge Plan - Plan Referrals: Fausto Gao DO [Primary Care Provider] -
--- NOTE | 2019-03-19 16:44 | Internal Med Progress Note ---
Hospitalist Progress Note - Encounter Date of Encounter: 03/19/19 Time of Encounter: 16:43 - Subjective Interval History: Evaluated patient multiple times during the day. Patient is been lying down in bed. Comfortable. She denies abdominal pain today. Does report some cough. No fever or chills reported overnight. Denies any chest pain or palpitations. No headaches. No nausea or vomiting. - Exam Vitals: Temp Pulse Resp BP Pulse Ox 99.0 F 81 14 128/72 98 03/19/19 16:35 03/19/19 16:35 03/19/19 16:35 03/19/19 16:35 03/19/19 16:35 Exam: General: Patient is alert, mild distress, oriented x 3 ENT: Mucous membranes moist Neck: Right IJ temporary dialysis catheter in place Respiratory: Decreased breath sounds at both bases Cardiovascular: Regular rate and rhythm. s1 and s2 normal No clicks, rubs, gallops, or murmurs. No pedal edema Abdomen: Abdomen is soft, nontender. Bowel sounds are present Musculoskeletal: Spontaneously moving all extremities; Skin: warm, dry, intact. erythema noted on bilateral lower extremities just above the ankle. No open wounds. Neuro: Alert oriented x 3 normal cranial nerves, no focal deficits - Assessment and Plan (1) Peritoneal dialysis catheter infection Current Visit: Yes Status: Acute Assessment and Plan: WBC count continues to trend up. Peritoneal fluid culture growing gram-positive cocci and gram-positive rods. Patient on broad-spectrum antibiotics. We will also consult infectious disease evaluated patient and recommend further care. (2) End-stage renal disease on hemodialysis Current Visit: Yes Status: Acute Assessment and Plan: Patient transition to hemodialysis. Currently receiving dialysis through a right-sided temporary dialysis catheter. Awaiting placement of permanent dialysis catheter. (3) Aortic aneurysm Current Visit: Yes Status: Acute Assessment and Plan: Significant aortic aneurysm per CT angiogram done today. Cardiothoracic surgery consulted. Recommended open repair at [place] or [facility] once acute issues are taken care of. Family undecided yet. (4) Elevated troponin Current Visit: Yes Status: Acute Assessment and Plan: Concern for non-ST elevation PA. On IV heparin. Cardiology following. Recommend left heart catheterization after permanent catheter placed. Cardiology recommends to continue IV heparin till then. (5) ESRD on peritoneal dialysis Current Visit: Yes Status: Inactive (6) Hypertensive renal disease with renal failure Current Visit: Yes Status: Chronic Assessment and Plan: Blood pressure is well controlled. Continue to monitor and continue current medications (7) Uremia Current Visit: Yes Status: Resolved (8) Chronic systolic heart failure Current Visit: Yes Status: Chronic Assessment and Plan: Cardiology following. Volume management with hemodialysis. Patient does not have any lower extremity edema or orthopnea. Plan for left heart catheterization prior to discharge. (9) Ischemic cardiomyopathy Current Visit: Yes Status: Acute Assessment and Plan: Management as above. Continue aspirin, Plavix, statin and beta eloy (10) Dysphagia Current Visit: Yes Status: Acute Assessment and Plan: Patient has been evaluated by speech therapy and diet adjusted accordingly. (11) Debility Current Visit: Yes Status: Acute Assessment and Plan: Recommended placement to skilled rehabilitation but patient and family do not want see ECF or home health. (12) Erythema of lower limb Current Visit: Yes Status: Acute Assessment and Plan: Patient has erythematous lesions on the shins of her lower extremities just above her ankles. Concerning for vascular ischemia versus calciphylaxis. Discussed with vascular surgery. Recommend JENN. Will evaluate patient later. (13) CHF (congestive heart failure) Current Visit: Yes Status: Acute Assessment and Plan: Management as above (14) Coronary artery disease Current Visit: Yes Status: Acute Assessment and Plan: continue aspirin, Plavix, statin, beta eloy and lisinopril. - Time Spent with Patient Total time spent is greater than 50% in coordination of care (as documented) at patient's floor/unit and/or counseling patient: Internal Medicine: Result - Labs CBC & Chem 7: 03/19/19 04:02 03/19/19 04:02 Labs: Short CBC 03/19/19 Range/Units 04:02 WBC 23.5 H (4.3-11.1) K/mcL Hgb 10.5 L (11.5-15.4) g/dL Hct 34.8 L (35.3-44.9) % Plt Count 199 (140-400) K/mcL BMP 03/19/19 04:02 Sodium 140 Potassium 5.0 Chloride 96 L Carbon Dioxide 30 H BUN 27 H Creatinine 3.39 H Glucose 117 H Calcium 8.1 L - ABG Interpretation ABG results: PT/INR, D-dimer PT 16.0 Seconds (9.4-12.1) H 03/19/19 13:01 - Impressions Impressions Abdomen/Pelvis CT 03/18/19 17:39 IMPRESSION: 1. Third-spacing of fluid has worsened since 03/12/2019 as evidenced by bilateral effusions, anasarca, and abdominal ascites. 2. Left adnexal cyst measuring 3.6 x 2.7 cm. Dedicated pelvic ultrasound is recommended on a nonemergent basis. 3. 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 4. Small sliding-type hiatal hernia. D/ / 03/18/2019 18:46:37 Zaria Lou MD / michael Interpreting Provider: Zaria Lou MD Chest Ultrasound 03/19/19 08:56 IMPRESSION: 1. Ultrasound-guided left thoracentesis performed. 850 mL of pleural fluid was aspirated. 2. Small right pleural effusion, insufficient for thoracentesis. D/ / Jeremy Lee MD / Jeremy Lee MD Interpreting Provider: Jeremy Lee MD Thoracentesis 03/19/19 08:57 IMPRESSION: 1. Ultrasound-guided left thoracentesis performed. 850 mL of pleural fluid was aspirated. 2. Small right pleural effusion, insufficient for thoracentesis. D/ / Jeremy Lee MD / Jeremy Lee MD Interpreting Provider: Jeremy Lee MD Chest CTA 03/19/19 11:01 IMPRESSION: Large complex shaped thoracic aortic aneurysm, which appears to arise just above the location of a previous aortic repair. The aneurysm sac extends laterally on the left and right from the main channel of flow through the thoracic aorta just below the thoracic aortic arch, and measures approximately 8.8 x 5.2 cm. No dissection flap is identified. There is also a 2nd small saccular aneurysm arising off the anterior wall of the aorta measuring 9 mm in greatest dimension, just below the proximal portion of the previous thoracic aortic repair. Recommend consultation with cardiothoracic surgery. Cardiomegaly with left ventricular dilation. Atherosclerotic disease with heavy coronary artery involvement. Pulmonary hypertension with enlargement of the main pulmonary artery. No pulmonary emboli are identified. D/ / 03/19/2019 14:42:10 Luis Ferraro MD / Jessica Aceves Interpreting Provider: Luis Ferraro MD Chest X-Ray 03/19/19 14:15 IMPRESSION: Bilateral pleural effusions. Decreased on the left and new on the right. No pneumothorax. D/ / Monika Blevins MD / Monika Blevins MD Interpreting Provider: Monika Blevins MD Consult Discharge Plan - Plan Referrals: Fausto Gao DO [Primary Care Provider] - (1) Peritoneal dialysis catheter infection Qualifiers: Encounter type: initial encounter Qualified Code(s): T85.71XA - Infection and inflammatory reaction due to peritoneal dialysis catheter, initial encounter (3) Aortic aneurysm Qualifiers: Aortic location: thoracic aorta Presence of rupture: without rupture Qualified Code(s): I71.2 - Thoracic aortic aneurysm, without rupture (10) Dysphagia Qualifiers: Dysphagia type: oropharyngeal phase Qualified Code(s): R13.12 - Dysphagia, oropharyngeal phase (13) CHF (congestive heart failure) Qualifiers: Heart failure type: systolic Heart failure chronicity: chronic Qualified Code(s): I50.22 - Chronic systolic (congestive) heart failure (14) Coronary artery disease Qualifiers: Coronary Disease-Associated Artery/Lesion type: [place] artery [place] vs. transplanted heart: [place] heart Associated angina: without angina Qualified Code(s): I25.10 - Atherosclerotic heart disease of [place] coronary artery without angina pectoris
[2019-03-19 17:12] LABS: RBC,Pleural Fluid < 0.002 M/mcL
[2019-03-19] MEDS ORDERED: Piperacillin/Tazobactam 3.375 GM in 0.9 % Sodium Chloride Mini Bag 100 ML IVPB SCH (17:18)
[2019-03-19 17:28] LABS: Glucose,Pleural Fluid 114 mg/dL (No Ref Range); LDH,Pleural Fluid 60 Units/L (No Ref Range); Total Protein,Pleural Fluid < 3.0 g/dL (No Ref Range)
[2019-03-19 17:30] LABS: Appearance of Pleural Fl Clear (Clear)
--- NOTE | 2019-03-19 17:44 | Anesthesia Evaluation PreOp ---
Date of Encounter: 03/19/19 Time of Encounter: 17:42 - Past History Planned Operation: peritoneal Dialysis catheter removal Cardiac History: CHF (hx CHF), HTN, Hyperlipidemia, Cardiac Surgery (AVR 2004), Cardiac Stent (stent x 1 2002), Other (Thoracic Aortic Aneurysm, CAD) Pulmonary History: Denies Any Significant HX LOADING AND UNLOADING SUPERVISOR History: Denies Any Significant HX Other Medical History: Renal (ESRD), Diabetes Type II Anesthesia History: No Prior Anesthetic Complications, Past Anesthesia (GB, AVR) : No Alcohol Use: none Drug use: none Medications and Allergies Clopidogrel [Plavix] 75 mg PO DAILY 06/15/16 [History] Ergocalciferol (VITAMIN D2) [Vitamin D2 (50,000 UNIT)] 50,000 unit PO 3XW MDD mon, wed, fri 06/15/16 [History] Isosorbide MONOnitrate (24 HR) [Imdur] 60 mg PO DAILY 06/15/16 [History] Simvastatin [Zocor] 40 mg PO HS 06/15/16 [History] amLODIPine [Norvasc] 10 mg PO BID 06/15/16 [History] Calcitriol [Rocaltrol] 0.25 mcg PO DAILY 03/21/18 [History] Calcium Acetate [Phos-LO] 2 cap PO TID 03/21/18 [History] [place]-3/Dha/Epa/Fish Oil [Fish Oil 1,000 mg Softgel] 1 cap PO TID 03/21/18 [History] Sodium Bicarbonate 1,300 mg PO BID 03/21/18 [History] hydrALAZINE [HydrALAZINE] 25 mg PO BID 03/21/18 [History] Magnesium Oxide [Mag-Ox] 400 mg PO BID 7 Days #14 tablet 03/24/18 [Rx] Ascorbate Calcium [Vitamin C] 500 mg PO DAILY 03/14/19 [History] Furosemide [Lasix] 40 mg PO 4XW 03/14/19 [History] Allergy/AdvReac Type Severity Reaction Status Date / Time Iodinated Contrast- Oral and AdvReac Nausea Verified 03/21/18 14:52 IV Dye - Meds/Allergy Pre-op Review Medications Reviewed: Yes Allergies Reviewed: Yes Beta Blockers on Current Med List: Yes If Beta Blockers taken, Date/Time (Last Dose taken): 08:35 day Anesthesia Results - Labs 03/19/19 04:02 03/19/19 04:02 - Imaging EKG: report reviewed (SINUS TACHYCARDIA SEPTAL MYOCARDIAL INFARCTION, POSSIBLY RECENT LATERAL MYOCARDIAL INFARCTION, PROBABLY RECENT ACUTE VASINUS TACHYCARDIA SEPTAL MYOCARDIAL INFARCTION, POSSIBLY RECENT LATERAL MYOCARDIAL INFARCTION, PROBABLY RECENT ACUTE VA) Additional studies: ECHO: LVEF 25-30%, severe global and segmental LV systolic dysfunction and moderate concentric LV hypertrophy. Mild tricuspid and pulmonic dysfunction ECHO is unchanged from prior done 03/23/18. Echocardiogram EV/EV echocardiogram Impressions: LVEF 25-30%, no improvement compared to 03/23/2018 study. Severe global and segmental left ventricular systolic dysfunction. Moderate concentric left ventricular hypertrophy. Normal right ventricular size and function. Mild tricuspid regurgitation. Mild pulmonic regurgitation. No pulmonary hypertension. Left Ventricular Wall Motion: Rest Echo Findings The apical inferior, mid inferior, basal inferior, basal anterior, mid inferior septal, basal inferior septal, apical lateral, mid anterior lateral, basal anterior lateral, mid inferior lateral, basal anterior septal and basal inferior lateral jacobsen were hypokinetic. The apex, mid anterior, apical septal and mid anterior septal jacobsen were akinetic. CTA OF THE CHEST 03/19/2019 2:08 pm COMPARISON: 03/12/2019, 08/08/2006, 07/27/2009 HISTORY: Aortic aneurysm, with history of previous open-heart repair, as well as history of hypertension, congestive heart failure, and coronary artery disease. FINDINGS: Pulmonary Arteries: Pulmonary hypertension is identified with enlargement of the main pulmonary artery. No pulmonary emboli are identified. Mediastinum: The heart is enlarged. There is left ventricular dilation. Atherosclerotic calcifications are seen within the aorta and heavily within the [place] coronary arteries. There is a ring-like structure seen surrounding the ascending thoracic aorta above the aortic valve, best seen on axial image 61, also noted on previous CT imaging in 2008 from previous aortic repair. Just above this, is a large complex shaped thoracic aortic aneurysm just below the arch measuring 8.8 x 5.2 cm on axial image 46. Just above the original repair, there is a partially thrombosed portion of the aneurysm sac on axial image 55. There is also a small saccular aneurysm arising from the anterior wall of the thoracic aorta measuring 14 x 8 mm in size, axial image 65. This arises just below the previous repair site. The descending thoracic aorta is normal in caliber. No dissection flap is identified. CT/CT angio chest IMPRESSION: Large complex shaped thoracic aortic aneurysm, which appears to arise just above the location of a previous aortic repair. The aneurysm sac extends laterally on the left and right from the main channel of flow through the thoracic aorta just below the thoracic aortic arch, and measures approximately 8.8 x 5.2 cm. No dissection flap is identified. There is also a 2nd small saccular aneurysm arising off the anterior wall of the aorta measuring 9 mm in greatest dimension, just below the proximal portion of the previous thoracic aortic repair. Recommend consultation with cardiothoracic surgery. Cardiomegaly with left ventricular dilation. Atherosclerotic disease with heavy coronary artery involvement. Pulmonary hypertension with enlargement of the main pulmonary artery. No pulmonary emboli are identified. Anesthesia Exam Vital Signs/O2 Sat, Most Current Temp Pulse Resp BP Pulse Ox 99.0 F 81 14 128/72 98 03/19/19 16:35 03/19/19 16:35 03/19/19 16:35 03/19/19 16:35 03/19/19 16:35 - HEENT Pupil (Motor): Pupils equal, EOMI Mallampati: III Teeth: Edentulous Denture Type: Upper: Complete, Lower: Complete Oral Opening: Greater than 3 - LOADING AND UNLOADING SUPERVISOR LOC: Oriented LOADING AND UNLOADING SUPERVISOR Motor: Normal RUE, Normal LUE, Normal RLE, Normal LLE, Normal Face LOADING AND UNLOADING SUPERVISOR Sensory: Normal: RUE, LUE, RLE, LLE, Face - Cardiac Rhythm: Regular Murmur: None JVD: No Carotid Bruit: No - Pulmonary Breath Sounds: bilateral Clear Respiratory Effort: Symmetrical Anesthesia Assess/Plan ASA Score: 4 Anesthetic Plan: MAC Autologous Blood: Yes Monitoring Plan: Standard Monitors Recovery Plan: Other
[2019-03-19] MEDS ORDERED: Propofol 500 MG/50 ML INFUS..BTL ONE (18:40)
[2019-03-19] MEDS ORDERED: *HR* FentaNYL (PF) 100 MCG/2 ML VIAL ONE (18:42)
[2019-03-19] MEDS ORDERED: *HR* PHENYLEPHRINE 1,000 MCG/10 ML SYRINGE IVP ONE (19:21)
--- NOTE | 2019-03-19 19:47 | Operative Note ---
Date of procedure: 03/19/19 Pre-op diagnosis: Infected peritoneal dialysis catheter Post-op diagnosis: same Procedure: #1 removal of peritoneal dialysis catheter #2 repair of umbilical hernia Anesthesia: MAC Surgeon: Govind Akers Was there an certified registered dental assistant present: No Estimated blood loss (cc): 10 Specimen: Cultures. Gross culture of catheter. Swab cultures aerobic and anaerobic Condition: stable Disposition: PACU Procedure in Detail: After informed consent the patients taking major operating suite placed in the supine position and given adequate monitored anesthesia care. The abdomen was prepped and draped in sterile fashion utilizing ChloraPrep standard draping techniques. Timeout was taken and the patient was identified. I injected 30 mL 1% lidocaine with epinephrine. I made a periumbilical incision. It appeared as though the Dacron pledget of the peritoneal dialysis catheter was involved with a hernia sac involving the umbilicus. As I dissected toward the fascia this turned out to be the case. I circumferentially dissected the Dacron pledget free from surrounding tissue. There was a 2 cm periumbilical hernia. I divided the intra-abdominal catheter remove this from the abdomen and sent this for culture. There was ascites in the abdomen. I placed a sump suction unit into the abdomen and removed all of the ascites. At the end of the aspiration the fluid turned turbid and possibly purulent. I obtained aerobic and anaerobic cultures inside the abdomen. The fascia was closed with interrupted 0 Vicryl suture material. I divided the middle third of the catheter and then put traction on the outer portion the catheter I could feel the Dacron pledget about a centimeter inside of the skin. The overlying skin was divided and I circumferentially dissected the pledget and removed all portions of the peritoneal dialysis catheter. There is a small amount of arterial bleeding from the subcutaneous tunnel. This was easily controlled with electrocautery. The subcutaneous tissue on both incisions was closed with interrupted 3-0 Vicryl. I irrigated with copious amounts of antibiotic containing solution. The skin was loosely reapproximated with interrupted skin aaliyah. Case class IV. She tolerated the procedure well and was transferred to recovery in stable condition
[2019-03-19] MEDS ORDERED: 0.9 % Sodium Chloride 250 ML IVC PRN (23:44)
[2019-03-19] MEDS ORDERED: 0.9 % Sodium Chloride 1,000 ML PRIME SCH (23:44)
[2019-03-19] MEDS ORDERED: *HR* Promethazine 25 MG/ML VIAL IVP PRN (23:44)
[2019-03-19] MEDS ORDERED: Heparin 25,000 UNIT/250 ML D5W 25,000 UNIT/250 ML IV.SOLN IVC SCH (23:44)
[2019-03-19] MEDS ORDERED: Ondansetron 4 MG/2 ML VIAL IVP PRN (23:44)
[2019-03-19] MEDS ORDERED: *HR* Heparin 5,000 UNIT/ML VIAL IVP PRN ×2 (23:44)
[2019-03-20] MEDS ORDERED: Perit. Dialysis with Dex 1.5 % 2,000 ML PERITONEAL SCH (02:00)
[2019-03-20] MEDS: Piperacillin/Tazobactam 3.375 GM in 0.9 % Sodium Chloride Mini Bag 100 ML IVPB SCH ×2 (05:45→16:58)
[2019-03-20 06:56] LABS: Hematocrit 31.7 % (35.3-44.9); Hemoglobin 9.5 g/dL (11.5-15.4); Mean Corpuscular Hemoglobin 29.5 pg (28.0-33.3); Mean Corpuscular Volume 98.4 fL (83.0-100.0); Mean Platelet Volume 10.3 fL (9.4-12.4); Platelet Count 179 K/mcL (140-400); Red Blood Count 3.22 M/mcL (3.82-4.97); Red Cell Distribution Width 14.8 % (11.5-14.5)
[2019-03-20 07:17] LABS: Potassium 5.1 mEq/L (3.5-5.1)
[2019-03-20] MEDS: Folic Acid 1 MG TABLET PO SCH (08:26)
[2019-03-20] MEDS: Aspirin 81 MG TAB.CHEW PO SCH (08:26)
[2019-03-20] MEDS: Isosorbide MONOnitrate (24 HR) 60 MG TAB.ER.24H PO SCH (08:27)
--- NOTE | 2019-03-20 08:55 | AcuteCareSurgery Progress Note ---
<Nichol Corea - Last Filed: 03/20/19 08:59> Date of Encounter: 03/20/19 Time of Encounter: 08:52 - Assessment and Plan (1) Peritoneal dialysis catheter infection Current Visit: Yes Status: Acute This is a 73-year-old female with past medical history significant for ESRD, hyperlipidemia, hypertension who continues to have persistent leukocytosis while admitted. Surgery was consulted for removal of peritoneal dialysis catheter. - Dialysis [place] [address] Lock - Patient is postoperative day #1 status post removal of peritoneal dialysis catheter and repair of umbilical hernia - Leukocytosis has improved status post procedure PLAN: - Continue to monitor for fevers or worsening leukocytosis - Continue to monitor for abdominal pain - Plan for removal of dressing tomorrow morning - Patient may resume regular diet - Surgery will sign off at this time; please reconsult as necessary Qualifiers: Encounter type: initial encounter Qualified Code(s): T85.71XA - Infection and inflammatory reaction due to peritoneal dialysis catheter, initial encounter (2) Umbilical hernia Current Visit: Yes Status: Acute Patient is postoperative day #1 status post removal of peritoneal dialysis cat heter and repair of umbilical hernia - Reports no acute complaints at this time - Please see plan as above Qualifiers: Obstruction and gangrene presence: without obstruction or gangrene Qualified Code(s): K42.9 - Umbilical hernia without obstruction or gangrene Subjective Patient reports: no new complaints, feels better, pain is less, tolerating a regular diet, voiding w/o difficulty, flatus, no bowel movement, afebrile Narrative: Patient was seen and examined while undergoing hemodialysis this morning. Patient is postop day #1 status post removal of peritoneal dialysis catheter and repair of umbilical hernia. She reports no pain at this time. States that she is comfortable. No acute events reported overnight. She has remained afebrile. Patient is eating and tolerating regular diet. She has passed gas since procedure. Bowel sounds are present. Otherwise no acute complaints. Objective Vital Signs - Last 8 Hours Temp Pulse Resp BP Pulse Ox 03/20/19 07:48 98.0 F 88 17 114/73 90 03/20/19 04:23 98.5 F 101 16 121/68 98 Intake and Output 03/19/19 03/20/19 03/20/19 23:59 07:59 15:59 Intake Total 100 / 100 162 / 162 48.1 / 48.1 Output Total Balance 90 / / 48.1 / 48.1 Intake: IV Fluids 100 / 100 / 48.1 / 48.1 Heparin 25,000 UNIT/250 ML D5W 48.1 / 48.1 25,000 unit In 250 ml @ 12 UNIT /KG/HR 6.389 mls/hr IVC .Q24H [facility] Rx#:[id number] Zosyn 3.375 GM In 0.9 % Sodium 100 / 100 Chloride (Mini-Bag +) 100 ML @ 25 mls/hr IVPB Q12HR [facility] Rx#: [id number] Output: Estimated Blood Loss Other: Weight 57.1 kg - General physical appearance well developed, well nourished, no distress, no pain - Eyes normal ocular movement - ENT normal mucosa, no hearing loss, atraumatic, normocephalic - Neck Neck exam: trachea midline - Respiratory normal expansion, normal respiratory effort, clear to auscultation - Cardiovascular Cardiovascular exam: Present: RRR, regular rhythm, no murmurs/rubs/gallops - Abdomen Abdomen: Present: bowel sounds present, soft, non tender Hernia: none - Incision Incision: Present: clean and dry, intact - Integumentary no rash, no abnormal pigmentation - Psychiatric oriented to time, oriented to person, oriented to place, speech is normal, memory intact - Labs 03/20/19 04:00 03/20/19 04:00 Diabetes panel 03/20/19 Range/Units 04:00 Sodium 135 L (136-145) mEq/L Potassium 5.1 (3.5-5.1) mEq/L Chloride 98 (98-107) mEq/L Carbon Dioxide 28 (23-29) mEq/L BUN 37 H (8-23) mg/dL Creatinine 4.36 H (0.60-1.20) mg/dL Glucose 80 (70-105) mg/dL Calcium 8.0 L (8.6-10.3) mg/dL Calcium panel 03/20/19 Range/Units 04:00 Calcium 8.0 L (8.6-10.3) mg/dL Pituitary panel 03/20/19 Range/Units 04:00 Sodium 135 L (136-145) mEq/L Potassium 5.1 (3.5-5.1) mEq/L Chloride 98 (98-107) mEq/L Carbon Dioxide 28 (23-29) mEq/L BUN 37 H (8-23) mg/dL Creatinine 4.36 H (0.60-1.20) mg/dL Glucose 80 (70-105) mg/dL Calcium 8.0 L (8.6-10.3) mg/dL Adrenal panel 03/20/19 Range/Units 04:00 Sodium 135 L (136-145) mEq/L Potassium 5.1 (3.5-5.1) mEq/L Chloride 98 (98-107) mEq/L Carbon Dioxide 28 (23-29) mEq/L BUN 37 H (8-23) mg/dL Creatinine 4.36 H (0.60-1.20) mg/dL Glucose 80 (70-105) mg/dL Calcium 8.0 L (8.6-10.3) mg/dL Consult Discharge Plan - Plan Referrals: Fausto Gao DO [Primary Care Provider] - <Pilo Rivera - Last Filed: 03/21/19 15:39> Date of Encounter: 03/20/19 Objective Vital Signs - Last 8 Hours Temp Pulse Resp BP Pulse Ox 03/21/19 10:41 98.8 F 72 18 131/73 99 Intake and Output 03/20/19 03/21/19 03/21/19 23:59 07:59 15:59 Intake Total 100 / 100 0 / 0 Output Total 0 / 0 0 / 0 Balance 100 / 100 0 / 0 Intake: IV Fluids 100 / 100 Zosyn 3.375 GM In 0.9 % Sodium 100 / 100 Chloride (Mini-Bag +) 100 ML @ 25 mls/hr IVPB Q12HR [facility] Rx#: [id number] Oral 0 / 0 0 / 0 Output: Urine 0 / 0 0 / 0 Other: # Voids 1 Weight 56.4 kg - Labs 03/21/19 04:00 03/21/19 04:00 Diabetes panel 03/21/19 Range/Units 04:00 Sodium 137 (136-145) mEq/L Potassium 4.3 (3.5-5.1) mEq/L Chloride 98 (98-107) mEq/L Carbon Dioxide 35 H (23-29) mEq/L BUN 25 H (8-23) mg/dL Creatinine 3.09 H (0.60-1.20) mg/dL Glucose 97 (70-105) mg/dL Calcium 8.3 L (8.6-10.3) mg/dL Calcium panel 03/21/19 Range/Units 04:00 Calcium 8.3 L (8.6-10.3) mg/dL Pituitary panel 03/21/19 Range/Units 04:00 Sodium 137 (136-145) mEq/L Potassium 4.3 (3.5-5.1) mEq/L Chloride 98 (98-107) mEq/L Carbon Dioxide 35 H (23-29) mEq/L BUN 25 H (8-23) mg/dL Creatinine 3.09 H (0.60-1.20) mg/dL Glucose 97 (70-105) mg/dL Calcium 8.3 L (8.6-10.3) mg/dL Adrenal panel 03/21/19 Range/Units 04:00 Sodium 137 (136-145) mEq/L Potassium 4.3 (3.5-5.1) mEq/L Chloride 98 (98-107) mEq/L Carbon Dioxide 35 H (23-29) mEq/L BUN 25 H (8-23) mg/dL Creatinine 3.09 H (0.60-1.20) mg/dL Glucose 97 (70-105) mg/dL Calcium 8.3 L (8.6-10.3) mg/dL - Attending Attestation I examined this patient and my medical decision-making was reviewed with the Resident Physician. I agree with the documented findings, disposition and tr eatment plan as described except to the extent set forth below. I reviewed the above assessment and evaluation with the resident and agree with the above plan. Be able to remove her dressing tomorrow and start showering tomorrow.
--- NOTE | 2019-03-20 10:48 | Infectious Disease Consult ---
Infectious Disease-Consult - Encounter Date/Time Date of Encounter: 03/20/19 Time of Encounter: 11:30 - Data of Consult Requesting Physician: Steve Cutler MD Primary Care Provider: Fausto Gao, - [facility] HPI: Mrs. Austin is a 73-year-old female who was admitted to [place] for uremia secondary to poor adherence to dialysis treatments on 03/13/19. Infectious disease was consulted for sepsis and persistent leukocytosis on 03/20/2019. Patient is a 73-year-old female with a pertinent past medical history of ESRD on home peritoneal dialysis, prior aortic dissection, and valvular heart disease who was admitted for uremic syndrome with azotemia in the setting of noncompliance with SYSTEMS APPLICATIONS PROGRAMMING LEAD regimen. On admission she also had leukocytosis, but no signs of infection were present at that time. A temporary dialysis catheter was placed and she underwent inpatient HD treatments. Her hospital course was complicated by elevated troponins with echo findings of LVEF 25-30% and severe global and LV systolic dysfunction, and declining hgb down to 6.5 and she was transfused 2 units pRBCs. During her admission patient exhibited leukocytosis which spiked to 23.5 on 03/19. On 03/18 peritoneal fluid was obtained from her PD site and sent for culture. Fluid studies revealed cellular clumps and thus total nucleated cells could not be counted. Segmented neutrophils within the fluid was found to be at 94%. Fluid was sent for culture and is now growing pansensitive staph schleiferi and gram positive rods. Further imaging studies obtained during this admission include an abdomen and pelvis CT on 03/18 which revealed third-spacing of fluid, anasarca, and abdominal ascites and a chest xray which revealed a pleural effusion on left. Acute care surgery was consulted due to concern for infected peritoneal dialysis catheter and the dialysis catheter was removed and sent for culture. During this surgery, the intraabdominal ascites was removed and apiration of the fluid was found to be turbid and possibly purulent. the fluid was sent for aerobic and anaerobic cultures and is pending. on 03/19 she underwent left thoracentesis with removal of 850ml of clear pleural fluid, transudative in appearance and cultures pending. f/u CTA chest revealed a large thoracic aortic aneurysm arising above the previous aortic repair prompting a CT surgery referral who recommend repair of the aneurysm after her acute problems are resolved. Patient was started on levaquin, vancomycin, and zosyn for concern for infection from peritoneal dialysis catheter infection vs. SBP. The patient was seen today during dialysis. She is resting comfortably and in no acute distress. She denies any fevers, chills, chest pain, SOB, or any abdominal pain, but does exhibit slight discomfort on palpation of the abdomen when palpating. - ROS Review of Systems: 10 system review of systems was performed and is negative except as stated in HPI - Results CBC & Chem 7: 03/23/19 03:05 03/23/19 03:05 - Exam Vitals: Temp Pulse Resp BP Pulse Ox 97.7 F 88 16 110/73 90 03/20/19 07:50 03/20/19 07:48 03/20/19 07:50 03/20/19 09:35 03/20/19 07:48 Exam: General: frail appearing elderly female resting comfortably in bed HEENT: head is atraumatic and normocephalic, pupils are equal, EOMI, external ears and nares patent. mucosa moist. Neck: no JVD, trahcea midline Chest: midline sternotomy scar, symmetrical chest wall rise, no tenderness to palpation Cardiovascular: regular rate and rhythm, no murmurs Respiratory: clear to auscultation bilaterally Abdomen: bandaged surgical site, mild tenderness to palpation Extremities: healing ulcers present on bilateral lower extremities Neurological: alert and oriented, no obvious focal neurological deficits Psych: appropriate mood and affect RX: Clopidogrel [Plavix] 75 mg PO DAILY 06/15/16 [History] RX: Ergocalciferol (VITAMIN D2) [Vitamin D2 (50,000 UNIT)] 50,000 unit PO 3XW MDD mon, wed, fri 06/15/16 [History] RX: Isosorbide MONOnitrate (24 HR) [Imdur] 60 mg PO DAILY 06/15/16 [History] RX: Simvastatin [Zocor] 40 mg PO HS 06/15/16 [History] RX: amLODIPine [Norvasc] 10 mg PO BID 06/15/16 [History] RX: Calcitriol [Rocaltrol] 0.25 mcg PO DAILY 03/21/18 [History] RX: Calcium Acetate [Phos-LO] 2 cap PO TID 03/21/18 [History] RX: [place]-3/Dha/Epa/Fish Oil [Fish Oil 1,000 mg Softgel] 1 cap PO TID 03/21/18 [History] RX: Sodium Bicarbonate 1,300 mg PO BID 03/21/18 [History] RX: hydrALAZINE [HydrALAZINE] 25 mg PO BID 03/21/18 [History] RX: Magnesium Oxide [Mag-Ox] 400 mg PO BID 7 Days #14 tablet 03/24/18 [Rx] Ascorbate Calcium [Vitamin C] 500 mg PO DAILY 03/14/19 [History] RX: Furosemide [Lasix] 40 mg PO 4XW 03/14/19 [History] Allergy/AdvReac Type Severity Reaction Status Date / Time Iodinated Contrast- Oral and AdvReac Nausea Verified 03/21/18 14:52 IV Dye - Assessment and Plan (1) Sepsis Current Visit: Yes Status: Acute -Leukocytosis with tachycardia. Likely secondary to infected peritoneal dialysis catheter with subsequent peritonitis -Supported by positive peritoneal fluid cultures for staphylococcus chleiferi and gram positive kelsy -Catheter removed and ascites drained by surgery -Currently on broad spectrum antibiotics with levaquin, vancomycin, and zosyn Plan: -Discontinue levaquin -Continue vancomycin and zosyn SNOMED Code(s): 90325240 (2) Peritonitis associated with peritoneal dialysis Current Visit: Yes Status: Acute -Concern is high for sepsis secondary to peritonitis from infected peritoneal dialysis catheter -Patient has persistent leukocytosis in the setting of peritoneal dialysis -Denies abdominal pain currently -Unable to calculate SAAG since peritoneal albumin level not available -Fluid from peritoneal dialysis catheter does not quantify total nucleated cells, but there were >10 TNC/hpf present -Fluid segmented neutrophils were at 94% -Her peritoneal fluid also grew coagulase negative staph, staphylococcus schleiferi, and a gram positive kelsy -Therefore suspicion is high for peritonitis associated with peritoneal dialysis -The catheter was removed and ascites was drained by surgery and sent for aerobi c and anaerobic cultures -Patient started on broad spectrum coverage with IV vancomycin, zosyn, and legionella Plan: -Peritoneal cultures growing gram positive kelsy and coagulase negative staph -discontinue levaquin and continue with vancomycin and zosyn. SNOMED Code(s): 646649512 (3) End-stage renal disease on hemodialysis Current Visit: Yes Status: Acute -Currently on hemodialysis by nephrology SNOMED Code(s): 037230859 (4) Aortic aneurysm Current Visit: Yes Status: Acute -CT surgery recommending repair of aneurysm measurin 8.8cm x 5.2cm after treatment of acute illness Qualifiers: Aortic location: thoracic aorta Presence of rupture: without rupture Qualified Code(s): I71.2 - Thoracic aortic aneurysm, without rupture SNOMED Code(s): 75801102 Past Med Surg Social Fam HX - Past Medical History Medical history: hyperlipidemia, hypertension, renal disease, valvular heart disease, other Psychiatric history: no psych history - Past Surgical History Surgical History: cholecystectomy, other Additional surgical history: 13 years ago aortic heart surgery - Social History Smoking Status: Never smoker Smokeless Tobacco Status: No Alcohol use: none Drug use: none - Family History Father Hx Family Respiratory Disorders: Yes Sister Hx Family Respiratory Disorders: Yes Consult Discharge Plan - Plan Referrals: Fausto Gao DO [Primary Care Provider] - - Attending Attestation I examined this patient and my medical decision-making was reviewed with the Resident Physician. I agree with the documented findings, disposition and treatment plan as described except to the extent set forth below. This is an addendum to original report dictated by resident physician. Please refer to resident's note for full details. Patient is a 73-year-old woman with past medical history mentioned above presented with altered mental status secondary to uremic syndrome and noncompliance with peritoneal dialysis. We wer e evaluating the patient for peritonitis due to peritoneal dialysis with sepsis. Clinically patient is awake alert oriented and answers questions and follows command. Review of system and physical exam as per above Assessment and plan: Sepsis Peritonitis associated with peritoneal dialysis causative organism corynebacterium and Staphylococcus schleiferi methicilin sensitive End-stage renal disease on hemodialysis Aortic aneurysm Recommendations Continue Zosyn for now. DC vancomycin Await cultures to finalize based on that will make further recommendations Monitor labs and for drug toxicity Dose adjust Zosyn based on the creatinine clearance
--- NOTE | 2019-03-20 11:01 | Nephrology Progress Note ---
Date of Encounter: 03/20/19 Time of Encounter: 11:00 - Assessment and Plan (1) ESRD (end stage renal disease) Current Visit: Yes Status: Chronic She was converted to Hemodialyis earlier in this admission due to very poor compliance with PD prior to arrival. The patient was seen on dialysis today. HD MWF. Renal vitamins. Renal dose medications. Renal diet. Additional dialysis and ultrafiltration as needed. Once infection is cleared plan for placement of her tunneled dialysis catheter. (2) Hypertension Current Visit: Yes Status: Chronic Titrate blood pressure medication as needed. Qualifiers: Hypertension type: renovascular hypertension Qualified Code(s): I15.0 - Renovascular hypertension (3) Uremia Current Visit: Yes Status: Resolved (4) Hypokalemia Current Visit: Yes Status: Acute (5) Anemia Current Visit: Yes Status: Acute Monitor for bleeding. Transfuse as needed. Qualifiers: Anemia type: unspecified type Qualified Code(s): D64.9 - Anemia, unspecified (6) PD catheter dysfunction Current Visit: Yes Status: Acute Infected. s/p removal. Continue antibiotics. Qualifiers: Encounter type: initial encounter Qualified Code(s): T85.611A - Breakdown (mechanical) of intraperitoneal dialysis catheter, initial encounter Subjective Principal diagnosis: ESRD, Switching from PD to HD Interval history: Patient was seen and evaluated while she was on dialysis. She had no new complaints. Objective - Vital Signs Vital signs: Vital Signs Temp Pulse Resp BP Pulse Ox 03/20/19 10:05 99/59 03/20/19 09:50 109/71 03/20/19 09:35 110/73 03/20/19 09:20 119/89 03/20/19 09:05 104/85 03/20/19 08:50 107/68 03/20/19 08:35 109/68 03/20/19 08:20 107/65 03/20/19 08:05 112/73 03/20/19 07:50 97.7 F 16 134/78 03/20/19 07:48 98.0 F 88 17 114/73 90 03/20/19 04:23 98.5 F 101 16 121/68 98 03/19/19 23:27 98.1 F 100 16 118/68 98 03/19/19 20:16 98 F 80 16 119/71 98 03/19/19 16:35 99.0 F 81 14 128/72 98 03/19/19 11:15 98.4 F 73 13 93/58 97 Intake and Output 03/19/19 03/20/19 03/20/19 23:59 07:59 15:59 Intake Total 100 / 100 762 / 762 48.1 / 48.1 Output Total 10 / 10 Balance 90 / 90 762 / 762 48.1 / 48.1 Intake: IV Fluids 100 / 100 162 / 162 48.1 / 48.1 Heparin 25,000 UNIT/250 ML D5W 162 / 162 48.1 / 48.1 25,000 unit In 250 ml @ 12 UNIT /KG/HR 6.389 mls/hr IVC .Q24H SRUTHI Rx#:[id number] Zosyn 3.375 GM In 0.9 % Sodium 100 / 100 Chloride (Mini-Bag +) 100 ML @ 25 mls/hr IVPB Q12HR SRUTHI Rx#: [id number] Intake, Rinseback and Flushes 600 / 600 Output: Estimated Blood Loss Other: Weight 57.1 kg Hemodialysis Net Fluid Removed 0 632 (mL) - General Appearance General appearance: Present: well-developed, well-nourished EENT: Present: ATNC Neck: Present: supple Cardiology: Present: regular rate Dialysis Vascular Access: Venous Catheter - Lab 03/20/19 04:00 03/20/19 04:00 Most recent lab results Calcium 8.0 mg/dL (8.6-10.3) L 03/20/19 04:00 Phosphorus 10.8 mg/dL (2.7-4.5) H 03/13/19 03:55 Magnesium 1.8 mg/dL (1.6-2.6) 03/13/19 03:55 Consult Discharge Plan - Plan Referrals: Fausto Gao DO [Primary Care Provider] -
[2019-03-20] MEDS ORDERED: 0.9 % Sodium Chloride 2,000 ML ONE (12:02)
--- NOTE | 2019-03-20 13:43 | Internal Med Progress Note ---
Hospitalist Progress Note - Encounter Date of Encounter: 03/20/19 Time of Encounter: 10:15 - Subjective Interval History: Saw patient during dialysis. Underwent removal of dialysis catheter yesterday. Doing well postprocedure. Denies any abdominal pain this morning. No chest pain or shortness of breath. No fever reported overnight. - Exam Vitals: Temp Pulse Resp BP Pulse Ox 97.5 F L 88 20 117/66 90 03/20/19 11:06 03/20/19 07:48 03/20/19 11:06 03/20/19 11:06 03/20/19 07:48 Exam: General: Patient is alert, mild distress, oriented x 3 ENT: Mucous membranes moist Respiratory: Decreased breath sounds at both bases. Cardiovascular: Regular rate and rhythm. s1 and s2 normal No clicks, rubs, gallops, or murmurs. No pedal edema Abdomen: Abdomen is soft, nontender. Bowel sounds are present Musculoskeletal: Spontaneously moving all extremities Skin: warm, dry, intact. Neuro: Alert oriented x 3 normal cranial nerves, no focal deficits - Assessment and Plan (1) Peritoneal dialysis catheter infection Current Visit: Yes Status: Acute Assessment and Plan: Peritoneal fluid culture is growing Staphylococcus schleiferi and gram pos rods. Currently on broad-spectrum antibiotics. WBC count has started trending down now. Peritoneal dialysis catheter has been removed. Consulted infectious disease to guide antibiotic regimen. Moderate risk for complications (2) End-stage renal disease on hemodialysis Current Visit: Yes Status: Acute Assessment and Plan: Continue dialysis through a temporary dialysis catheter. Await placement of permanent catheter once active infection resolves. (3) Aortic aneurysm Current Visit: Yes Status: Acute Assessment and Plan: Patient will need surgical repair once medically acute illness subsides. Family has not decided if they would want surgery at this time. We will make outpatient follow-up appointment with cardiothoracic surgery at discharge for further management. (4) Elevated troponin Current Visit: Yes Status: Acute Assessment and Plan: From possible non-ST elevation [place]. Patient on IV heparin. Discussed with cardiology. Okay to stop IV heparin today. Plan to do left heart catheterization if patient does not want aneurysmal surgery repair. However if patient wants to undergo his surgery, she may need transfer to tertiary care center so that this can be managed. (5) Hypertensive renal disease with renal failure Current Visit: Yes Status: Chronic Assessment and Plan: Blood pressure is well controlled. (6) Uremia Current Visit: Yes Status: Resolved (7) Chronic systolic heart failure Current Visit: Yes Status: Chronic Assessment and Plan: Volume management with hemodialysis. Plan to do left heart catheterization once permanent catheter is placed if okay with patient and family. (8) Ischemic cardiomyopathy Current Visit: Yes Status: Acute Assessment and Plan: EF of 25-30%. Continue supportive care. Cardiology following. Plavix on hold due to anticipated permanent catheter placement (9) Dysphagia Current Visit: Yes Status: Acute Assessment and Plan: Patient has been evaluated by speech therapy and diet adjustments have been made. Tolerating diet well no (10) Debility Current Visit: Yes Status: Acute Assessment and Plan: Recommended placement to skilled rehabilitation. However, family not willing to consider rehabilitation at this time. (11) Erythema of lower limb Current Visit: Yes Status: Acute Assessment and Plan: Vascular lesions versus calciphylaxis lesions. Stable. JENN shows that both posterior Tibial are normal and BP are noncompressible. Vascular surgery consult in progress. (12) CHF (congestive heart failure) Current Visit: Yes Status: Acute (13) Coronary artery disease Current Visit: Yes Status: Acute Assessment and Plan: Continue aspirin, lisinopril, Lopressor and statin. DVT Prophylaxis: Patient has been on IV heparin. We will stop IV heparin today. Will place patient on subcutaneous heparin for DVT prophylaxis from tomorrow. - Time Spent with Patient Total time spent is greater than 50% in coordination of care (as documented) at patient's floor/unit and/or counseling patient: Internal Medicine: Result - Labs CBC & Chem 7: 03/20/19 04:00 03/20/19 04:00 Labs: Short CBC 03/20/19 Range/Units 04:00 WBC 13.4 H (4.3-11.1) K/mcL Hgb 9.5 L (11.5-15.4) g/dL Hct 31.7 L (35.3-44.9) % Plt Count 179 (140-400) K/mcL BMP 03/20/19 04:00 Sodium 135 L Potassium 5.1 Chloride 98 Carbon Dioxide 28 BUN 37 H Creatinine 4.36 H Glucose 80 Calcium 8.0 L - ABG Interpretation ABG results: PT/INR, D-dimer PT 16.0 Seconds (9.4-12.1) H 03/19/19 13:01 - Impressions Impressions Chest Ultrasound 03/19/19 08:56 IMPRESSION: 1. Ultrasound-guided left thoracentesis performed. 850 mL of pleural fluid was aspirated. 2. Small right pleural effusion, insufficient for thoracentesis. D/ / Jeremy Lee MD / Jeremy Lee MD Interpreting Provider: Jeremy Lee MD Thoracentesis 03/19/19 08:57 IMPRESSION: 1. Ultrasound-guided left thoracentesis performed. 850 mL of pleural fluid was aspirated. 2. Small right pleural effusion, insufficient for thoracentesis. D/ / Jeremy Lee MD / Jeremy Lee MD Interpreting Provider: Jeremy Lee MD Chest CTA 03/19/19 11:01 IMPRESSION: Large complex shaped thoracic aortic aneurysm, which appears to arise just above the location of a previous aortic repair. The aneurysm sac extends laterally on the left and right from the main channel of flow through the thoracic aorta just below the thoracic aortic arch, and measures approximately 8.8 x 5.2 cm. No dissection flap is identified. There is also a 2nd small saccular aneurysm arising off the anterior wall of the aorta measuring 9 mm in greatest dimension, just below the proximal portion of the previous thoracic aortic repair. Recommend consultation with cardiothoracic surgery. Cardiomegaly with left ventricular dilation. Atherosclerotic disease with heavy coronary artery involvement. Pulmonary hypertension with enlargement of the main pulmonary artery. No pulmonary emboli are identified. D/ / 03/19/2019 14:42:10 Luis Ferraro MD / Jessica Aceves Interpreting Provider: Luis Ferraro MD Chest X-Ray 03/19/19 14:15 IMPRESSION: Bilateral pleural effusions. Decreased on the left and new on the right. No pneumothorax. D/ / Monika Blevins MD / Monika Blevins MD Interpreting Provider: Monika Blevins MD Consult Discharge Plan - Plan Referrals: Fausto Gao DO [Primary Care Provider] - (1) Peritoneal dialysis catheter infection Qualifiers: Encounter type: initial encounter Qualified Code(s): T85.71XA - Infection and inflammatory reaction due to peritoneal dialysis catheter, initial encounter (3) Aortic aneurysm Qualifiers: Aortic location: thoracic aorta Presence of rupture: without rupture Qualified Code(s): I71.2 - Thoracic aortic aneurysm, without rupture (9) Dysphagia Qualifiers: Dysphagia type: oropharyngeal phase Qualified Code(s): R13.12 - Dysphagia, oropharyngeal phase (12) CHF (congestive heart failure) Qualifiers: Heart failure type: systolic Heart failure chronicity: chronic Qualified Code(s): I50.22 - Chronic systolic (congestive) heart failure (13) Coronary artery disease Qualifiers: Coronary Disease-Associated Artery/Lesion type: [place] artery [place] vs. transplanted heart: [place] heart Associated angina: without angina Qualified Code(s): I25.10 - Atherosclerotic heart disease of [place] coronary artery without angina pectoris
--- NOTE | 2019-03-20 14:08 | Event Note ---
<Gauri Broderick - Last Filed: 03/20/19 14:05> Date of Encounter: 03/20/19 Time of Encounter: 14:05 Cardiology team has touched base with primary team regarding patient and plan. Heparin drip can be discontinued at this point. Continue to hold plavix until permacath placement. Please reconsult cardiology after permacath placement in regards to LHC. If patient is planning on having aortic aneurysm repaired, will not plan on doing LHC. If patient is declining to have repair of thoracic aortic aneurysm repair, then LHC can be performed. Cardiology will sign off at this point. <Ben Soriano - Last Filed: 03/20/19 18:44> Date of Encounter: 03/20/19 CTA complex ascending aortic aneurysm (8.8cm), no decision from pt regarding plan for repair. Permacath placement was postponed P: - c/w ASA, d/c heparin drip, resume plavix FRAN after permacath placement - if complex ascending aortic aneurysm (8.8cm) is to be repaired within 1 month, no LHC now given mandatory DAPT if PCI, prefer tertiary center transfer for possible CABG + aneurysm repair - if no plan for aneurysm repair, may consider LHC w possible revascularization, but unclear of overall long-term benefit/risk given major comorbidities - please call cardiology consult team for questions and updates
--- NOTE | 2019-03-20 14:42 | Vascular/Endovasc Consult Note ---
Date of Encounter: 03/20/19 Time of Encounter: 09:10 Assessment and Plan (1) Peripheral vascular disease Current Visit: Yes Status: Acute The pathophysiology and natural history of peripheral vascular disease was discussed with the patient and all questions were answered. Her waveforms are normal and her ankle-brachial indices are normal bilaterally. She has no evidence of hemodynamically significant peripheral vascular disease. She is dermatitis on her bilateral shins. She does have evidence of stasis dermatitis in the bilateral shins. She is advised to continue with leg elevation and daily aspirin. (2) Hypertension Current Visit: Yes Status: Chronic Qualifiers: Hypertension type: renovascular hypertension Qualified Code(s): I15.0 - Renovascular hypertension (3) Ischemic cardiomyopathy Current Visit: Yes Status: Acute (4) Coronary artery disease Current Visit: Yes Status: Acute Qualifiers: Coronary Disease-Associated Artery/Lesion type: [place] artery [place] vs. transplanted heart: [place] heart Associated angina: without angina Qualified Code(s): I25.10 - Atherosclerotic heart disease of [place] coronary artery without angina pectoris (5) Anemia in chronic kidney disease (CKD) Current Visit: Yes Status: Acute Qualifiers: Chronic kidney disease stage: on chronic dialysis Qualified Code(s): N18.6 - End stage renal disease; D63.1 - Anemia in chronic kidney disease; Z99.2 - Dependence on renal dialysis (6) End-stage renal disease on hemodialysis Current Visit: Yes Status: Acute - History of Present Illness Consult date: 03/20/19 Chief complaint: Bilateral lower extremity ulceration History of present illness: Ms. Austin is a 73 year old female Past Med Surg Social Fam HX - Past Medical History Medical history: hyperlipidemia, hypertension, renal disease, valvular heart disease, other Psychiatric history: no psych history - Past Surgical History Surgical History: cholecystectomy, other Additional surgical history: 13 years ago aortic heart surgery - Social History Smoking Status: Never smoker Smokeless Tobacco Status: No Alcohol use: none Drug use: none - Family History Father Hx Family Respiratory Disorders: Yes Sister Hx Family Respiratory Disorders: Yes Medications and Allergies Clopidogrel [Plavix] 75 mg PO DAILY 06/15/16 [History] Ergocalciferol (VITAMIN D2) [Vitamin D2 (50,000 UNIT)] 50,000 unit PO 3XW MDD mon, wed, fri 06/15/16 [History] Isosorbide MONOnitrate (24 HR) [Imdur] 60 mg PO DAILY 06/15/16 [History] Simvastatin [Zocor] 40 mg PO HS 06/15/16 [History] amLODIPine [Norvasc] 10 mg PO BID 06/15/16 [History] Calcitriol [Rocaltrol] 0.25 mcg PO DAILY 03/21/18 [History] Calcium Acetate [Phos-LO] 2 cap PO TID 03/21/18 [History] [employer]-3/Dha/Epa/Fish Oil [Fish Oil 1,000 mg Softgel] 1 cap PO TID 03/21/18 [History] Sodium Bicarbonate 1,300 mg PO BID 03/21/18 [History] hydrALAZINE [HydrALAZINE] 25 mg PO BID 03/21/18 [History] Magnesium Oxide [Mag-Ox] 400 mg PO BID 7 Days #14 tablet 03/24/18 [Rx] Ascorbate Calcium [Vitamin C] 500 mg PO DAILY 03/14/19 [History] Furosemide [Lasix] 40 mg PO 4XW 03/14/19 [History] Allergy/AdvReac Type Severity Reaction Status Date / Time Iodinated Contrast- Oral and AdvReac Nausea Verified 03/21/18 14:52 IV Dye All Systems Review: The remainder of the systems were reviewed and are negative Exam Vital Signs, Last 4 Hours Temp Resp BP 03/20/19 11:06 97.5 F L 20 117/66 03/20/19 10:50 100/62 Consult Discharge Plan - Plan Referrals: Fausto Gao DO [Primary Care Provider] -
[2019-03-20] MEDS ORDERED: Levofloxacin 500 MG/100 ML 500 MG/100 ML BAG IVPB SCH (16:00)
[2019-03-20] MEDS ORDERED: LEVOFLOXACIN 500 MG/100 ML MLS IVPB SCH (16:00)
[2019-03-21] MEDS: Piperacillin/Tazobactam 3.375 GM in 0.9 % Sodium Chloride Mini Bag 100 ML IVPB SCH ×2 (05:00→17:11)
[2019-03-21 05:26] LABS: Hematocrit 33.4 % (35.3-44.9); Hemoglobin 10.2 g/dL (11.5-15.4); Mean Corpuscular HGB Conc 30.5 g/dL (31.6-35.5); Mean Corpuscular Hemoglobin 30.2 pg (28.0-33.3); Mean Corpuscular Volume 98.8 fL (83.0-100.0); Mean Platelet Volume 9.7 fL (9.4-12.4); Platelet Count 189 K/mcL (140-400); Red Blood Count 3.38 M/mcL (3.82-4.97); Red Cell Distribution Width 14.8 % (11.5-14.5)
[2019-03-21 05:43] LABS: Calcium 8.3 mg/dL (8.6-10.3); Potassium 4.3 mEq/L (3.5-5.1)
[2019-03-21] MEDS: *HR* Heparin 5,000 UNIT/ML VIAL SQ SCH ×2 (06:31→17:11)
[2019-03-21] MEDS: Folic Acid 1 MG TABLET PO SCH (07:32)
[2019-03-21] MEDS: Isosorbide MONOnitrate (24 HR) 60 MG TAB.ER.24H PO SCH (07:32)
[2019-03-21] MEDS: Aspirin 81 MG TAB.CHEW PO SCH (07:32)
--- NOTE | 2019-03-21 11:44 | Nephrology Progress Note ---
Date of Encounter: 03/21/19 Time of Encounter: 11:44 - Assessment and Plan (1) ESRD (end stage renal disease) Current Visit: Yes Status: Chronic She was converted to Hemodialyis earlier in this admission due to very poor compliance with PD prior to arrival. HD MWF. Renal vitamins. Renal dose medications. Renal diet. Additional dialysis and ultrafiltration as needed. Once infection is cleared plan for placement of her tunneled dialysis catheter. (2) Hypertension Current Visit: Yes Status: Chronic Titrate blood pressure medication as needed. Qualifiers: Hypertension type: renovascular hypertension Qualified Code(s): I15.0 - Renovascular hypertension (3) Uremia Current Visit: Yes Status: Resolved (4) Hypokalemia Current Visit: Yes Status: Acute (5) Anemia Current Visit: Yes Status: Acute Monitor for bleeding. Transfuse as needed. Qualifiers: Anemia type: unspecified type Qualified Code(s): D64.9 - Anemia, unspecified (6) PD catheter dysfunction Current Visit: Yes Status: Acute Qualifiers: Encounter type: initial encounter Qualified Code(s): T85.611A - Breakdown (mechanical) of intraperitoneal dialysis catheter, initial encounter (7) Erythema of lower limb Current Visit: Yes Status: Acute concern for calciphylaxsis. Evaluated by vascular surgery. Recommend wound nurse consult. Plan for empiric treatment. Subjective Principal diagnosis: ESRD, Switching from PD to HD Interval history: Patient was seen and evaluated. She had no new complaints. Her ROS is otherwise stable. Objective - Vital Signs Vital signs: Vital Signs Temp Pulse Resp BP Pulse Ox 03/21/19 10:41 98.8 F 72 18 131/73 99 03/21/19 06:53 97.9 F 92 18 146/79 95 03/21/19 03:36 98.3 F 88 17 149/94 99 03/20/19 23:43 97.9 F 84 17 138/81 90 03/20/19 19:07 99.0 F 90 17 127/74 93 03/20/19 16:20 99.8 F H 88 16 135/72 98 Intake and Output 03/20/19 03/21/19 03/21/19 23:59 07:59 15:59 Intake Total 100 / 100 0 / 0 Output Total 0 / 0 0 / 0 Balance 100 / 100 0 / 0 Intake: IV Fluids 100 / 100 Zosyn 3.375 GM In 0.9 % Sodium 100 / 100 Chloride (Mini-Bag +) 100 ML @ 25 mls/hr IVPB Q12HR SRUTHI Rx#: [id number] Oral 0 / 0 0 / 0 Output: Urine 0 / 0 0 / 0 Other: # Voids 1 Weight 56.4 kg - General Appearance General appearance: Present: well-developed, well-nourished EENT: Present: ATNC Neck: Present: supple Respiratory: Present: clear Cardiology: Present: no edema, regular rate Gastrointestinal: Present: no tenderness Integumentary: Present: warm and dry Neurologic: Present: alert and oriented x3 Musculoskeletal: Present: no cyanosis Additional Comments: Patient has "rash" on the lateral aspect of her right leg and both the medial and lateral aspect of her left leg. Psychiatric: Present: mood/affect appropriate - Lab 03/21/19 04:00 03/21/19 04:00 Most recent lab results Calcium 8.3 mg/dL (8.6-10.3) L 03/21/19 04:00 Phosphorus 10.8 mg/dL (2.7-4.5) H 03/13/19 03:55 Magnesium 1.8 mg/dL (1.6-2.6) 03/13/19 03:55 Consult Discharge Plan - Plan Referrals: Fausto Gao DO [Primary Care Provider] -
--- NOTE | 2019-03-21 12:26 | Internal Med Progress Note ---
Hospitalist Progress Note - Encounter Date of Encounter: 03/21/19 Time of Encounter: 09:50 - Subjective Interval History: Patient lying down in bed. Awake and alert. Denies any new complaints overnight. No abdominal pain. No chest pain. No shortness of breath. No palpitations. No dizziness or lightheadedness. No nausea or vomiting. No diarrhea. - Exam Vitals: Temp Pulse Resp BP Pulse Ox 98.8 F 72 18 131/73 99 03/21/19 10:41 03/21/19 10:41 03/21/19 10:41 03/21/19 10:41 03/21/19 10:41 Exam: General: Patient is alert, no acute distress, oriented x 3 ENT: Mucous membranes moist Respiratory: Decreased breath sounds at both bases Cardiovascular: Regular rate and rhythm. s1 and s2 normal No clicks, rubs, gallops, or murmurs. No pedal edema Abdomen: Abdomen is soft, nontender. Bowel sounds are present Musculoskeletal: Spontaneously moving all extremities Skin: warm, dry, intact. Neuro: Alert oriented x 3 normal cranial nerves, no focal deficits - Assessment and Plan (1) Peritoneal dialysis catheter infection Current Visit: Yes Status: Acute Assessment and Plan: Continue current antibiotics. Awaiting final culture intraoperative culture results. Infectious disease recommendations appreciated. WBC count at 13.3. (2) End-stage renal disease on hemodialysis Current Visit: Yes Status: Acute Assessment and Plan: Nephrology following. Patient dialyzed yesterday. Plan to place permanent catheter on Saturday. (3) Aortic aneurysm Current Visit: Yes Status: Acute Assessment and Plan: Patient will need surgical repair. She tells me that she would eventually want surgery. We will readdress this on Saturday with cardiology and cardiothoracic surgery. She may not be able to undergo left heart catheterization if she is to undergo aortic aneurysm repair. This will need to be done at a tertiary care center. Patient willing to be transferred to a tertiary care center if needed. (4) Elevated troponin Current Visit: Yes Status: Acute Assessment and Plan: Patient treated for non-ST elevation [place]. Cardiology recommends left heart catheterization once patient is able to take Plavix. However given that she needs her aortic aneurysm repair, this may need to wait till after this procedure. (5) Hypertensive renal disease with renal failure Current Visit: Yes Status: Chronic Assessment and Plan: Blood pressure improved this morning. Continue current medications including Imdur, Zestril, Lopressor. (6) Uremia Current Visit: Yes Status: Resolved (7) Chronic systolic heart failure Current Visit: Yes Status: Chronic Assessment and Plan: Volume management with hemodialysis. Continue beta eloy (8) Ischemic cardiomyopathy Current Visit: Yes Status: Acute Assessment and Plan: Management as above (9) Dysphagia Current Visit: Yes Status: Acute Assessment and Plan: Speech therapy evaluation completed. (10) Debility Current Visit: Yes Status: Acute Assessment and Plan: Recommended placement to skilled rehabilitation. However patient wishes to go home (11) Erythema of lower limb Current Visit: Yes Status: Acute Assessment and Plan: Likely stasis dermatitis. Local wound care. Vascular surgery evaluation completed. We will follow recommendations (12) CHF (congestive heart failure) Current Visit: Yes Status: Acute Assessment and Plan: Management as above (13) Coronary artery disease Current Visit: Yes Status: Acute Assessment and Plan: Continue aspirin, statin, beta eloy and Zestril. Plavix on hold in anticipation for procedure - Time Spent with Patient Total time spent is greater than 50% in coordination of care (as documented) at patient's floor/unit and/or counseling patient: Internal Medicine: Result - Labs CBC & Chem 7: 03/21/19 04:00 03/21/19 04:00 Labs: Short CBC 03/21/19 Range/Units 04:00 WBC 13.3 H (4.3-11.1) K/mcL Hgb 10.2 L (11.5-15.4) g/dL Hct 33.4 L (35.3-44.9) % Plt Count 189 (140-400) K/mcL BMP 03/21/19 04:00 Sodium 137 Potassium 4.3 Chloride 98 Carbon Dioxide 35 H BUN 25 H Creatinine 3.09 H Glucose 97 Calcium 8.3 L - ABG Interpretation ABG results: PT/INR, D-dimer PT 16.0 Seconds (9.4-12.1) H 03/19/19 13:01 Consult Discharge Plan - Plan Referrals: Fausto Gao DO [Primary Care Provider] - (1) Peritoneal dialysis catheter infection Qualifiers: Encounter type: initial encounter Qualified Code(s): T85.71XA - Infection and inflammatory reaction due to peritoneal dialysis catheter, initial encounter (3) Aortic aneurysm Qualifiers: Aortic location: thoracic aorta Presence of rupture: without rupture Qualified Code(s): I71.2 - Thoracic aortic aneurysm, without rupture (9) Dysphagia Qualifiers: Dysphagia type: oropharyngeal phase Qualified Code(s): R13.12 - Dysphagia, oropharyngeal phase (12) CHF (congestive heart failure) Qualifiers: Heart failure type: systolic Heart failure chronicity: chronic Qualified C ode(s): I50.22 - Chronic systolic (congestive) heart failure (13) Coronary artery disease Qualifiers: Coronary Disease-Associated Artery/Lesion type: [place] artery [place] vs. transplanted heart: [place] heart Associated angina: without angina Qualified Code(s): I25.10 - Atherosclerotic heart disease of [place] coronary artery without angina pectoris
[2019-03-21 14:40] LABS: Fluid Source for Albumin PLEURAL FLUID
[2019-03-22] MEDS ORDERED: GuaiFENesin Liq 200 MG/10 ML UDC PO ONE (01:08)
[2019-03-22 03:18] LABS: Hematocrit 31.6 % (35.3-44.9); Hemoglobin 9.4 g/dL (11.5-15.4); Mean Corpuscular HGB Conc 29.7 g/dL (31.6-35.5); Mean Corpuscular Hemoglobin 29.3 pg (28.0-33.3); Mean Corpuscular Volume 98.4 fL (83.0-100.0); Mean Platelet Volume 9.9 fL (9.4-12.4); Platelet Count 172 K/mcL (140-400); Red Blood Count 3.21 M/mcL (3.82-4.97); Red Cell Distribution Width 14.9 % (11.5-14.5)
[2019-03-22 03:36] LABS: Calcium 7.9 mg/dL (8.6-10.3); Potassium 4.7 mEq/L (3.5-5.1)
[2019-03-22] MEDS: *HR* Heparin 5,000 UNIT/ML VIAL SQ SCH ×2 (06:34→16:51)
[2019-03-22] MEDS: Piperacillin/Tazobactam 3.375 GM in 0.9 % Sodium Chloride Mini Bag 100 ML IVPB SCH ×2 (06:34→16:54)
[2019-03-22] MEDS: Aspirin 81 MG TAB.CHEW PO SCH (07:45)
[2019-03-22] MEDS: Folic Acid 1 MG TABLET PO SCH (07:45)
[2019-03-22] MEDS: Isosorbide MONOnitrate (24 HR) 60 MG TAB.ER.24H PO SCH (07:45)
--- NOTE | 2019-03-22 09:49 | Nephrology Progress Note ---
Date of Encounter: 03/22/19 Time of Encounter: 09:49 - Assessment and Plan (1) ESRD (end stage renal disease) Current Visit: Yes Status: Chronic She was converted to Hemodialyis earlier in this admission due to very poor compliance with PD prior to arrival. HD MWF. Renal vitamins. Renal dose medications. Renal diet. Additional dialysis and ultrafiltration as needed. Once infection is cleared plan for placement of her tunneled dialysis catheter. (2) Hypertension Current Visit: Yes Status: Chronic Titrate blood pressure medication as needed. Qualifiers: Hypertension type: renovascular hypertension Qualified Code(s): I15.0 - Renovascular hypertension (3) Uremia Current Visit: Yes Status: Resolved (4) Hypokalemia Current Visit: Yes Status: Acute (5) Anemia Current Visit: Yes Status: Acute Qualifiers: Anemia type: unspecified type Qualified Code(s): D64.9 - Anemia, unspecified (6) PD catheter dysfunction Current Visit: Yes Status: Acute Qualifiers: Encounter type: initial encounter Qualified Code(s): T85.611A - Breakdown (mechanical) of intraperitoneal dialysis catheter, initial encounter (7) Erythema of lower limb Current Visit: Yes Status: Acute concern for calciphylaxsis. Evaluated by vascular surgery. Recommend wound nurse consult. Plan for empiric treatment with sodium thiosulfate starting 03/23/2019 for 3 months. Subjective Principal diagnosis: ESRD, Switching from PD to HD Interval history: Patient was seen and evaluated. She had no new complaints. Her ROS is otherwise stable. Objective - Vital Signs Vital signs: Vital Signs Temp Pulse Resp BP Pulse Ox 03/22/19 06:50 98.4 F 81 16 125/77 97 03/22/19 03:35 97.6 F 79 16 131/72 97 03/21/19 23:22 98.2 F 70 16 122/76 98 03/21/19 18:38 98.7 F 81 15 95/63 98 03/21/19 16:20 98.0 F 81 15 107/66 98 03/21/19 10:41 98.8 F 72 18 131/73 99 Intake and Output 03/21/19 03/22/19 03/22/19 23:59 07:59 15:59 Intake Total 160 / 160 0 / 0 Output Total 0 / 0 0 / 0 Balance 160 / 160 0 / 0 Intake: IV Fluids 100 / 100 Zosyn 3.375 GM In 0.9 % Sodium 100 / 100 Chloride (Mini-Bag +) 100 ML @ 25 mls/hr IVPB Q12HR [facility] Rx#: [id number] Oral 60 / 60 0 / 0 Output: Urine 0 / 0 0 / 0 Other: Weight 55.8 kg - General Appearance General appearance: Present: well-developed, well-nourished EENT: Present: ATNC Neck: Present: supple Cardiology: Present: regular rate Neurologic: Present: alert and oriented x3 - Lab 03/22/19 03:07 03/22/19 03:07 Most recent lab results Calcium 7.9 mg/dL (8.6-10.3) L 03/22/19 03:07 Phosphorus 10.8 mg/dL (2.7-4.5) H 03/13/19 03:55 Magnesium 1.8 mg/dL (1.6-2.6) 03/13/19 03:55 Consult Discharge Plan - Plan Referrals: Fausto Gao DO [Primary Care Provider] -
--- NOTE | 2019-03-22 12:44 | Internal Med Progress Note ---
Hospitalist Progress Note - Encounter Date of Encounter: 03/22/19 Time of Encounter: 11:20 - Subjective Interval History: Patient lying down in bed. Complains of pain in her lower extremities. Denies any fevers or chills. No nausea or vomiting. No palpitations. No chest pain. No diarrhea. - Exam Vitals: Temp Pulse Resp BP Pulse Ox 98.1 F 77 16 102/62 96 03/22/19 10:59 03/22/19 10:59 03/22/19 10:59 03/22/19 10:59 03/22/19 10:59 Exam: General: Patient is alert, mild distress, oriented x 3 ENT: Mucous membranes moist Respiratory: Decreased breath sounds at both bases Cardiovascular: Regular rate and rhythm. s1 and s2 normal No clicks, rubs, gallops, or murmurs. No pedal edema Abdomen: Abdomen is soft, nontender. 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 Appears to be worsening. Neuro: Alert oriented x 3 normal cranial nerves, no focal deficits - Assessment and Plan (1) Peritoneal dialysis catheter infection Current Visit: Yes Status: Acute Assessment and Plan: Wound cultures growing Staphylococcus species. Broadly sensitive. Patient is currently receiving vancomycin and Zosyn. Infectious disease following. We will most likely stop vancomycin tomorrow. WBC count is trending down. (2) End-stage renal disease on hemodialysis Current Visit: Yes Status: Acute Assessment and Plan: Plan to place permanent catheter tomorrow. Will keep nothing by mouth after midnight. Check PT/INR. (3) Aortic aneurysm Current Visit: Yes Status: Acute Assessment and Plan: Aortic aneurysm needing repair. Patient considering this. Will most likely need to be transferred to tertiary care center for this procedure. (4) Elevated troponin Current Visit: Yes Status: Acute Assessment and Plan: Non-ST elevation [place]. Cardiology evaluated patient and recommended left heart catheterization. However in case she needs thoracic aortic aneurysm repair, this procedure will most likely need to be done after the repair is done. Will discuss with patient and family to monitor and make arrangements for this. (5) Hypertensive renal disease with renal failure Current Visit: Yes Status: Chronic Assessment and Plan: Blood pressure is well controlled. Continue current medications (6) Uremia Current Visit: Yes Status: Resolved (7) Chronic systolic heart failure Current Visit: Yes Status: Chronic Assessment and Plan: Volume management with hemodialysis. (8) Ischemic cardiomyopathy Current Visit: Yes Status: Acute Assessment and Plan: Volume management with hemodialysis. Continue Lopressor, lisinopril, Imdur. (9) Dysphagia Current Visit: Yes Status: Acute Assessment and Plan: Patient is currently tolerating diet well. (10) Debility Current Visit: Yes Status: Acute Assessment and Plan: Generalized weakness. Recommended placement to skilled rehabilitation. However patient not willing to consider this at this time. 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 Nephrology following. Continue local wound care. (12) CHF (congestive heart failure) Current Visit: Yes Status: Acute Assessment and Plan: Management as above (13) Coronary artery disease Current Visit: Yes Status: Acute Assessment and Plan: Continue aspirin, statin, beta eloy. Plavix on hold in anticipation for permanent catheter placement. - Time Spent with Patient Total time spent is greater than 50% in coordination of care (as documented) at patient's floor/unit and/or counseling patient: Internal Medicine: Result - Labs CBC & Chem 7: 03/22/19 03:07 03/22/19 03:07 Labs: Short CBC 03/22/19 Range/Units 03:07 WBC 12.4 H (4.3-11.1) K/mcL Hgb 9.4 L (11.5-15.4) g/dL Hct 31.6 L (35.3-44.9) % Plt Count 172 (140-400) K/mcL BMP 03/22/19 03:07 Sodium 135 L Potassium 4.7 Chloride 95 L Carbon Dioxide 32 H BUN 38 H Creatinine 3.83 H Glucose 94 Calcium 7.9 L - ABG Interpretation ABG results: PT/INR, D-dimer PT 16.0 Seconds (9.4-12.1) H 03/19/19 13:01 Consult Discharge Plan - Plan Referrals: Fausto Gao DO [Primary Care Provider] - (1) Peritoneal dialysis catheter infection Qualifiers: Encounter type: initial encounter Qualified Code(s): T85.71XA - Infection and inflammatory reaction due to peritoneal dialysis catheter, initial encounter (3) Aortic aneurysm Qualifiers: Aortic location: thoracic aorta Presence of rupture: without rupture Qualifi ed Code(s): I71.2 - Thoracic aortic aneurysm, without rupture (9) Dysphagia Qualifiers: Dysphagia type: oropharyngeal phase Qualified Code(s): R13.12 - Dysphagia, oropharyngeal phase (12) CHF (congestive heart failure) Qualifiers: Heart failure type: systolic Heart failure chronicity: chronic Qualified Code(s): I50.22 - Chronic systolic (congestive) heart failure (13) Coronary artery disease Qualifiers: Coronary Disease-Associated Artery/Lesion type: [place] artery [place] vs. transplanted heart: [place] heart Associated angina: without angina Qualified Code(s): I25.10 - Atherosclerotic heart disease of [place] coronary artery without angina pectoris
[2019-03-22] MEDS: *HR* OxyCODONE/APAP 5/325 TABLET PO PRN ×2 (14:57→21:16)
[2019-03-23 03:18] LABS: Hematocrit 30.7 % (35.3-44.9); Hemoglobin 9.2 g/dL (11.5-15.4); Immature Platelets 2.3 % (1.1-6.1); Mean Corpuscular Hemoglobin 29.3 pg (28.0-33.3); Mean Corpuscular Volume 97.8 fL (83.0-100.0); Mean Platelet Volume 9.4 fL (9.4-12.4); Red Blood Count 3.14 M/mcL (3.82-4.97); Red Cell Distribution Width 14.9 % (11.5-14.5)
[2019-03-23 03:25] LABS: INR 1.1; Prothrombin Time 12.4 Seconds (9.4-12.1)
[2019-03-23 03:39] LABS: Calcium 7.8 mg/dL (8.6-10.3); Potassium 4.8 mEq/L (3.5-5.1)
[2019-03-23] MEDS: Piperacillin/Tazobactam 3.375 GM in 0.9 % Sodium Chloride Mini Bag 100 ML IVPB SCH (05:08)
[2019-03-23] MEDS: *HR* Heparin 5,000 UNIT/ML VIAL SQ SCH ×2 (05:08→17:20)
[2019-03-23] MEDS ORDERED: GuaiFENesin Liq 200 MG/10 ML UDC PO ONE (05:17)
[2019-03-23] MEDS ORDERED: Aminoglycoside Consult 1 EACH MC ONE (07:20)
[2019-03-23] MEDS ORDERED: 0.9 % Sodium Chloride 250 ML IVC PRN (07:53)
[2019-03-23] MEDS ORDERED: *HR* Heparin 10,000 UNIT/10 ML VIAL IV PRN (07:53)
[2019-03-23] MEDS ORDERED: 0.9 % Sodium Chloride 1,000 ML PRIME SCH (08:00)
[2019-03-23] MEDS ORDERED: 0.9 % Sodium Chloride 2,000 ML ONE (08:31)
[2019-03-23] MEDS ORDERED: Albumin 25% 25gram/100mL 25 GM/100 ML IV.SOLN IVPB ONE (09:36)
[2019-03-23] MEDS ORDERED: Albumin 25% 12.5gm/50mL 25.0 GM/100 ML IV.SOLN ONE (09:45)
[2019-03-23] MEDS: Folic Acid 1 MG TABLET PO SCH (10:31)
[2019-03-23] MEDS: Isosorbide MONOnitrate (24 HR) 60 MG TAB.ER.24H PO SCH (10:31)
[2019-03-23] MEDS: Aspirin 81 MG TAB.CHEW PO SCH (10:31)
--- NOTE | 2019-03-23 10:55 | Infectious Disease Progress No ---
ID Progress Note Date of Encounter: 03/23/19 Time of Encounter: 10:30 - Subjective Subjective: Patient seen and examined at dialysis this morning. She is tired appearing but answers all questions and states that she has no complaints at this time. She denies any abdominal pain. Denies any fevers, chills, chest pain, shortness of breath, nausea, vomiting, or diarrhea. She does have a cough states that it is subjectively improved. Her wound cultures over the weekend grew Staphylococcus Schleiferi. Blood cultures from 03/18 have no growth to date. - Objective CBC & Chem 7: 03/23/19 03:05 03/23/19 03:05 - Exam Vitals: Temp Pulse Resp BP Pulse Ox 97.5 F L 77 18 139/82 99 03/23/19 06:45 03/23/19 06:45 03/23/19 06:45 03/23/19 06:45 03/23/19 10:38 Exam: General: frail appearing elderly female resting comfortably in bed HEENT: head is atraumatic and normocephalic, pupils are equal, EOMI, external ears and nares patent. mucosa moist. Neck: no JVD, trahcea midline Chest: midline sternotomy scar, symmetrical chest wall rise, no tenderness to palpation Cardiovascular: regular rate and rhythm, no murmurs Respiratory: clear to auscultation bilaterally Abdomen: Surgical incisions are healing, no surrounding erythema. Abdomen is soft and nontender. No guarding or rigidity. Extremities: healing ulcers present on bilateral lower extremities Neurological: alert and oriented, no obvious focal neurological deficits Psych: appropriate mood and affect - Assessment and Plan (1) Sepsis Current Visit: Yes Status: Acute -Leukocytosis with tachycardia. Likely secondary to infected peritoneal dialysis catheter with subsequent peritonitis -Supported by positive peritoneal fluid cultures for staphylococcus shleiferi -Catheter removed and ascites drained by surgery -Leukocytosis resolved, afebrile, and hemodynamically stable -Currently on vancomycin and Zosyn Plan: -Discontinued vancomycin and zosyn -Started Augmentin, renally dosed thus Augmentin 500mg Q24H for 7 days -On days that patient will have dialysis give augmentin after dialysis SNOMED Code(s): 22454975 (2) Peritonitis associated with peritoneal dialysis Current Visit: Yes Status: Acute -Concern is high for sepsis secondary to peritonitis from infected peritoneal dialysis catheter -Her peritoneal fluid and catheter culture grew staph Schleiferi -Therefore suspicion was high for peritonitis associated with peritoneal dialysis -The catheter was removed and ascites was drained by surgery -Treated with vancomycin and Zosyn over the past few days Plan: -Sepsis resolved, leukocytosis resolved, afebrile, hemodynamically stable -Discontinued vanc/zosyn -Started augmentin 500mg Q24H for 7 days SNOMED Code(s): 482763506 (3) End-stage renal disease on hemodialysis Current Visit: Yes Status: Acute -Currently on hemodialysis by nephrology -Renally dosing Augmentin SNOMED Code(s): 757857067 (4) Aortic aneurysm Current Visit: Yes Status: Acute -CT surgery recommending repair of aneurysm measuring 8.8cm x 5.2cm after treatment of acute illness Qualifiers: Aortic location: thoracic aorta Presence of rupture: without rupture Qualified Code(s): I71.2 - Thoracic aortic aneurysm, without rupture SNOMED Code(s): 44315834 Consult Discharge Plan - Plan Referrals: Fausto Gao DO [Primary Care Provider] - - Attending Attestation I examined this patient and my medical decision-making was reviewed with the Resident Physician. I agree with the documented findings, disposition and treatment plan as described except to the extent set forth below. Assessment and plan: Sepsis Peritonitis associated with peritoneal dialysis causative organism corynebacterium and Staphylococcus schleiferi methicilin sensitive End-stage renal disease on hemodialysis Aortic aneurysm Recommendations Continue Zosyn for now. on discharge switch to oral augmentin
[2019-03-23] MEDS: Sodium Thiosulfate 25 GM in EMPTY BAG 1 EACH IVPB SCH (11:00)
--- NOTE | 2019-03-23 12:25 | Nephrology Progress Note ---
Date of Encounter: 03/23/19 Time of Encounter: 12:25 - Assessment and Plan (1) ESRD (end stage renal disease) Current Visit: Yes Status: Chronic She was converted to Hemodialyis earlier in this admission due to very poor compliance with PD prior to arrival. HD MWF. Renal vitamins. Renal dose medications. Renal diet. Additional dialysis and ultrafiltration as needed. Patient was seen on dialysis. Once infection is cleared plan for placement of her tunneled dialysis catheter. (2) Erythema of lower limb Current Visit: Yes Status: Acute concern for calciphylaxsis. Evaluated by vascular surgery. Recommend wound nurse consult. Plan for empiric treatment with sodium thiosulfate starting 03/23/2019 for 3 months. (3) Hypertension Current Visit: Yes Status: Chronic Titrate blood pressure medication as needed. Qualifiers: Hypertension type: renovascular hypertension Qualified Code(s): I15.0 - Renovascular hypertension (4) Uremia Current Visit: Yes Status: Resolved (5) Hypokalemia Current Visit: Yes Status: Acute (6) Anemia Current Visit: Yes Status: Acute Qualifiers: Anemia type: unspecified type Qualified Code(s): D64.9 - Anemia, unspecified (7) PD catheter dysfunction Current Visit: Yes Status: Acute Qualifiers: Encounter type: initial encounter Qualified Code(s): T85.611A - Breakdown (mechanical) of intraperitoneal dialysis catheter, initial encounter Subjective Principal diagnosis: ESRD, Switching from PD to HD Interval history: Patient was seen and evaluated. She had no new complaints. Her ROS is otherwise stable. Objective - Vital Signs Vital signs: Vital Signs Temp Pulse Resp BP Pulse Ox 03/23/19 12:16 97.3 F L 18 134/67 03/23/19 12:00 118/74 03/23/19 11:45 104/63 03/23/19 11:30 103/65 03/23/19 11:15 100/63 03/23/19 11:00 102/63 03/23/19 10:45 105/70 03/23/19 10:38 99 03/23/19 10:30 95/61 03/23/19 10:15 96/59 03/23/19 10:00 91/60 03/23/19 09:45 94/52 03/23/19 09:30 96/59 03/23/19 09:15 79/51 03/23/19 09:00 98/60 03/23/19 08:45 117/70 03/23/19 08:30 97.6 F 18 125/71 03/23/19 06:45 97.5 F L 77 18 139/82 99 03/23/19 03:59 98.0 F 76 18 125/68 98 03/22/19 23:37 98.3 F 74 18 125/66 98 03/22/19 20:27 97 03/22/19 20:24 98.3 F 78 17 112/67 97 03/22/19 15:14 98.3 F 82 16 102/66 97 Intake and Output 03/22/19 03/23/19 03/23/19 23:59 07:59 15:59 Intake Total 160 / 160 0 / 0 800 / 800 Output Total 1000 / 1000 Balance 160 / 160 0 / 0 -200 / -200 Intake: IV Fluids 100 / 100 200 / 200 Flexbumin 25 gm In 100 ml @ 60 100 / 100 mls/hr IVPB ONCE ONE Rx#: [id number] Zosyn 3.375 GM In 0.9 % Sodium 100 / 100 Chloride (Mini-Bag +) 100 ML @ 25 mls/hr IVPB Q12HR [facility] Rx#: [id number] Sodium Thiosulfate 25 GM In 100 / 100 Empty Bag 1 Each @ 100 mls/hr IVPB MoWeFr [facility] Rx#:[id number] Oral 60 / 60 0 / 0 0 / 0 Intake, Rinseback and Flushes 600 / 600 Output: Total Dialysis (HD) Output 1000 / 1000 Other: Meal NPO Percent of Meal Consumed 0% Weight 55.5 kg Blood Glucose* 87 79 Hemodialysis Net Fluid Removed 1000 (mL) Patient Weight 03/23/19 23:59 Weight 55.5 kg - General Appearance General appearance: Present: well-developed, well-nourished, chronically ill, frail EENT: Present: ATNC Neck: Present: supple Cardiology: Present: no edema, regular rate Integumentary: Present: warm and dry Psychiatric: Present: mood/affect appropriate - Lab 03/23/19 03:05 03/23/19 03:05 Most recent lab results Calcium 7.8 mg/dL (8.6-10.3) L 03/23/19 03:05 Phosphorus 10.8 mg/dL (2.7-4.5) H 03/13/19 03:55 Magnesium 1.8 mg/dL (1.6-2.6) 03/13/19 03:55 Consult Discharge Plan - Plan Referrals: Fausto Gao DO [Primary Care Provider] -
--- NOTE | 2019-03-23 12:40 | Internal Med Progress Note ---
Hospitalist Progress Note - Encounter Date of Encounter: 03/23/19 Time of Encounter: 10:50 - Subjective Interval History: Patient seen in dialysis. She denies any new complaints. No nausea or vomiting. No abdominal pain. Doing better overall. No fevers reported overnight. - Exam Vitals: Temp Pulse Resp BP Pulse Ox 97.3 F L 77 18 134/67 99 03/23/19 12:16 03/23/19 06:45 03/23/19 12:16 03/23/19 12:16 03/23/19 10:38 Exam: General: Patient is alert, no acute distress, oriented x 3 ENT: Mucous membranes moist Respiratory: Good respiratory effort. Normal breath sounds. No wheezing or crackles. Cardiovascular: Regular rate and rhythm. s1 and s2 normal No clicks, rubs, gallops, or murmurs. No pedal edema Abdomen: Abdomen is soft, nontender. Bowel sounds are present Musculoskeletal: Spontaneously moving all extremities Skin: Erythema over her shins of both lower extremities. 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 lesions Neuro: Alert oriented x 3 normal cranial nerves, no focal deficits - Assessment and Plan (1) Peritoneal dialysis catheter infection Current Visit: Yes Status: Acute Assessment and Plan: resolving. No signs of sepsis. Blood cultures have been negative. WBC count trending down. Will await infectious disease recommendations for antibiotic duration. (2) End-stage renal disease on hemodialysis Current Visit: Yes Status: Acute Assessment and Plan: Currently on hemodialysis. Plan for permanent dialysis catheter placement toda y. Discussed with interventional radiology. (3) Aortic aneurysm Current Visit: Yes Status: Chronic Assessment and Plan: Patient may need transfer to tertiary care center after placement of a permanent dialysis catheter to further evaluate this as patient is considering surgery. (4) Elevated troponin Current Visit: Yes Status: Acute Assessment and Plan: Concern for non-ST elevation [place]. Discussed with cardiology. Awaiting cardiac workup pending recent of dialysis catheter. However if patient wishes to undergo aortic aneurysm repair, this may need to be held off on till surgery is completed. (5) Hypertensive renal disease with renal failure Current Visit: Yes Status: Chronic Assessment and Plan: Fairly controlled. (6) Uremia Current Visit: Yes Status: Resolved (7) Chronic systolic heart failure Current Visit: Yes Status: Chronic Assessment and Plan: Volume management with hemodialysis. Continue current medications (8) Ischemic cardiomyopathy Current Visit: Yes Status: Acute (9) Dysphagia Current Visit: Yes Status: Acute (10) Debility Current Visit: Yes Status: Acute Assessment and Plan: Recommended placement to skilled rehabilitation. However patient wishes to go home at discharge. (11) Erythema of lower limb Current Visit: Yes Status: Acute Assessment and Plan: Suspecting calciphylaxis. Patient to receive sodium thiosulfate postdialysis. Continue local wound care (12) CHF (congestive heart failure) Current Visit: Yes Status: Chronic Assessment and Plan: Management as above. Responded well to Hemodialysis so far. (13) Coronary artery disease Current Visit: Yes Status: Acute - Time Spent with Patient Total time spent is greater than 50% in coordination of care (as documented) at patient's floor/unit and/or counseling patient: Internal Medicine: Result - Labs CBC & Chem 7: 03/23/19 03:05 03/23/19 03:05 Labs: Short CBC 03/23/19 Range/Units 03:05 WBC 10.8 (4.3-11.1) K/mcL Hgb 9.2 L (11.5-15.4) g/dL Hct 30.7 L (35.3-44.9) % Plt Count 211 (140-400) K/mcL BMP 03/23/19 03:05 Sodium 133 L Potassium 4.8 Chloride 93 L Carbon Dioxide 32 H BUN 49 H Creatinine 4.23 H Glucose 88 Calcium 7.8 L - ABG Interpretation ABG results: PT/INR, D-dimer PT 12.4 Seconds (9.4-12.1) H 03/23/19 03:05 Consult Discharge Plan - Plan Referrals: Fausto Gao DO [Primary Care Provider] - (1) Peritoneal dialysis catheter infection Qualifiers: Encounter type: initial encounter Qualified Code(s): T85.71XA - Infection and inflammatory reaction due to peritoneal dialysis catheter, initial encounter (3) Aortic aneurysm Qualifiers: Aortic location: thoracic aorta Presence of rupture: without rupture Qualified Code(s): I71.2 - Thoracic aortic aneurysm, without rupture (9) Dysphagia Qualifiers: Dysphagia type: oropharyngeal phase Qualified Code(s): R13.12 - Dysphagia, oropharyngeal phase (12) CHF (congestive heart failure) Qualifiers: Heart failure type: systolic Heart failure chronicity: chronic Qualified Code(s): I50.22 - Chronic systolic (congestive) heart failure (13) Coronary artery disease Qualifiers: Coronary Disease-Associated Artery/Lesion type: [place] artery [place] vs. transplanted heart: [place] heart Associated angina: without angina Qualified Code(s): I25.10 - Atherosclerotic heart disease of [place] coronary artery without angina pectoris
[2019-03-23] MEDS: Amoxicillin/Clavulanate 500 MG TABLET PO SCH (16:10)
[2019-03-23] MEDS: *HR* OxyCODONE/APAP 5/325 TABLET PO PRN (20:15)
[2019-03-24] MEDS ORDERED: GuaiFENesin Liq 200 MG/10 ML UDC PO ONE (03:40)
[2019-03-24 04:06] LABS: Hematocrit 30.8 % (35.3-44.9); Hemoglobin 9.3 g/dL (11.5-15.4); Mean Corpuscular HGB Conc 30.2 g/dL (31.6-35.5); Mean Corpuscular Hemoglobin 29.5 pg (28.0-33.3); Mean Corpuscular Volume 97.8 fL (83.0-100.0); Mean Platelet Volume 9.5 fL (9.4-12.4); Platelet Count 207 K/mcL (140-400); Red Blood Count 3.15 M/mcL (3.82-4.97)
[2019-03-24 04:17] LABS: Calcium 8.4 mg/dL (8.6-10.3); Potassium 3.8 mEq/L (3.5-5.1)
[2019-03-24] MEDS: *HR* Heparin 5,000 UNIT/ML VIAL SQ SCH ×2 (05:54→18:38)
[2019-03-24] MEDS: Isosorbide MONOnitrate (24 HR) 60 MG TAB.ER.24H PO SCH (08:00)
[2019-03-24] MEDS: Folic Acid 1 MG TABLET PO SCH (08:01)
[2019-03-24] MEDS: Aspirin 81 MG TAB.CHEW PO SCH (08:01)
[2019-03-24 09:19] LABS: Albumin 2.6 g/dL (3.5-5.7); Phosphorous 4.6 mg/dL (2.7-4.5)
--- NOTE | 2019-03-24 09:49 | Infectious Disease Progress No ---
ID Progress Note Date of Encounter: 03/24/19 Time of Encounter: 09:47 - Subjective Subjective: Patient seen and examined at bedside this morning, she is resting comfortable and denies any complaints. She denies any pain, fevers, chills, shortness of breath. Her white blood cell count continues remained within normal limits, she is afebrile and hemodynamically stable. Started on Augmentin yesterday renally dosed - Objective CBC & Chem 7: 03/25/19 00:17 03/25/19 00:17 - Exam Vitals: Temp Pulse Resp BP Pulse Ox 97.6 F 81 15 152/84 99 03/24/19 06:45 03/24/19 06:45 03/24/19 06:45 03/24/19 06:45 03/24/19 07:50 Exam: General: frail appearing elderly female resting comfortably in bed HEENT: head is atraumatic and normocephalic, pupils are equal, EOMI, external ears and nares patent. mucosa moist. Neck: no JVD, trahcea midline Chest: midline sternotomy scar, symmetrical chest wall rise, no tenderness to palpation Cardiovascular: regular rate and rhythm, no murmurs Respiratory: clear to auscultation bilaterally Abdomen: Surgical incisions are healing, no surrounding erythema. Abdomen is soft and nontender. No guarding or rigidity. Extremities: healing ulcers present on bilateral lower extremities Neurological: alert and oriented, no obvious focal neurological deficits Psych: appropriate mood and affect - Assessment and Plan (1) Sepsis Status: Acute -Leukocytosis with tachycardia. Likely secondary to infected peritoneal dialysis catheter with subsequent peritonitis -Supported by positive peritoneal fluid cultures for staphylococcus shleiferi -Catheter removed and ascites drained by surgery -Leukocytosis resolved, afebrile, and hemodynamically stable -Started on Augmentin Plan: -Discontinued vancomycin and zosyn -Will continue Augmentin, renally dosed at 500mg Q24H, for 7 days through 03/29/19 -On days that patient will have dialysis give augmentin after dialysis Qualifiers: Sepsis type: sepsis due to unspecified organism Qualified Code(s): A41.9 - Sepsis, unspecified organism SNOMED Code(s): 32033574 (2) Peritonitis associated with peritoneal dialysis Status: Acute -Concern is high for sepsis secondary to peritonitis from infected peritoneal dialysis catheter -Her peritoneal fluid and catheter culture grew staph Schleiferi -Therefore suspicion was high for peritonitis associated with peritoneal dialysis -The catheter was removed and ascites was drained by surgery -Treated with vancomycin and Zosyn over the past few days Plan: -Sepsis resolved, leukocytosis resolved, afebrile, hemodynamically stable -Discontinued vanc/zosyn -Started augmentin 500mg Q24H for 7 days through 03/29/19 SNOMED Code(s): 572763880 (3) End-stage renal disease on hemodialysis Status: Acute -Currently on hemodialysis by nephrology -Renally dosing Augmentin SNOMED Code(s): 105464183 (4) Aortic aneurysm Status: Acute -CT surgery recommending repair of aneurysm measuring 8.8cm x 5.2cm after treatment of acute illness Qualifiers: Aortic location: thoracic aorta Presence of rupture: without rupture Qualified Code(s): I71.2 - Thoracic aortic aneurysm, without rupture SNOMED Code(s): 51393993 Consult Discharge Plan - Plan Instructions: Heart Failure (DC), Peripheral Vascular Disorders (DC), Anemia (GEN) Referrals: Fausto Gao DO [Primary Care Provider] - - Attending Attestation I examined this patient and my medical decision-making was reviewed with the Resident Physician. I agree with the documented findings, disposition and treatment plan as described except to the extent set forth below. patient seen and examined going well clinically Assessment and plan: Sepsis Peritonitis associated with peritoneal dialysis causative organism corynebacterium and Staphylococcus schleiferi methicilin sensitive End-stage renal disease on hemodialysis Aortic aneurysm Recommendations Continue Zosyn for now. on discharge switch to oral augmentin
[2019-03-24] MEDS ORDERED: Heparin 1,000 UNITS/500 mL 500 ML ONE (12:39)
[2019-03-24] MEDS ORDERED: *HR* Heparin 5,000 UNIT/ML VIAL ONE (13:06)
--- NOTE | 2019-03-24 14:26 | Discharge Summary ---
- NOTES TO OUTPATIENT PROVIDER Notes to Outpatient Provider: Patient with a history of aortic dissection, aneurysm repair, end-stage renal disease on peritoneal dialysis was brought to the ER with complaints of altered mental status. She was found to have uremic syndrome with elevated BUN and creatinine there was concern about her dialysis site. She was evaluated by nephrology and then underwent placement of temporary dialysis catheter to initiate hemodialysis. She has been receiving hemodialysis since then. BiPAP. Patient had been on Plavix which was held in anticipation of placement of permanent dialysis catheter. In the interim, patient is intolerant worsening pleural effusion and underwent thoracentesis. She is also having leukocytosis and analysis of her peritoneal fluid suggested infection. Patient received antibiotics for this and peritoneal dialysis catheter was removed. Peritoneal fluid cultures are growing Staphylococcus schleferi sensitive to penicillins. She received IV antibiotics and has now been transitioned to Augmentin. Per infectious disease, she will need this antibiotic till 03/29. Patient has had a permanent dialysis catheter placed today. During her stay here, she also was also diagnosed with non-ST elevation SD as she developed troponin elevation to a peak of 5.7. She was started on IV heparin and cardiology evaluated her. Left heart catheterization was not done as Plavix was being held for permanent dialysis catheter placement. Patient underwent CT angiogram of her chest during her stay here which showed a large complex thoracic aortic aneurysm which appears to arise about the location of previous aortic repair. Measures 8.8 x 5.2 cm. Cardio thoracic surgery evaluated the patient and recommended transfer to tertiary care center for surgery. I have called [facility] and they have recommended that the patient be transferred to [facility]. [facility] has been called and accepted the patient. Patient will be transferred there once she has a bed available. Orders not resulted at time of discharge: Pending orders 03/16/19 16:04 Urinalysis Reflex Cult & Micro [URIN] Routine 03/19/19 19:56 Culture,Anaerobic [RM] Routine 03/24/19 IR cvc insrt tunnel wo prt/veneer grader [IR] Routine IR us guide vascular access [IR] Routine 03/25/19 04:00 Chem 7 [Basic Metabolic Panel] AM 0400 Complete Blood Count w/o Diff [HEME] AM 0400 Vancomycin,Random AM 0400 03/26/19 04:00 Chem 7 [Basic Metabolic Panel] AM 0400 Complete Blood Count w/o Diff [HEME] AM 0400 Date of Encounter: 03/24/19 Time of Encounter: 14:20 - Discharge Diagnosis (1) Peritoneal dialysis catheter infection Priority: Primary Status: Acute Qualifiers: Encounter type: initial encounter Qualified Code(s): T85.71XA - Infection and inflammatory reaction due to peritoneal dialysis catheter, initial encounter (2) Erythema of lower limb Priority: Secondary Status: Acute Assessment and Plan: 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 (3) End-stage renal disease on hemodialysis Priority: Secondary Status: Acute (4) Aortic aneurysm Priority: Secondary Status: Acute Qualifiers: Aortic location: thoracic aorta Presence of rupture: without rupture Qualified Code(s): I71.2 - Thoracic aortic aneurysm, without rupture (5) Elevated troponin Priority: Secondary Status: Acute (6) Hypertensive renal disease with renal failure Priority: Secondary Status: Chronic (7) Uremia Priority: Secondary Status: Resolved (8) Chronic systolic heart failure Priority: Secondary Status: Chronic (9) Ischemic cardiomyopathy Priority: Secondary Status: Acute (10) Dysphagia Priority: Secondary Status: Acute Qualifiers: Dysphagia type: oropharyngeal phase Qualified Code(s): R13.12 - Dysphagia, oropharyngeal phase (11) Debility Priority: Secondary Status: Acute (12) CHF (congestive heart failure) Priority: Secondary Status: Acute Qualifiers: Heart failure type: systolic Heart failure chronicity: chronic Qualified Code(s): I50.22 - Chronic systolic (congestive) heart failure (13) Coronary artery disease Priority: Secondary Status: Acute Qualifiers: Coronary Disease-Associated Artery/Lesion type: [place] artery [place] vs. transplanted heart: [place] heart Associated angina: without angina Qualified Code(s): I25.10 - Atherosclerotic heart disease of [place] coronary artery without angina pectoris (14) Sepsis Priority: Secondary Status: Acute Assessment and Plan: Due to peritonitis due to Staphylococcus schleiferi Qualifiers: Sepsis type: sepsis due to unspecified organism Qualified Code(s): A41.9 - Sepsis, unspecified organism Hospital course: Ms. Austin is a 73 year old female Patient with a history of aortic dissection, aneurysm repair, end-stage renal disease on peritoneal dialysis was brought to the ER with complaints of altered mental status. She was found to have uremic syndrome with elevated BUN and creatinine there was concern about her dialysis site. She was evaluated by nephrology and then underwent placement of temporary dialysis catheter to initiate hemodialysis. She has been receiving hemodialysis since then. BiPAP. Patient had been on Plavix which was held in anticipation of placement of permanent dialysis catheter. In the interim, patient is intolerant worsening pleural effusion and underwent thoracentesis. She is also having leukocytosis and analysis of her peritoneal fluid suggested infection. Patient received antibiotics for this and peritoneal dialysis catheter was removed. Peritoneal fluid cultures are growing Staphylococcus schleferi sensitive to penicillins. She received IV antibiotics and has now been transitioned to Augmentin. Per infectious disease, she will need this antibiotic till 03/29. Patient has had a permanent dialysis catheter placed today. During her stay here, she also was also diagnosed with non-ST elevation SD as she developed troponin elevation to a peak of 5.7. She was started on IV heparin and cardiology evaluated her. Left heart catheterization was not done as Plavix was being held for permanent dialysis catheter placement. Patient underwent CT angiogram of her chest during her stay here which showed a large complex thoracic aortic aneurysm which appears to arise about the location of previous aortic repair. Measures 8.8 x 5.2 cm. Cardio thoracic surgery evaluated the patient and recommended transfer to tertiary care center for surgery. I have called [facility] and they have recommended that the patient be transferred to [facility]. [facility] has been called and accepted the patient. Patient will be transferred there once she has a bed available. 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 She is receiving sodium thiosulfate after dialysis Discharge discussed with: patient, apartment leasing consultant - Time Spent with Patient Total time spent providing and/or coordinating discharge services: Time spent: Greater than 30 minutes (50 min) - Discharge Medications Prescriptions: New Amoxicillin/Clavulanate [Augmentin] 500 mg PO Q24H tablet Ferrous Sulfate 325 mg PO TIDWM tablet Lisinopril [Zestril] 2.5 mg PO DAILY tablet Metoprolol [Lopressor] 12.5 mg PO BID tablet Aspirin 81 mg PO DAILY tab.chew Folic Acid 1 mg PO DAILY tablet Continue Simvastatin [Zocor] 40 mg PO HS Isosorbide MONOnitrate (24 HR) [Imdur] 60 mg PO DAILY Ergocalciferol (VITAMIN D2) [Vitamin D2 (50,000 UNIT)] 50,000 unit PO 3XW MDD mon, wed, fri Clopidogrel [Plavix] 75 mg PO DAILY Calcitriol [Rocaltrol] 0.25 mcg PO DAILY Calcium Acetate [Phos-LO] 2 cap PO TID [place]-3/Dha/Epa/Fish Oil [Fish Oil 1,000 mg Softgel] 1 cap PO TID Sodium Bicarbonate 1,300 mg PO BID Ascorbate Calcium [Vitamin C] 500 mg PO DAILY Discontinued amLODIPine [Norvasc] 10 mg PO BID hydrALAZINE [HydrALAZINE] 25 mg PO BID Magnesium Oxide [Mag-Ox] 400 mg PO BID 7 Days #14 tablet Furosemide [Lasix] 40 mg PO 4XW Home Medications: Clopidogrel [Plavix] 75 mg PO DAILY 06/15/16 [History] Ergocalciferol (VITAMIN D2) [Vitamin D2 (50,000 UNIT)] 50,000 unit PO 3XW MDD mon, wed, fri 06/15/16 [History] Isosorbide MONOnitrate (24 HR) [Imdur] 60 mg PO DAILY 06/15/16 [History] Simvastatin [Zocor] 40 mg PO HS 06/15/16 [History] Calcitriol [Rocaltrol] 0.25 mcg PO DAILY 03/21/18 [History] Calcium Acetate [Phos-LO] 2 cap PO TID 03/21/18 [History] [place]-3/Dha/Epa/Fish Oil [Fish Oil 1,000 mg Softgel] 1 cap PO TID 03/21/18 [History] Sodium Bicarbonate 1,300 mg PO BID 03/21/18 [History] Ascorbate Calcium [Vitamin C] 500 mg PO DAILY 03/14/19 [History] Amoxicillin/Clavulanate [Augmentin] 500 mg PO Q24H tablet 03/24/19 [Rx] Aspirin 81 mg PO DAILY tab.chew 03/24/19 [Rx] Ferrous Sulfate 325 mg PO TIDWM tablet 03/24/19 [Rx] Folic Acid 1 mg PO DAILY tablet 03/24/19 [Rx] Lisinopril [Zestril] 2.5 mg PO DAILY tablet 03/24/19 [Rx] Metoprolol [Lopressor] 12.5 mg PO BID tablet 03/24/19 [Rx] Allergies/Adverse Reactions: Allergy/AdvReac Type Severity Reaction Status Date / Time Iodinated Contrast- Oral and AdvReac Nausea Verified 03/21/18 14:52 IV Dye Date of admission: 03/12/19 21:20 Primary care physician: Fausto Gao DO Consults: 03/12/19 18:24 Consult to Interventional Radiology [CONS] Stat Consulting Provider: Radiology Interventional Cols Reason for Consult: HD catheter placement Time Notified: 18:27 Call Completed: No 03/12/19 18:59 Consult to Nephrology [CONS] Stat Consulting Provider: Kidney Ashley/SHELDON/BETHEL/ROEL Reason for Consult: hyperkalemia Time Notified: 19:00 Call Completed: Yes 03/13/19 07:16 Consult to Interventional Radiology [CONS] Routine Consulting Provider: Radiology Interventional Cols Reason for Consult: Please evaluate for Permacath placement. Call Completed: Yes 03/13/19 07:30 Consult to Dialysis [CONS] ONCE 03/13/19 11:26 Consult to Financial Services Consultant [CONS] Routine Reason for SW Consult: Please arrange an outpt HD chair. She will not be returning to PD. 03/14/19 07:15 Consult to Dialysis [CONS] ONCE 03/15/19 18:06 Consult to Physical Therapy [CONS] Routine Comment: Evaluate, develop and implement POC Reason for Consult: DEBILITY. ESRD. Does patient have active BEDREST order?: No Is patient medically & hemodynamically stable?: Yes 03/16/19 07:00 Consult to Dialysis [CONS] ONCE 03/16/19 12:39 Consult to Nurse Navigator [CONS] Routine Comment: was pd, now new hd 03/16/19 14:45 Consult to Cardiology [CONS] Routine Comment: Consulting Provider: Cardiology Ashley Reason for Consult: ELEVATED TROPONIN; POSSIBLE NSTEMI. ADMITTED WITH UREMIA/SEVERE METABOLIC ACIDOSIS. Time Notified: 14:40 Call Completed: Yes 03/18/19 07:00 Consult to Dialysis [CONS] QMWF 03/18/19 07:46 Consult to Occupational Therapy [CONS] Routine Comment: Evaluate, develop and implement POC Reason for Consult: eval for poss ecf Does patient have active BEDREST order?: No Is patient medically & hemodynamically stable?: Yes 03/18/19 12:00 Consult to Dialysis [CONS] ONCE 03/18/19 14:12 Consult to Wound Care [CONS] Routine Reason for Consult: BLE wounds Time Notified: 14:12 Call Completed: Yes 03/19/19 08:56 Consult to Interventional Radiology [CONS] Routine Consulting Provider: Radiology Interventional Cols Reason for Consult: Large left pleural effusion Time Notified: 08:59 Call Completed: Yes 03/19/19 11:32 Consult to Surgery [CONS] Routine Consulting Provider: Acute Care Surgery Reason for Consult: Peritonitis related to PD catheter Time Notified: 11:32 Call Completed: Yes 03/19/19 14:10 Consult to Infectious Diseases [CONS] Routine Consulting Provider: Infectious Disease Ashley Reason for Consult: Persistent leukocytosis/ sepsis Time Notified: 14:11 Call Completed: Yes 03/19/19 15:23 Consult to Cardiothoracic Surgery [CONS] Routine Consulting Provider: Cardiothoracic Surgery Ashley Reason for Consult: Aortic aneursym Time Notified: 15:24 Call Completed: Yes Consult to Vascular Surgery [CONS] Routine Consulting Provider: Vascular Surgery Ashley Reason for Consult: B/l lower extremity ulcers Time Notified: 15:23 Call Completed: Yes 03/20/19 07:00 Consult to Dialysis [CONS] QMWF 03/23/19 08:00 Consult to Dialysis [CONS] ONCE Discharging clinician: Steve Cutler Anticipated date of discharge: 03/24/19 - Constitutional Vitals: Temp Pulse Resp BP Pulse Ox 99.0 F 84 16 154/83 92 03/24/19 11:42 03/24/19 11:42 03/24/19 11:42 03/24/19 11:42 03/24/19 11:42 General appearance: Present: cooperative, A&O X 3, no acute distress, answers questions appropriately Exam: . - Respiratory Respiratory exam: Present: CTAB. Absent: accessory muscle use, rales, rhonchi, wheezes - Cardiovascular Cardiovascular exam: Present: RRR, +S1, +S2. 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
--- NOTE | 2019-03-24 15:35 | Nephrology Progress Note ---
Date of Encounter: 03/24/19 Time of Encounter: 15:35 - Assessment and Plan (1) ESRD (end stage renal disease) Current Visit: Yes Status: Chronic She was converted to Hemodialyis earlier in this admission due to very poor compliance with PD prior to arrival. HD MWF. Renal vitamins. Renal dose medications. Renal diet. Additional dialysis and ultrafiltration as needed. Once infection is cleared plan for placement of her tunneled dialysis catheter. She will receive sodium thiosulfate for empiric managemt of calciphylaxsis. (2) Erythema of lower limb Current Visit: Yes Status: Acute (3) Hypertension Current Visit: Yes Status: Chronic Titrate blood pressure medication as needed. Qualifiers: Hypertension type: renovascular hypertension Qualified Code(s): I15.0 - Renovascular hypertension (4) Uremia Current Visit: Yes Status: Resolved (5) Hypokalemia Current Visit: Yes Status: Acute (6) Anemia Current Visit: Yes Status: Acute Qualifiers: Anemia type: unspecified type Qualified Code(s): D64.9 - Anemia, unspecified (7) PD catheter dysfunction Current Visit: Yes Status: Acute Qualifiers: Encounter type: initial encounter Qualified Code(s): T85.611A - Breakdown (mechanical) of intraperitoneal dialysis catheter, initial encounter Subjective Principal diagnosis: ESRD, Switching from PD to HD Interval history: Patient was seen and evaluated. She had no new complaints. Her ROS is otherwise stable. Her family member is at her bedside. Objective - Vital Signs Vital signs: Vital Signs Temp Pulse Resp BP Pulse Ox 03/24/19 11:42 99.0 F 84 16 154/83 92 03/24/19 07:50 99 03/24/19 06:45 97.6 F 81 15 152/84 99 03/24/19 03:31 97.3 F L 93 16 175/97 96 03/23/19 23:12 98.3 F 88 15 163/78 98 03/23/19 20:24 98 03/23/19 18:33 99.9 F H 93 16 126/67 98 Intake and Output 03/23/19 03/24/19 03/24/19 23:59 07:59 15:59 Intake Total 390 / 390 0 / 0 0 / 0 Balance 390 / 390 0 / 0 0 / 0 Intake: Oral 390 / 390 0 / 0 0 / 0 Other: Meal Dinner NPO Percent of Meal Consumed 40% 0% Stool Size Small # Urine Diapers 1 1 # Bowel Movement Diapers 1 Weight 55.8 kg 62.9 kg Patient Weight 03/24/19 23:59 Weight 62.9 kg - General Appearance General appearance: Present: well-developed, well-nourished, chronically ill, frail EENT: Present: ATNC Neck: Present: supple Respiratory: Present: course breath sounds Cardiology: Present: regular rate Integumentary: Present: warm and dry Neurologic: Present: alert and oriented x3 - Lab 03/25/19 00:17 03/25/19 00:17 Most recent lab results Calcium 8.4 mg/dL (8.6-10.3) L 03/24/19 03:38 Phosphorus 4.6 mg/dL (2.7-4.5) H 03/24/19 03:38 Magnesium 1.8 mg/dL (1.6-2.6) 03/13/19 03:55 Consult Discharge Plan - Plan Instructions: Heart Failure (DC), Peripheral Vascular Disorders (DC), Anemia (GEN) Referrals: Fausto Gao DO [Primary Care Provider] -
[2019-03-24] MEDS: Amoxicillin/Clavulanate 500 MG TABLET PO SCH (16:01)
[2019-03-24] MEDS: Leptospermum Honey Paste 44 ML TUBE TP SCH (18:39)
[2019-03-25 01:10] LABS: Hematocrit 27.1 % (35.3-44.9); Hemoglobin 8.1 g/dL (11.5-15.4); Mean Corpuscular HGB Conc 29.9 g/dL (31.6-35.5); Mean Corpuscular Hemoglobin 29.1 pg (28.0-33.3); Mean Corpuscular Volume 97.5 fL (83.0-100.0); Mean Platelet Volume 9.9 fL (9.4-12.4); Platelet Count 207 K/mcL (140-400); Red Blood Count 2.78 M/mcL (3.82-4.97); Red Cell Distribution Width 15.1 % (11.5-14.5)
[2019-03-25 01:29] LABS: Potassium 3.9 mEq/L (3.5-5.1)
[2019-03-25] MEDS: *HR* Heparin 5,000 UNIT/ML VIAL SQ SCH ×2 (05:36→17:44)
[2019-03-25] MEDS: Aspirin 81 MG TAB.CHEW PO SCH (07:44)
[2019-03-25] MEDS: Folic Acid 1 MG TABLET PO SCH (07:44)
[2019-03-25] MEDS: Isosorbide MONOnitrate (24 HR) 60 MG TAB.ER.24H PO SCH (07:44)
[2019-03-25] MEDS: Leptospermum Honey Paste 44 ML TUBE TP SCH (07:45)
[2019-03-25] MEDS ORDERED: 0.9 % Sodium Chloride 250 ML IVC PRN (07:49)
[2019-03-25] MEDS ORDERED: *HR* Heparin 10,000 UNIT/10 ML VIAL IV PRN (07:49)
[2019-03-25] MEDS ORDERED: 0.9 % Sodium Chloride 1,000 ML PRIME SCH (08:00)
[2019-03-25] MEDS ORDERED: 0.9 % Sodium Chloride 2,000 ML ONE (08:07)
--- NOTE | 2019-03-25 10:33 | Infectious Disease Progress No ---
ID Progress Note Date of Encounter: 03/25/19 Time of Encounter: 10:31 - Subjective Subjective: Patient seen and examined at bedside this morning, she is resting comfortable and denies any complaints. She has had a permanent dialysis catheter placed. She denies any pain, fevers, chills, shortness of breath. Her white blood cell count continues remained within normal limits, she is afebrile and hemodynamically stable. No complaints today. Patient pending transfer for aortic aneurysm. - Objective CBC & Chem 7: 03/25/19 00:17 03/25/19 00:17 - Exam Vitals: Temp Pulse Resp BP Pulse Ox 98.5 F 79 16 140/84 97 03/25/19 06:46 03/25/19 06:46 03/25/19 06:46 03/25/19 06:46 03/25/19 06:46 Exam: General: frail appearing elderly female resting comfortably in bed HEENT: head is atraumatic and normocephalic, pupils are equal, EOMI, external ears and nares patent. mucosa moist. Neck: no JVD, trahcea midline Chest: permanent dialysis catheter in place on right, midline sternotomy scar, symmetrical chest wall rise, no tenderness to palpation Cardiovascular: regular rate and rhythm, no murmurs Respiratory: clear to auscultation bilaterally Abdomen: Surgical incisions are healing, no surrounding erythema. Abdomen is soft and nontender. No guarding or rigidity. Extremities:erythema present on bilateral lower extremities Neurological: alert and oriented, no obvious focal neurological deficits Psych: appropriate mood and affect - Assessment and Plan (1) Sepsis Status: Acute -Leukocytosis with tachycardia. Likely secondary to infected peritoneal dialysis catheter with subsequent peritonitis -Supported by positive peritoneal fluid cultures for staphylococcus shleiferi -Catheter removed and ascites drained by surgery -Leukocytosis resolved, afebrile, and hemodynamically stable -Started on Augmentin Plan: -Sepsis resolved -continue Augmentin, renally dosed at 500mg Q24H, for 7 days through 03/29/19 -On days that patient will have dialysis give augmentin after dialysis Qualifiers: Sepsis type: sepsis due to unspecified organism Qualified Code(s): A41.9 - Sepsis, unspecified organism SNOMED Code(s): 01401640 (2) Peritonitis associated with peritoneal dialysis Status: Acute -Concern is high for sepsis secondary to peritonitis from infected peritoneal dialysis catheter -Her peritoneal fluid and catheter culture grew staph Schleiferi -Therefore suspicion was high for peritonitis associated with peritoneal dialysis -The catheter was removed and ascites was drained by surgery -Treated with vancomycin and Zosyn initially, switched to Augmentin Plan: -Sepsis resolved -Continue augmentin 500mg Q24H for 7 days through 03/29/19 SNOMED Code(s): 384856720 (3) End-stage renal disease on hemodialysis Status: Acute -Currently on hemodialysis by nephrology -Renally dosing Augmentin SNOMED Code(s): 256979763 (4) Aortic aneurysm Status: Acute -CT surgery recommending repair of aneurysm measuring 8.8cm x 5.2cm after treatment of acute illness -Patient pending transfer to [facility] for evaluation of her large complex thoracic aortic aneurysm Qualifiers: Aortic location: thoracic aorta Presence of rupture: without rupture Qualified Code(s): I71.2 - Thoracic aortic aneurysm, without rupture SNOMED Code(s): 34421991 Consult Discharge Plan - Plan Instructions: Heart Failure (DC), Peripheral Vascular Disorders (DC), Anemia (GEN) Referrals: Fausto Gao DO [Primary Care Provider] - - Attending Attestation I examined this patient and my medical decision-making was reviewed with the Resident Physician. I agree with the documented findings, disposition and treatment plan as described except to the extent set forth below. Assessment and plan: Sepsis Peritonitis associated with peritoneal dialysis causative organism corynebacterium and Staphylococcus schleiferi methicilin sensitive End-stage renal disease on hemodialysis Aortic aneurysm Recommendations continue augmentin x 7 days patient being transferred to [facility] for eval of aortic aneurysm
[2019-03-25] MEDS: Sodium Thiosulfate 25 GM in EMPTY BAG 1 EACH IVPB SCH (15:40)
--- NOTE | 2019-03-25 16:08 | Nephrology Progress Note ---
Date of Encounter: 03/25/19 Time of Encounter: 16:07 - Assessment and Plan (1) ESRD (end stage renal disease) Current Visit: Yes Status: Chronic She was converted to Hemodialyis earlier in this admission due to very poor compliance with PD prior to arrival. HD MWF. Renal vitamins. Renal dose medications. Renal diet. Additional dialysis and ultrafiltration as needed. Once infection is cleared plan for placement of her tunneled dialysis catheter. She will receive sodium thiosulfate for empiric management of calciphylaxsis. (2) Erythema of lower limb Current Visit: Yes Status: Acute concern for calciphylaxsis. Evaluated by vascular surgery. Recommend wound nurse consult. Plan for empiric treatment with sodium thiosulfate starting 03/23/2019 for 3 months. (3) Hypertension Current Visit: Yes Status: Chronic Titrate blood pressure medication as needed. Qualifiers: Hypertension type: renovascular hypertension Qualified Code(s): I15.0 - Renovascular hypertension (4) Uremia Current Visit: Yes Status: Resolved (5) Hypokalemia Current Visit: Yes Status: Acute (6) Anemia Current Visit: Yes Status: Acute Qualifiers: Anemia type: unspecified type Qualified Code(s): D64.9 - Anemia, unspecified (7) PD catheter dysfunction Current Visit: Yes Status: Acute Qualifiers: Encounter type: initial encounter Qualified Code(s): T85.611A - Breakdown (mechanical) of intraperitoneal dialysis catheter, initial encounter Subjective Principal diagnosis: ESRD, Switching from PD to HD Interval history: Patient was seen and evaluated. She had no new complaints. Her ROS is otherwise stable. Objective - Vital Signs Vital signs: Vital Signs Temp Pulse Resp BP Pulse Ox 03/25/19 15:25 102/49 03/25/19 15:10 105/46 03/25/19 14:55 114/57 03/25/19 14:40 100/42 03/25/19 14:25 113/55 03/25/19 14:10 109/63 03/25/19 13:55 128/69 03/25/19 13:40 98 F 15 113/68 03/25/19 10:59 98.5 F 77 16 155/79 99 03/25/19 06:46 98.5 F 79 16 140/84 97 03/25/19 03:49 98.5 F 86 17 145/85 99 03/25/19 00:26 98.8 F 82 17 129/73 99 03/24/19 19:47 99.7 F H 92 17 131/76 98 Intake and Output 03/25/19 03/25/19 03/25/19 07:59 15:59 23:59 Intake Total 960 / 960 Output Total 0 / 0 Balance 960 / 960 Intake: Oral 360 / 360 Intake, Rinseback and Flushes 600 / 600 Output: Urine 0 / 0 Other: Meal Breakfast Percent of Meal Consumed 20% Hemodialysis Net Fluid Removed 1526 (mL) - General Appearance General appearance: Present: well-developed, well-nourished, chronically ill, frail EENT: Present: ATNC Neck: Present: supple Cardiology: Present: regular rate - Lab 03/25/19 00:17 03/25/19 00:17 Most recent lab results Calcium 8.0 mg/dL (8.6-10.3) L 03/25/19 00:17 Phosphorus 4.6 mg/dL (2.7-4.5) H 03/24/19 03:38 Magnesium 1.8 mg/dL (1.6-2.6) 03/13/19 03:55 Consult Discharge Plan - Plan Instructions: Heart Failure (DC), Peripheral Vascular Disorders (DC), Anemia (GEN) Referrals: Fausto Gao DO [Primary Care Provider] -
--- NOTE | 2019-03-25 17:13 | Internal Med Progress Note ---
Hospitalist Progress Note - Encounter Date of Encounter: 03/25/19 Time of Encounter: 11:00 - Subjective Interval History: Patient awaiting transfer to [facility] per cardiothoracic recommendations due to large complex thoracic aortic aneurysm - Exam Vitals: Temp Pulse Resp BP Pulse Ox 97.7 F 77 18 139/71 99 03/25/19 16:55 03/25/19 10:59 03/25/19 16:55 03/25/19 16:55 03/25/19 10:59 Exam: Gen.: Nonacute distress, alert and oriented 3 ENT: Mucosal membranes moist Respiratory: Lungs are clear to auscultation bilaterally without any wheezing rhonchi or rales Cardiovascular: Normal S1 and S2 regular rate rhythm no murmurs rubs or gallops Abdomen: Soft, nontender and nondistended with positive bowel sounds Extremities: No lower extremity edema Skin: Normal color - Assessment and Plan (1) Aortic aneurysm Current Visit: Yes Status: Acute Assessment and Plan: Patient may need transfer to tertiary care center per cardiothoracic recommendations due to complex thoracic aneurysm (2) Elevated troponin Current Visit: Yes Status: Acute Assessment and Plan: Concern for non-ST elevation ND. Patient to transfer to [facility] for further workup and management as above. (3) Hypertensive renal disease with renal failure Current Visit: Yes Status: Chronic Assessment and Plan: Fairly controlled. (4) Ischemic cardiomyopathy Current Visit: Yes Status: Acute Assessment and Plan: Volume management with hemodialysis. Continue Lopressor, lisinopril, Imdur. (5) Coronary artery disease Current Visit: Yes Status: Acute (6) Peritoneal dialysis catheter infection Current Visit: Yes Status: Acute Assessment and Plan: Will continue day 3 of 7 of Augmentin per ID recommendations (7) End-stage renal disease on hemodialysis Current Visit: Yes Status: Acute Assessment and Plan: Currently on hemodialysis. (8) Sepsis Current Visit: Yes Status: Acute Assessment and Plan: Resolved;secondary to peritonitis due to Staphylococcus schleiferi DVT Prophylaxis: Heparin subcutaneous - Time Spent with Patient Total time spent is greater than 50% in coordination of care (as documented) at patient's floor/unit and/or counseling patient: Internal Medicine: Result - Labs CBC & Chem 7: 03/25/19 00:17 03/25/19 00:17 Labs: Short CBC 03/25/19 Range/Units 00:17 WBC 10.0 (4.3-11.1) K/mcL Hgb 8.1 L (11.5-15.4) g/dL Hct 27.1 L (35.3-44.9) % Plt Count 207 (140-400) K/mcL BMP 03/25/19 00:17 Sodium 138 Potassium 3.9 Chloride 93 L Carbon Dioxide 32 H BUN 33 H Creatinine 3.81 H Glucose 84 Calcium 8.0 L - ABG Interpretation ABG results: PT/INR, D-dimer PT 12.4 Seconds (9.4-12.1) H 03/23/19 03:05 Consult Discharge Plan - Plan Instructions: Heart Failure (DC), Peripheral Vascular Disorders (DC), Anemia (GEN) Referrals: Fausto Gao DO [Primary Care Provider] - (1) Aortic aneurysm Qualifiers: Aortic location: thoracic aorta Presence of rupture: without rupture Qualified Code(s): I71.2 - Thoracic aortic aneurysm, without rupture (5) Coronary artery disease Qualifiers: Coronary Disease-Associated Artery/Lesion type: [place] artery [place] vs. transplanted heart: [place] heart Associated angina: without angina Qualified Code(s): I25.10 - Atherosclerotic heart disease of [place] coronary artery without angina pectoris (6) Peritoneal dialysis catheter infection Qualifiers: Encounter type: initial encounter Qualified Code(s): T85.71XA - Infection and inflammatory reaction due to peritoneal dialysis catheter, initial encounter (8) Sepsis Qualifiers: Sepsis type: sepsis due to unspecified organism Qualified Code(s): A41.9 - Sepsis, unspecified organism
[2019-03-25] MEDS: Amoxicillin/Clavulanate 500 MG TABLET PO SCH (17:44)
[2019-03-25 19:21] VITALS: BP 131/71
[2019-03-25] MEDS: *HR* OxyCODONE/APAP 5/325 TABLET PO PRN (20:26)
[2019-03-26] MEDS ORDERED: Leptospermum Honey Paste 44 ML TUBE TP SCH (21:00)
== END 2019-03-25 23:15 | disposition other institution (70) | DRG 907 ==
LOC: 2ANU 15:45 → EMEROOARM 15:45 → SUATTDRO 21:20 → 2ANU 23:37
PROVIDERS: ADMIT Internal Medicine; ATTEND Hospitalist
PROC: IRPERMA (2019-03-24 14:00)